=== PATIENT | female | born 1970 | race Caucasian/White ===

== ENCOUNTER 2020-02-20 12:27 | Outpatient (CLI) | payer MEDICARE, MEDICAID, SELFPAY ==
--- NOTE | ~2020-02-20 | MR_ITS ---
EXAMINATION: MR lumbar spine wo con EXAM DATE: 02/20/2020 14:20 INDICATION: Radiculopathy, lumbar region. TECHNIQUE: Multi-sequential, multiplanar MR images of the lumbar spine were obtained without contrast . Sagittal T1, T2, T2 fat saturation images. Axial T2 weighted images. Comparison is made to prior examination from 01/11/2017. FINDINGS: Study is limited due to patient motion. There is moderate to severe disc disease at L3-4 with large a mount of edema at these endplates, mild loss of the vertebral body heights, likely acute or subacute compression fractures. There is been interval partial fusion of the L4-5 disc space. There is moderat e to severe loss of the L5-S1 disc height with 4 mm retrolisthesis. Level by level evaluation: T12-L1: Disc does not extend beyond the endplate margin. Facet arthropathy: Poorly visualized, motion. Neural foraminal stenosis: No stenosis. Central canal stenosis: No stenosis. L1-L2: Disc does not extend beyond the endplate margin. Facet arthropathy: Poorly visualized, motion. Neural foraminal stenosis: No stenosis. Central canal stenosis: No stenosis. L2-L3: There is a mild diffuse disc bulge. Facet arthropathy: Mild. Neural foraminal stenosis: No stenosis. Central canal stenosis: No stenosis. L3-L4: There is a large diffuse disc bulge. Facet arthropathy: Severe . Ligamentum flavum enlargement. Neural foraminal stenosis: Moderate left, mild to moderate right. Central canal stenosis: Severe. L4-L5: Some discogenic material bulging posteriorly, but level appears fused, Facet arthropathy: Bulky, but fused. Neural foraminal stenosis: Moderate bilateral. Central canal stenosis: Moderate to severe. L5-S1: There is a large diffuse disc bulge. Facet arthropathy: Moderate. Neural foraminal stenosis: Moderate to severe bilateral. Central canal stenosis: Moderate. Compared to prior study, there has been progression in the spondylosis at L3-4 in particular. IMPRESSION: 1. L3-4 acute or subacute compression fractures, severe central canal stenosis. 2. Lesser spondylosis above. Reviewed, dictated and finalized at location A. IMPRESSION: 1. L3-4 acute or subacute compression fractures, severe central canal stenosis . 2. Lesser spondylosis above.
== END 2020-02-20 12:28 | disposition home or self-care (01) ==
LOC: ANHIMG 12:39
PROVIDERS: PCP Internal Medicine; Visit Provider Nurse Practitioner Family
DX: M47.26 Other spondylosis with radiculopathy, lumbar region (principal)
CPT/HCPCS: 72148

== ENCOUNTER 2023-07-20 18:43 | Inpatient (IN) | payer MEDICARE, MEDICAID, SELFPAY ==
--- NOTE | ~2023-07-20 | XR_ITS ---
EXAM: XR knee RT 3V DATE: 07/20/2023 21:38 HISTORY: fall WITH NON SPECIFIC RIGHT KNEE AND PELVIC PAIN . COMPARISON: 03/11/2019. FINDINGS: Decreased mineralization. No fracture or dislocation. No lytic or blastic lesion. Severe t ricompartmental osteoarthritis. Loss of valgus alignment. No erosion or periosteal change. Soft tissu es within normal limits. Moderate volume joint effusion. IMPRESSION: No acute osseous finding in the right knee. Reviewed, dictated and finalized at location K. WASHER
--- NOTE | ~2023-07-20 | XR_ITS ---
EXAM: XR pelvis 1-2V DATE: 07/20/2023 21:38 HISTORY: Fall . COMPARISON: None available. FINDINGS: Exam limited by body habitus. Decreased mineralization. No fracture or dislocation. No lyti c or blastic lesion. Degenerative change in the lumbar spine. Mild bilateral hip osteoarthritis. No e rosion or periosteal change. Soft tissues within normal limits. IMPRESSION: No acute osseous finding in the pelvis. Reviewed, dictated and finalized at location K. ANICAL PENCILS ASSEMBLER
--- NOTE | ~2023-07-20 | XR_ITS ---
EXAMINATION: XR chest 1V portable Exam Date/Time: 07/20/2023 19:00 MEDICAL ESTHETICIAN HISTORY: SOB, weakness, fall Comparison: 09/10/2009. RESULT: Exam limited by body habitus. Lines, tubes, and devices: None. Lungs and pleura: Clear. Cardiomediastinal silhouette: Stable. Other: No acute osseous or upper abdominal finding. IMPRESSION: No acute cardiopulmonary process. Reviewed, dictated and finalized at location K. CAL ESTHETICIAN
[2023-07-20 18:48] VITALS: BP 171/100; RESP 20; TEMP 36.4; O2SAT 98
--- NOTE | 2023-07-20 18:52 | ECG_ITS ---
Measurements Intervals [place] Rate: 104 P: 36 MS: 188 QRS: -10 QRSD: 88 T: 43 QT: 336 QTc: 443 Interpretive Statements SINUS TACHYCARDIA INCOMPLETE RIGHT BUNDLE BRANCH BLOCK BORDERLINE R WAVE PROGRESSION, ANTERIOR LEADS INFERIOR INFARCT, AGE INDETERMINATE BORDERLINE ST ABNORMALITY- HIGH LATERAL LEADS BASELINE WANDER- V1-V2 ABNORMAL ECG NO PREVIOUS ECG AVAILABLE FOR COMPARISON Electronically Signed On 07-21-2023 8:09:41 [employer] by Gagandeep Flores D.O.
[2023-07-20 18:59] VITALS: PULSE 105
--- NOTE | 2023-07-20 19:54 | ED.GENADULT ---
HPI - General Adult General Chief complaint: Weakness Stated complaint: weakness, fall, failure to thrive Time Seen by Provider: 07/20/23 19:07 History of Present Illness HPI narrative: This is a 52-year-old female brought in for home a for fall. per EMS her house is incredibly disheveled. The patient was covered in feces. She was unable to get up off floor. Typically the patient says she is able to walk with a cane or a walker. She has 2 home health aides who come and help her although 1 of them is currently ill with a viral illness. Patient notes that she has had some diarrhea today it feels weaker than usual but denies chest pain shortness of breath abdominal pain fever chills cough or symptoms. Related Data Allergies Allergy/AdvReac Type Severity Reaction Status Date / Time latex Allergy Mild Rash Unverified 07/20/23 20:16 Sulfa (Sulfonamide Allergy Redness of Verified 07/20/23 20:16 Antibiotics) Skin vancomycin Allergy Redness of Verified 07/20/23 20:16 Skin PMFSH Past Medical History Medical History Bipolar disorder, unspecified COPD (chronic obstructive pulmonary disease) Diabetes Hypertension Exam Narrative: APPEARANCE: Patient is disheveled, malodorous Head: atraumatic. EYES: EOMI, NOSE: Atraumatic NECK: Trachea midline RESPIRATORY: No increased rate of breathing, clear to auscultation CARDIOVASCULAR: RRR, no peripheral ABDOMINAL: Obese, nontender no guarding rebound, no CVA tenderness MUSCULOSKELETAl: No obvious deformities NEURO: Alert. Moving 4/4 extremities SKIN:: Warm, dry. Normal color, minor abrasion with right knee PSYCHIATRIC: Normal affect Course Vital Signs Vital signs: Vital Signs Temperature 97.6 F 07/20/23 18:48 Respiratory Rate 20 07/20/23 18:48 Blood Pressure 171/100 H 07/20/23 18:48 Pulse Oximetry 98 07/20/23 18:48 Oxygen Delivery Nasal Cannula 07/20/23 18:48 Oxygen Flow Rate 2 07/20/23 18:48 Temperature 97.6 F 07/20/23 18:48 Pulse Rate 92 07/20/23 22:24 Respiratory Rate 19 07/20/23 22:24 Blood Pressure 150/91 H 07/20/23 22:24 Pulse Oximetry 98 12/31/23 22:24 Oxygen Delivery Nasal Cannula 07/20/23 18:48 Oxygen Flow Rate 2 07/20/23 18:48 Medical Decision Making [facility] Narrative Medical decision making narrative: -Course: 52-year-old female presenting with weakness and a fall at home. Workup was significant for influenza A. Patient's gait is still unsteady and she has a poor candidate for discharge due to debility and poor social support. Patient will be admitted to observation or PT OT and social work consult Started on Tamiflu. -DDX includes but is not limited to: dehydration, COVID, flu, RSV, pneumonia, UTI, sepsis -Co-morbidities complicating care: bipolar disorder, hypertension, COPD, diabetes, morbid obesity -Social determinants of health: disabled due to chronic knee pain and psychiatric illness. Lives in apartment where she has help from home health workers -Hx from independent Sources: EMS- they reported the house is unfit for human habition. Dirty/Garbage/feces everywhere. -Independent interpretation of studies: white count 12.4. Creatinine 1.5. No baseline to compare. Lactic 2.4. Patient has been fluid resuscitated. Troponin tech double. BNP normal. Urine not indicative of infection. Positive for flu A. Pelvis knee and chest x-ray is normal. Independent EKG interpretation: Rhythm [sinus], Rate [104], [place] -[normal], [place] -[normal], QRS [narrow], QTC [normal], T waves -[negative for concerning inversions], ST Segments - [Negative for concerning elevations] Final interpretations: Sinus tachycardia with nonspecific T-wave inversions. Trop neg x2. -Discussion of Management/Consultants: Estrella - Hospitalist -Interventions: DuoNeb treatment, 3 L normal saline, Tamiflu -Shared decision making / Disposition: Observation Vital Signs Vital Signs: Vital Signs Temperature 97.6 F 07/20/23 18:48 Respiratory Rate 20 07/20/23 18:48 Blood Pressure 171/100 H 07/20/23 18:48 Pulse Oximetry 98 07/20/23 18:48 Oxygen Delivery Nasal Cannula 07/20/23 18:48 Oxygen Flow Rate 2 07/20/23 18:48 Temperature 97.6 F 07/20/23 18:48 Pulse Rate 92 07/20/23 22:24 Respiratory Rate 19 07/20/23 22:24 Blood Pressure 150/91 H 07/20/23 22:24 Pulse Oximetry 98 07/20/23 22:24 Oxygen Delivery Nasal Cannula 07/20/23 18:48 Oxygen Flow Rate 2 07/20/23 18:48 Lab Data 07/20/23 20:10 07/20/23 20:10 Labs: Lab Results 07/20/23 07/20/23 Range/Units 20:10 20:53 WBC 12.4 H (4.5-10.0) K/mm3 RBC 4.63 (4.2-5.4) M/mm3 Hgb 15.5 H (12.0-15.0) g/dL Hct 47.2 H (37.0-47.0) % MCV 101.9 H (80-100) fl MCH 33.5 (26-34) pg MCHC 32.8 (32-36) g/dl RDW 13.2 (11.5-14.5) % Plt Count 239 (150-375) k/mm3 MPV 8.7 (7.4-10.4) fl Immature Gran % (Auto) 0.6 H (0-0.5) % Neut % (Auto) 82.2 H (45.5-73.1) % Lymph % (Auto) 8.3 L (18.3-44.2) % [place] % (Auto) 7.4 (2.6-8.5) % Eos % (Auto) 1.1 (0-4.4) % Baso % (Auto) 0.4 (0.2-1.2) % Lymph # (Auto) 1.02 (0.9-3.2) K/mm3 [place] # (Auto) 0.9 H (0.1-0.6) K/mm3 Eos # (Auto) 0.1 (0-0.3) K/mm3 Baso # (Auto) 0.1 (0.0-0.1) K/mm3 Abs Immat Gran (auto) 0.08 H (0.00-0.031) K/mm3 Absolute Neuts (auto) 10.2 H (1.3-6.7) K/mm3 Absolute Nucleated RBC 0.0 (0.0-0.012) K/mm3 Nucleated RBC % 0.0 (0.0-0.2) % PT 14.0 (11.1-14.7) Seconds INR 1.0 APTT 26.2 (22.3-36.8) SECONDS Sodium 137 (137-145) mmol/L Potassium 4.4 (3.4-5.0) mmol/L Chloride 101 (98-107) mmol/L Carbon Dioxide 25 (22-30) mmol/L Anion Gap 11 (8-16) mmol/L BUN 20 H (7-17) mg/dL Creatinine 1.50 H (0.7-1.0) mg/dL Estim Creat Clear Calc 55 ml/min Estimated GFR 36 L (59 - ) Glucose 221 H (65-110) mg/dL Lactic Acid 2.4 H (0.7-2.0) mmol/L Calcium 9.4 (8.4-10.2) mg/dL Phosphorus 2.2 L (2.5-4.5) mg/dL Magnesium 1.8 (1.6-2.3) mg/dL Total Bilirubin 0.5 (0.2-1.3) mg/dL AST 30 (14-36) U/L ALT 28 (6-35) U/L Alkaline Phosphatase 141 H (38-126) U/L Troponin I < 0.012 (0.000-0.034) ng/mL NT-Pro-B Natriuret Pep 362 H (19.9-100) pg/mL Total Protein 8.0 (6.3-8.2) g/dL Albumin 4.1 (3.5-5.1) g/dL Lipase 118 (23-300) U/L TSH (Reflex) 0.919 (0.465-4.68) uIU/mL Urine Color Dark yellow (Yellow) Urine Appearance Cloudy H (Clear) Urine pH 5.5 (5.0-9.0) Ur Specific [place] 1.035 (1.001-1.035) Urine Protein 2+ H (Negative) mg/dL Urine Glucose (UA) Negative (Negative) mg/dL Urine Ketones Trace H (Negative) mg/dL Ur Blood (Man) Negative (Negative) Urine Nitrate Negative (Negative) Urine Bilirubin Negative (Negative) Urine Urobilinogen 1.0 (<2.0) mg/dL Add Ur Microanalysis Reviewed Leukocyte Esterase Rfl Negative (Negative) JOSE ALBERTO/UL Urine RBC 0-2 (0-2) /hpf Urine WBC 0-5 /hpf Ur Squamous Epith Cells Few (Few) /hpf Urine Bacteria None seen /hpf Urine Casts 11-20 Influenza A (RT-PCR) Positive A (Negative) Influenza B (RT-PCR) Negative (Negative) RSV (RT-PCR) Negative (Negative) SARS-CoV-2 RNA (RT-PCR) Negative (Negative) Urine Characteristics Clear Discharge Plan Discharge Clinical Impression: Adult failure to thrive, Influenza A, Weakness Patient Disposition: Home, Self-Care Condition: Stable Instructions: Antibiotic Form Follow-up/Referrals: Neftali,MD Maykel [Primary Care Provider] -
[2023-07-20] MEDS: ALBUTEROL SULFATE NEB 2.5 MG/3 ML INH 5 MG INHALATION (20:00)
[2023-07-20] MEDS: IPRATROPIUM BR 0.02% INH SOLN 0.5 MG/2.5 ML VIAL 1 MG INHALATION (20:00)
[2023-07-20 20:08] VITALS: PULSE 105; RESP 14
[2023-07-20] MEDS: SODIUM CHLORIDE 0.9% IV 3,000 ML 999 ML IV CONT (20:16)
[2023-07-20 20:21] LABS: Basophils Absolute Auto 0.1 K/mm3 (0.0-0.1); Basophils Percent Auto 0.4 % (0.2-1.2); Eosinophils Absolute Auto 0.1 K/mm3 (0-0.3); Eosinophils Percent Auto 1.1 % (0-4.4); Hematocrit 47.2 % (37.0-47.0); Hemoglobin 15.5 g/dL (12.0-15.0); Immature Granulocyte Absolute 0.08 K/mm3 (0.00-0.031); Immature Granulocyte Percent A 0.6 % (0-0.5); Lymphocytes Absolute Auto 1.02 K/mm3 (0.9-3.2); Lymphocytes Percent Auto 8.3 % (18.3-44.2); Mean Corpuscular HGB Conc 32.8 g/dl (32-36); Mean Corpuscular Hemoglobin 33.5 pg (26-34); Mean Corpuscular Volume 101.9 fl (80-100); Mean Platelet Volume 8.7 fl (7.4-10.4); Monocytes Absolute Auto 0.9 K/mm3 (0.1-0.6); Monocytes Percent Auto 7.4 % (2.6-8.5); Neutrophils Absolute Auto 10.2 K/mm3 (1.3-6.7); Neutrophils Percent Auto 82.2 % (45.5-73.1); Platelet Count Result 239 k/mm3 (150-375); Red Blood Count 4.63 M/mm3 (4.2-5.4); Red Cell Distribution Width 13.2 % (11.5-14.5); White Blood Count 12.4 K/mm3 (4.5-10.0)
[2023-07-20 20:31] LABS: Partial Thromboplastin Time 26.2 SECONDS (22.3-36.8)
[2023-07-20 20:32] LABS: Alanine Aminotransferase 28 U/L (6-35); Albumin Level 4.1 g/dL (3.5-5.1); Alkaline Phosphatase 141 U/L (38-126); Anion Gap 11 mmol/L (8-16); Aspartate Amino Transferase 30 U/L (14-36); Bilirubin,Total 0.5 mg/dL (0.2-1.3); Blood Urea Nitrogen 20 mg/dL (7-17); Calcium 9.4 mg/dL (8.4-10.2); Carbon Dioxide 25 mmol/L (22-30); Chloride 101 mmol/L (98-107); Estimated CRCL calculation 55 ml/min; Estimated Glomerular Filt Rate 36; Glucose 221 mg/dL (65-110); Phosphorus 2.2 mg/dL (2.5-4.5); Potassium 4.4 mmol/L (3.4-5.0); Sodium 137 mmol/L (137-145)
[2023-07-20 20:33] LABS: Lactic Acid Reflex 2.4 mmol/L (0.7-2.0); Lipase 118 U/L (23-300); Magnesium 1.8 mg/dL (1.6-2.3)
[2023-07-20 20:40] VITALS: PULSE 108; RESP 13
[2023-07-20 20:41] LABS: NT Pro B Type Natriuretic Pept 362 pg/mL (19.9-100)
[2023-07-20 20:44] LABS: Troponin I < 0.012 ng/mL (0.000-0.034)
[2023-07-20 20:55] LABS: Influenza A QL RT-PCR Positive (Negative); Influenza B QL RT-PCR Negative (Negative); RSV RNA, RT-PCR Negative (Negative); SARS-CoV-2 RNA PCR Negative (Negative)
[2023-07-20 21:04] LABS: Thyroid Stimulating Hormone Reflex 0.919 uIU/mL (0.465-4.68)
[2023-07-20 21:10] LABS: Appearance Urine Cloudy (Clear); Bacteria Urine None Seen /hpf; Bilirubin Urine Negative (Negative); Blood Urine Negative (Negative); Color Urine Dark Yellow (Yellow); Glucose Urine UA Negative (Negative); Ketones Urine Trace mg/dL (Negative); Leukocyte Esterase Ur Negative LEU/UL (Negative); Need Manual Microscopic Reviewed; Nitrate Urine Negative (Negative); Protein Urine 2+ mg/dL (Negative); RBC Urine 0-2 /hpf (0-2); Specific Grav Ur 1.035 (1.001-1.035); Squamous Epithelial Cell Urine Few /hpf (Few); WBC Urine 0-5 /hpf; pH Urine 5.5 (5.0-9.0)
[2023-07-20 21:11] LABS: Add Urine Microscopic? YES
[2023-07-20] MEDS: OSELTAMIVIR PHOSPHATE 75 MG CAPSULE PO (21:43)
[2023-07-20 22:24] VITALS: BP 150/91; PULSE 92; RESP 19; O2SAT 98
[2023-07-20 23:17] LABS: Reflex Lactic Acid Yes or No Add Lactic
--- NOTE | 2023-07-20 23:54 | PM.IMHP ---
H&P: HPI History of Present Illness Date/Time: 07/20/23 23:54 Chief Complaint: Patient brought to the ER for evaluation after she fell out of bed at home Narrative: 52 years old morbidly obese female called 911 for lift assist after she fell out of bed. She said she was too weak to stand. EMS came to evaluate the patient and found the home neither fit nor safe to live in. Patient states that she has not taken above since [place]. There appeared to be fecal matter on bilateral lower extremities as well under the told nails. Her hair appeared dirty and matted. Her inner thighs were mottled, there was redness at both knees and redness in between and under her breasts. Patient brought to the ER for evaluation. Workup was done which showed LUCA and electrolyte imbalance. She had unsteady gait and unable to ambulate with high risk for fall. She also tested positive for flu. She is being placed under observation for medical management, IV hydration, PT/OT and and care coordination consult for placement. Review of Systems Review of Systems: 14 systems were reviewed with pertinent positives and negatives per HPI. Except as documented in the HPI/progress notes, all other systems were reviewed and are negative. All systems reviewed & are unremarkable except as noted in HPI and below PMFSH Past Medical History Medical History Bipolar disorder, unspecified COPD (chronic obstructive pulmonary disease) Diabetes Hypertension Social History Social History Smoking packs per day: 2 Smoking cigarettes per day: 40.0 Years smoked: 6 Smoking pack-years: 12.00 Smoking status: Former smoker Tobacco type: cigarettes Meds Home Medications and Allergies Allergies Allergy/AdvReac Type Severity Reaction Status Date / Time latex Allergy Mild Rash Verified 07/20/23 23:54 Sulfa (Sulfonamide Allergy Redness of Verified 07/20/23 23:54 Antibiotics) Skin vancomycin Allergy Redness of Verified 07/20/23 23:54 Skin morphine AdvReac Redness of Verified 07/21/23 00:28 Skin Vital Signs Vital Signs - 24 hr 07/20/23 18:48 07/20/23 18:59 07/20/23 20:08 Temperature 36.4 C Pulse Rate 105 H 105 H Respiratory Rate 20 14 Blood Pressure 171/100 H Pulse Oximetry 98 Oxygen Delivery Nasal Cannula Oxygen Flow Rate 2 07/20/23 20:40 07/20/23 22:24 Temperature Pulse Rate 108 H 92 Respiratory Rate 13 19 Blood Pressure 150/91 H Pulse Oximetry 98 Oxygen Delivery Oxygen Flow Rate Exam Narrative: PHYSICAL EXAMINATION: Vital signs: Please see the chart General physical exam: Morbidly obese female, lying in bed, disheveled in appearance, appears to be tired fatigue Head/eyes: Atraumatic, EOMI, PERRLA ENT: + dry mucous membranes, nasal passages clear Neck: Supple, full range of motion, trachea midline CVS: S1 + S2, regular rate and rhythm, no murmurs Respiratory: Bilaterally fair air entry in both lung ly, mild B/L crackles, symmetric chest expansion, no distress Abdomen: Soft, non-tender, bowel sounds +ve, no organomegaly Extremities: No clubbing, no cyanosis, no edema, no calf tenderness Musculoskeletal: Moves all, decreased range of motion, no muscle spasms Skin: Warm, dry, no jaundice, no cyanosis, + redness on knees and under breasts, + dirty nails of the feet Neurological: Awake, alert, oriented x 3, cranial nerves II-XII intact, no focal neurological deficits Psychiatric: Normal mood, non suicidal H&P: Results Labs Labs: Short CBC 07/20/23 Range/Units 20:10 WBC 12.4 H (4.5-10.0) K/mm3 Hgb 15.5 H (12.0-15.0) g/dL Hct 47.2 H (37.0-47.0) % Plt Count 239 (150-375) k/mm3 [facility] 07/20/23 20:10 Sodium 137 Potassium 4.4 Chloride 101 Carbon Dioxide 25 BUN 20 H Creatinine 1.50 H Glucose 221 H Calcium 9.4 Cardiac Enzymes 07/20/23 Range/Units 20:10 Troponin I < 0.012 (0.000-0.034) ng/mL Liver Function 07/20/23 Range/Units 20:10 Total Bilirubin 0.5 (0.2-1.3) mg/dL AST 30 (14-36) U/L ALT 28 (6-35) U/L Alkaline Phosphatase 141 H (38-126) U/L Albumin 4.1 (3.5-5.1) g/dL Urine 07/20/23 Range/Units 20:53 Urine Color Dark yellow (Yellow) Urine Appearance Cloudy H (Clear) Urine pH 5.5 (5.0-9.0) Ur Specific [place] 1.035 (1.001-1.035) Urine Protein 2+ H (Negative) mg/dL Urine Glucose (UA) Negative (Negative) mg/dL Assessment and Plan Assessment and plan (1) Adult failure to thrive: Code(s): R62.7 - Adult failure to thrive Status: Acute (2) Influenza A: Code(s): J10.1 - Influenza due to other identified influenza virus with other respiratory manifestations Status: Acute (3) Weakness: Code(s): R53.1 - Weakness Status: Acute (4) Bipolar disorder, unspecified: Code(s): F31.9 - Bipolar disorder, unspecified Status: Acute (5) COPD (chronic obstructive pulmonary disease): Code(s): J44.9 - Chronic obstructive pulmonary disease, unspecified Status: Acute (6) Diabetes: Code(s): E11.9 - Type 2 diabetes mellitus without complications Status: Acute (7) Hypertension: Code(s): I10 - Essential (primary) hypertension Status: Acute (8) LUCA (acute kidney injury): Code(s): N17.9 - Acute kidney failure, unspecified Status: Acute (9) At high risk for falls: Code(s): Z91.81 - History of falling Status: Acute (10) Intertrigo: Code(s): L30.4 - Erythema intertrigo Status: Acute Plan Place patient under observation [place] [facility] Patient started on Tamiflu 75 mg p.o. b.i.d. for 5 days Patient appears dehydrated causing her LUCA She received 1 L of normal saline in the ER Patient started on normal saline 100 cc/hour on the floor Strict input and output monitoring Patient had mild leukocytosis with lactic acidosis which responded well to IV hydration Lactic acidosis has now resolved Patient has mild hypophosphatemia which is being corrected with IV potassium phosphate Patient is at high risk for fall and unable to take care of herself at home Miconazole cream ordered for intertrigo at multiple sites Patient started on Accu-Cheks with Insulin coverage as per protocol PT/OT evaluation ordered Care coordination consult given for safe placement ? Patient seen and examined at bedside ? Collaborated with patient's nurse at the bedside in detail and addressed all concerns ? Labs, electrolytes, radiology, investigations and test results reviewed ? Spoke with ED provider and discussed patient's presentation, ED treatment, and workup in thorough detail ? ED/Consult/Nursing/Ancilliary notes on the chart reviewed and appreciated ? Spoke with patient/family at the bedside and answered all the questions that they had Continue with home meds. Monitor patient closely while admitted. Patient needs close follow up with PCP/specialists as an outpatient to address chronic medical issues. Repeat labs in a.m. Electrolyte replacement as per protocol. Patient will be monitored very closely on the floor. Further recommendations as per the hospital course. Patient's medical management will be taken over by our hospitalist team in a.m.
[2023-07-20 23:57] VITALS: BP 150/94; PULSE 90; RESP 18; O2SAT 96
[2023-07-21] VITALS (9 sets, daily range): BP systolic 118–160; BP diastolic 62–87; PULSE 78–98; RESP 14–22; TEMP 36.2–36.7; O2SAT 92–100; BMI 55.6
--- NOTE | 2023-07-21 00:15 | ADMGEN ---
This patient, Kathleen Oreilly, was admitted to Medical Room 258-01. Patient/family oriented to hospital policies and general routines including ID bracelet, bed and alarms, visiting hours, pain management, procedures, bathroom and other care routines, personal items, smoking policy, room service/diet, and visiting hours. Information on how to activate the Rapid Response Team has been discussed. Patient/Family are encouraged to report perceived risks to care and to ask questions if they do not understand what they are told or what they should do.
[2023-07-21 00:19] LABS: Lactic Acid 1.5 mmol/L (0.7-2.0)
[2023-07-21 00:30] LABS: Troponin I < 0.012 ng/mL (0.000-0.034)
--- NOTE | 2023-07-21 01:02 | PC.NURSE ---
Unable to complete patient's med rec at this time. She states she does not know what medications she takes, but her friend Joel would be able to help. Unfortunately, she does not want us to call him until the morning. This information was given to patient's primary nurse Wild melendrez.
[2023-07-21] MEDS: SODIUM CHLORIDE 0.9% IV 1,000 ML 100 ML IV CONT ×3 (01:07→20:13)
[2023-07-21] MEDS: POTASSIUM PHOS,M-BASIC-D-BASIC 20 MMOL in SODIUM CHLORIDE 0.9% IV 250 ML 64.17 MMOL IVPB (01:07)
[2023-07-21 08:52] LABS: Basophils Percent Auto 0.6 % (0.2-1.2); Eosinophils Absolute Auto 0.2 K/mm3 (0-0.3); Eosinophils Percent Auto 3.1 % (0-4.4); Hematocrit 42.2 % (37.0-47.0); Hemoglobin 13.6 g/dL (12.0-15.0); Immature Granulocyte Absolute 0.04 K/mm3 (0.00-0.031); Immature Granulocyte Percent A 0.6 % (0-0.5); Lymphocytes Percent Auto 30.9 % (18.3-44.2); Mean Corpuscular HGB Conc 32.2 g/dl (32-36); Mean Corpuscular Hemoglobin 33.3 pg (26-34); Mean Corpuscular Volume 103.2 fl (80-100); Mean Platelet Volume 8.5 fl (7.4-10.4); Monocytes Absolute Auto 0.9 K/mm3 (0.1-0.6); Monocytes Percent Auto 13.5 % (2.6-8.5); Neutrophils Absolute Auto 3.5 K/mm3 (1.3-6.7); Neutrophils Percent Auto 51.3 % (45.5-73.1); Platelet Count Result 167 k/mm3 (150-375); Red Blood Count 4.09 M/mm3 (4.2-5.4); White Blood Count 6.8 K/mm3 (4.5-10.0)
[2023-07-21 09:04] LABS: Alanine Aminotransferase 22 U/L (6-35); Albumin Level 3.6 g/dL (3.5-5.1); Alkaline Phosphatase 108 U/L (38-126); Anion Gap 10 mmol/L (8-16); Aspartate Amino Transferase 26 U/L (14-36); Bilirubin,Total 0.5 mg/dL (0.2-1.3); Blood Urea Nitrogen 16 mg/dL (7-17); Calcium 8.3 mg/dL (8.4-10.2); Carbon Dioxide 23 mmol/L (22-30); Chloride 104 mmol/L (98-107); Estimated CRCL calculation 69 ml/min; Estimated Glomerular Filt Rate 47; Glucose 129 mg/dL (65-110); Potassium 4.2 mmol/L (3.4-5.0); Sodium 137 mmol/L (137-145)
[2023-07-21] MEDS: ENOXAPARIN 40 MG/0.4 ML SYRINGE SUB-Q ×2 (10:04→20:16)
--- NOTE | 2023-07-21 14:29 | P.PNIM_ITS ---
Progress Note: A&P Assessment and Plan (1) Influenza A: Code(s): J10.1 - Influenza due to other identified influenza virus with other respiratory manifestations Status: Acute Assessment and Plan: 07/21/23: * Respiratory panel showing positive for Influenza A * Currently on 2L NC * She is not in any acute respiratory distress (2) Weakness: Code(s): R53.1 - Weakness Status: Acute Assessment and Plan: 07/21/23: * Patient reports she has fallen at least 3 x in the last week or so. * PT and OT ordered. (3) At high risk for falls: Code(s): Z91.81 - History of falling Status: Acute Assessment and Plan: 07/21/23: * Patient has had 3 falls in the past week. She has abrasion to right knee from last fall * Right knee x-ray negative for fracture or dislocation * PT and OT ordered (4) Bipolar disorder, unspecified: Code(s): F31.9 - Bipolar disorder, unspecified Status: Acute Assessment and Plan: 07/21/23: * Restarted Vraylar and Lamictal * Restarted Austedo (5) COPD (chronic obstructive pulmonary disease): Code(s): J44.9 - Chronic obstructive pulmonary disease, unspecified Status: Acute Assessment and Plan: 07/21/23: * of note * Currently on 2L NC (6) Diabetes: Code(s): E11.9 - Type 2 diabetes mellitus without complications Status: Acute Assessment and Plan: 07/21/23: * accu checks ordered AC/HS * hypoglycemic protocol * SSI for correction only * Hold glimepiride (7) Hypertension: Code(s): I10 - Essential (primary) hypertension Status: Acute Assessment and Plan: 07/21/23: * B/P ranging 138/75-151/87 * Restart Metoprolol (8) LUCA (acute kidney injury): Code(s): N17.9 - Acute kidney failure, unspecified Status: Acute Assessment and Plan: 07/21/23: * BUN 16, Creatinine 1.20, eGFR 47 * Continue to trend labs. (9) Intertrigo: Code(s): L30.4 - Erythema intertrigo Status: Acute Assessment and Plan: 07/21/23: * Miconazole powder ordered (10) Anxiety: Code(s): F41.9 - Anxiety disorder, unspecified Status: Acute Assessment and Plan: 07/21/23: * Restarted Buspar, hydroxyzine,Bupropion Time Spent With Patient Time with patient: Greater than 35 minutes Subjective Date/time seen: 07/21/23 14:29 Interval history: This is a 52 year old female who presented to the hospital on 07/20/23 for evaluation after a fall out fo the bed. EMS was called and patient was found to be in poor living conditions and poor hygeine. Work up in the hospital includes CXR was negative, right knee x-ray shown a moderate joint effusion and tricompartmental osteoarthritis, pelvis x-ray shown mild bilateral hip osteoar thritis. EKG shown sinus tachycardia with right BBB, rate 104 Respiratory panel shown that she was positive for Influenza A. WBC 12.4, BUN 20, Creatinine 1.50, eGFR 36, BG 221, Lactate 1.5, Phos 2.2, Magnesium 1.8, Liver enzymes were normal, Alk phos 141, Troponin was negative, proBNP 362, Lipase 118, TSH 0.919. UA shown 2+ protein, trace ketones otherwise negative. Blood cultures were obtained and are pending. Patient was given 1L NS, started on IVF, given a nebulizer treatment, and started on tamiflu. PT and OT were ordered to evaluate patient. Will get case management involved about living conditions. On examination today patient is alert and oriented x3, lying in the bed. She denies any nausea, vomiting, diarrhea, abdominal pain, chest pain, or shortness of breath. She endorses anxiety. Labs today reveal an essentially normal CBC, BUN 16, creatinine 1.20, eGFR 47, BG 129, liver enzymes are normal, CA+ 8.3. Review of Systems Review of Systems: All systems reviewed & are unremarkable except as noted in HPI and below Constitutional: Constitutional: Reports as per HPI and Reports no additional constitutional complaints Eyes: Eyes: Reports as per HPI and Reports no additional eye complaints ENT: Reports system reviewed and no additional complaints, except as documented and Reports as per HPI Cardiovascular: Cardiovascular: Reports as per HPI and Reports no additional cardiovascular complaints Respiratory: Respiratory: Reports as per HPI and Reports no additional respiratory complaints Gastrointestinal: Gastrointestinal: Reports as per HPI and Reports no additional gastrointestinal complaints Genitourinary: Genitourinary: Reports no additional female genitourinary complaints and Reports as per HPI Musculoskeletal: Musculoskeletal: Reports no additional musculoskeletal complaints and Reports as per HPI Integumentary/Breasts: Skin/Breast: Reports system reviewed and no additional complaints, except as docu and Reports as per HPI Neurologic: Reports system reviewed and no additional complaints, except as documented and Reports as per HPI Psychiatric: Psychiatric: Reports no additional psychiatric complaints and Reports as per HPI Exam Narrative: General: In no acute distress, well nourished Head: atraumatic, no encephalopathy Eyes: EOMI, PERRLA, sclera clear ENT:tacky mucous membranes, nasal passages clear Neck: supple, no JVD, no adenopathy, trachea midline Cardiac: Normal S1 and S2. No murmur, gallops or friction rubs, peripheral pulses intact. Respiratory: Lungs clear to auscultation, no adventitious lung sounds, currently on 2L NC Gastrointestinal: soft, large, non-distended, non-tender, normoactive bowel sounds. : voiding without difficulty. Extremities: moves all extremities well, no edema, good ROM, strength 5/5 Skin: abrasion to left knee, erythema and yeast in folds. Neuro: Alert and oriented x4, cranial nerves intact, no neuro deficits. Psych: normal mood, normal affect, interactive Objective Data Vital Signs Vital Signs: Vital Signs - 24 hr 07/20/23 18:48 07/20/23 18:59 07/20/23 20:08 Temperature 97.6 F Pulse Rate 105 H 105 H Respiratory Rate 20 14 Blood Pressure 171/100 H Pulse Oximetry 98 Oxygen Delivery Nasal Cannula Oxygen Flow Rate 2 07/20/23 20:40 07/20/23 22:24 07/21/23 00:32 Temperature Pulse Rate 108 H 92 Respiratory Rate 13 19 Blood Pressure 150/91 H Pulse Oximetry 98 96 Oxygen Delivery Nasal Cannula Oxygen Flow Rate 1 07/20/23 23:57 07/21/23 00:27 07/21/23 03:53 Temperature 98.1 F 97.4 F L Pulse Rate 90 96 88 Respiratory Rate 18 20 20 Blood Pressure 150/94 H 132/86 140/75 Pulse Oximetry 96 96 92 Oxygen Delivery Oxygen Flow Rate 07/21/23 08:00 07/21/23 09:07 07/21/23 12:00 Temperature 98.0 F 97.4 F L Pulse Rate 85 98 95 Respiratory Rate 22 H 14 22 H Blood Pressure 124/62 118/73 138/75 Pulse Oximetry 95 100 99 Oxygen Delivery Oxygen Flow Rate 07/21/23 10:50 07/21/23 00:31 Temperature 98.1 F Pulse Rate 96 Respiratory Rate 20 Blood Pressure 132/86 Pulse Oximetry Oxygen Delivery Nasal Cannula Oxygen Flow Rate 0.5 Intake/Output Intake/Output: Intake & Output 07/18/23 07/19/23 07/20/23 07/21/23 23:59 23:59 23:59 23:59 Intake Total 1442 Output Total 800 Balance 642 Meds/Results Medications: Active Medications Generic Name Dose Route Start Last Admin Trade Name Freq PRN Reason Stop Dose Admin Acetaminophen 650 mg 07/21/23 00:38 Acetaminophen 325 Mg Tablet PO Q4H PRN Mild Pain (1-3) or Fever Al Hydrox/Mg Hydrox/Simethicone 30 ml 07/21/23 00:38 Mag Hydrox/Al Hydrox/Simeth 30 Ml Udc PO QID PRN Dyspepsia Enoxaparin Sodium 40 mg 07/21/23 09:00 07/21/23 10:04 Enoxaparin 40 Mg/0.4 Ml Syringe SUB-Q 40 mg Q12HR ADOLFO Administration Sodium Chloride 1,000 mls @ 100 mls/hr 07/21/23 00:40 07/21/23 01:07 Normal Saline Iv IV CONT 100 mls/hr .Q10H ADOLFO Administration Miconazole Nitrate 1 applic 07/21/23 09:00 07/21/23 10:05 Miconazole 2% Antifungal Ointment 56 Gm TOPICAL 1 applic Q12HR ADOLFO Administration Radiology Results: ITS Impressions Chest X-Ray 07/20/23 19:17 IMPRESSION: No acute cardiopulmonary process. Knee X-Ray 07/20/23 21:53 IMPRESSION: No acute osseous finding in the right knee. Pelvis X-Ray 07/20/23 21:54 IMPRESSION: No acute osseous finding in the pelvis. Labs Labs: Laboratory Results - last 24 hr 07/20/23 07/20/23 07/20/23 20:10 20:53 23:31 WBC 12.4 H RBC 4.63 Hgb 15.5 H Hct 47.2 H MCV 101.9 H MCH 33.5 MCHC 32.8 RDW 13.2 Plt Count 239 MPV 8.7 Immature Gran % (Auto) 0.6 H Neut % (Auto) 82.2 H Lymph % (Auto) 8.3 L [place] % (Auto) 7.4 Eos % (Auto) 1.1 Baso % (Auto) 0.4 Lymph # (Auto) 1.02 [place] # (Auto) 0.9 H Eos # (Auto) 0.1 Baso # (Auto) 0.1 Abs Immat Gran (auto) 0.08 H Absolute Neuts (auto) 10.2 H Absolute Nucleated RBC 0.0 Nucleated RBC % 0.0 PT 14.0 INR 1.0 APTT 26.2 Sodium 137 Potassium 4.4 Chloride 101 Carbon Dioxide 25 Anion Gap 11 BUN 20 H Creatinine 1.50 H Estim Creat Clear Calc 55 Estimated GFR 36 L Glucose 221 H Lactic Acid 2.4 H 1.5 Calcium 9.4 Phosphorus 2.2 L Magnesium 1.8 Total Bilirubin 0.5 AST 30 ALT 28 Alkaline Phosphatase 141 H Troponin I < 0.012 < 0.012 NT-Pro-B Natriuret Pep 362 H Total Protein 8.0 Albumin 4.1 Lipase 118 TSH (Reflex) 0.919 Urine Color Dark yellow Urine Appearance Cloudy H Urine pH 5.5 Ur Specific [place] 1.035 Urine Protein 2+ H Urine Glucose (UA) Negative Urine Ketones Trace H Ur Blood (Man) Negative Urine Nitrate Negative Urine Bilirubin Negative Urine Urobilinogen 1.0 Add Ur Microanalysis Reviewed Leukocyte Esterase Rfl Negative Urine RBC 0-2 Urine WBC 0-5 Ur Squamous Epith Cells Few Urine Bacteria None seen Urine Casts 11-20 Influenza A (RT-PCR) Positive A Influenza B (RT-PCR) Negative RSV (RT-PCR) Negative SARS-CoV-2 RNA (RT-PCR) Negative 07/21/23 08:47 WBC 6.8 RBC 4.09 L Hgb 13.6 Hct 42.2 MCV 103.2 H MCH 33.3 MCHC 32.2 RDW 13.0 Plt Count 167 MPV 8.5 Immature Gran % (Auto) 0.6 H Neut % (Auto) 51.3 Lymph % (Auto) 30.9 [place] % (Auto) 13.5 H Eos % (Auto) 3.1 Baso % (Auto) 0.6 Lymph # (Auto) 2.10 [place] # (Auto) 0.9 H Eos # (Auto) 0.2 Baso # (Auto) 0.0 Abs Immat Gran (auto) 0.04 H Absolute Neuts (auto) 3.5 Absolute Nucleated RBC 0.0 Nucleated RBC % 0.0 PT INR APTT Sodium 137 Potassium 4.2 Chloride 104 Carbon Dioxide 23 Anion Gap 10 BUN 16 Creatinine 1.20 H Estim Creat Clear Calc 69 Estimated GFR 47 L Glucose 129 H Lactic Acid Calcium 8.3 L Phosphorus Magnesium Total Bilirubin 0.5 AST 26 ALT 22 Alkaline Phosphatase 108 Troponin I NT-Pro-B Natriuret Pep Total Protein 7.0 Albumin 3.6 Lipase TSH (Reflex) Urine Color Urine Appearance Urine pH Ur Specific [place] Urine Protein Urine Glucose (UA) Urine Ketones Ur Blood (Man) Urine Nitrate Urine Bilirubin Urine Urobilinogen Add Ur Microanalysis Leukocyte Esterase Rfl Urine RBC Urine WBC Ur Squamous Epith Cells Urine Bacteria Urine Casts Influenza A (RT-PCR) Influenza B (RT-PCR) RSV (RT-PCR) SARS-CoV-2 RNA (RT-PCR) Imaging Radiologist's impression: EXAMINATION:? XR chest 1V portable Exam Date/Time:? 07/20/2023 19:00 PAY STATION COLLECTOR HISTORY: SOB, weakness, fall ? Comparison:? 09/10/2009. RESULT: Exam limited by body habitus. Lines, tubes, and devices:? None. Lungs and pleura:? Clear. Cardiomediastinal silhouette:? Stable. Other:? No acute osseous or upper abdominal finding. ? IMPRESSION: No acute cardiopulmonary process. Reviewed, dictated and finalized at location K. STATION COLLECTOR EXAM:? XR knee RT 3V DATE: 07/20/2023 21:38 HISTORY: fall WITH NON SPECIFIC RIGHT KNEE AND PELVIC PAIN . COMPARISON:? 03/11/2019. FINDINGS:? Decreased mineralization. No fracture or dislocation. No lytic or blastic lesion. Severe tricompartmental osteoarthritis. Loss of valgus alignment. No erosion or periosteal change. Soft tissues within normal limits. Moderate volume joint effusion. IMPRESSION: No acute osseous finding in the right knee. EXAM:? XR pelvis 1-2V DATE: 07/20/2023 21:38 HISTORY: Fall . COMPARISON:? None available. FINDINGS: Exam limited by body habitus. Decreased mineralization. No fracture or dislocation. No lytic or blastic lesion. Degenerative change in the lumbar spine. Mild bilateral hip osteoarthritis. No erosion or periosteal change. Soft tissues within normal limits. IMPRESSION: No acute osseous finding in the pelvis. Reviewed, dictated and finalized at location K. STATION COLLECTOR Quality VTE Prophylaxis VTE prophylaxis: mechanical ordered and pharmacologic ordered
[2023-07-21 16:49] LABS: Glucose Point of Care 126 mg/dl (65-105)
[2023-07-21] MEDS: busPIRone HCL 10 MG TABLET 20 MG PO (17:06)
[2023-07-21] MEDS: GABAPENTIN 300 MG CAPSULE 600 MG PO (17:06)
[2023-07-21] MEDS: METOPROLOL TARTRATE 25 MG TABLET PO (20:16)
[2023-07-22] VITALS: BP 140/83; PULSE 81; RESP 20; TEMP 36.6; O2SAT 94
[2023-07-22 04:00] VITALS: BP 130/85; PULSE 81; RESP 20; TEMP 35.9; O2SAT 93
[2023-07-22 06:00] LABS: Basophils Percent Auto 0.6 % (0.2-1.2); Eosinophils Absolute Auto 0.3 K/mm3 (0-0.3); Eosinophils Percent Auto 3.7 % (0-4.4); Hematocrit 43.5 % (37.0-47.0); Hemoglobin 14.4 g/dL (12.0-15.0); Immature Granulocyte Absolute 0.04 K/mm3 (0.00-0.031); Immature Granulocyte Percent A 0.6 % (0-0.5); Lymphocytes Absolute Auto 1.72 K/mm3 (0.9-3.2); Lymphocytes Percent Auto 24.4 % (18.3-44.2); Mean Corpuscular HGB Conc 33.1 g/dl (32-36); Mean Corpuscular Hemoglobin 33.5 pg (26-34); Mean Corpuscular Volume 101.2 fl (80-100); Mean Platelet Volume 8.8 fl (7.4-10.4); Monocytes Absolute Auto 0.7 K/mm3 (0.1-0.6); Monocytes Percent Auto 9.8 % (2.6-8.5); Neutrophils Absolute Auto 4.3 K/mm3 (1.3-6.7); Neutrophils Percent Auto 60.9 % (45.5-73.1); Platelet Count Result 173 k/mm3 (150-375); Red Cell Distribution Width 12.8 % (11.5-14.5)
[2023-07-22 06:13] LABS: Alanine Aminotransferase 24 U/L (6-35); Albumin Level 3.4 g/dL (3.5-5.1); Alkaline Phosphatase 116 U/L (38-126); Anion Gap 10 mmol/L (8-16); Aspartate Amino Transferase 28 U/L (14-36); Bilirubin,Total 0.4 mg/dL (0.2-1.3); Blood Urea Nitrogen 16 mg/dL (7-17); Calcium 8.4 mg/dL (8.4-10.2); Carbon Dioxide 22 mmol/L (22-30); Chloride 103 mmol/L (98-107); Estimated CRCL calculation 75 ml/min; Estimated Glomerular Filt Rate 52; Glucose 144 mg/dL (65-110); Magnesium 1.9 mg/dL (1.6-2.3); Phosphorus 4.1 mg/dL (2.5-4.5); Potassium 4.3 mmol/L (3.4-5.0); Sodium 135 mmol/L (137-145)
[2023-07-22 07:33] LABS: Hemoglobin A1C 6.8 % (<5.7)
[2023-07-22 08:07] LABS: Glucose Point of Care 133 mg/dl (65-105)
[2023-07-22 09:06] LABS: Glucose Point of Care 162 mg/dl (65-105)
--- NOTE | 2023-07-22 09:37 | P.DS_ITS ---
DS: Admitting Diagnosis Discharge Date 07/22/2023 Admitting Diagnosis Failure to Thrive Influenza A Generalized Weakness Acute Kidney Injury Bipolar disorder COPD DM2 HTN DS: Discharge Diagnosis Discharge Diagnosis (1) Influenza A: Code(s): J10.1 - Influenza due to other identified influenza virus with other respiratory manifestations Status: Acute Assessment and Plan: * Pt with normal oxygen saturations on room air and maintaining. * She continues to be weak, however, she is ambulatory w/walker to the bathroom with SBA. * She does not appear to be in respiratory failure and is now stable. (2) Weakness: Code(s): R53.1 - Weakness Status: Acute Assessment and Plan: * Pt. had PT and OT eval. They recommend continued therapy at home. has been consulted * Pt. has walking aides available at home and a critical care educator named Joel. * No need for further hospitalization as she is stable and can further recover at home. (3) At high risk for falls: Code(s): Z91.81 - History of falling Status: Acute Assessment and Plan: * Patient has had 3 falls in the past week. She has abrasion to right knee from last fall * Right knee x-ray negative for fracture or dislocation * See above recommendations for #2 (4) Bipolar disorder, unspecified: Code(s): F31.9 - Bipolar disorder, unspecified Status: Chronic Assessment and Plan: * Continue home medications on discharge. (5) COPD (chronic obstructive pulmonary disease): Code(s): J44.9 - Chronic obstructive pulmonary disease, unspecified Status: Chronic Assessment and Plan: * Currently on room air and maintaining sats. * Stable for discharge. (6) Diabetes: Code(s): E11.9 - Type 2 diabetes mellitus without complications Status: Chronic Assessment and Plan: * Continue home glycemic checking and management regimen. (7) Hypertension: Code(s): I10 - Essential (primary) hypertension Status: Chronic Assessment and Plan: * Continue home medications. (8) LUCA (acute kidney injury): Code(s): N17.9 - Acute kidney failure, unspecified Status: Resolved Assessment and Plan: * Resolved with CR/BUN today of 1.10/16 * Pt is encouraged to continue hydration at home. (9) Intertrigo: Code(s): L30.4 - Erythema intertrigo Status: Acute Assessment and Plan: * Continue Miconazole powder to skin folds. (10) Anxiety: Code(s): F41.9 - Anxiety disorder, unspecified Status: Chronic Assessment and Plan: * Continue home medications. DS: Summary Hospital Course Reason for hospitalization: Self care deficit and LUCA Hospital Course: This 52 year old female pt with PMH significant of COPD, DM, HTN, Nicotine abuse and Bipolar disorder was admitted to the hospital on 07/20/23 after sustaining a fall at home. She was found in the ER to have no acute injuries or trauma findings related to her fall, but it was noted that she was weak. She was found to be living in poor living conditions and had very poor hygiene. She lives at home and had a caregiver, Joel, who helps her do what she needs done. In ER it was found that she was positive for Influenza A and that she had a mild LUCA. She was admitted to the hospital for further evaluation and management. While here she has had a favorable hospitalization without any setbacks. She still feels weak, but this is to be expected giving that she has Influenza. She has been weaned from supplemental oxygen, and she has otherwise stable VS and labs. She was evaluated by PT services and she was deemed to be at her baseline functioning level overall. Her mild LUCA is resolved and her remaining labs and overall condition are stable. She has HH ordered through [facility] . She is stable for discharge at this time and is agreeable to the plan of care. All questions were answered to her satisfaction prior to discharge. Time spent discussing smoking cessation with patient: 3 to 10 minutes Status at Discharge Cognitive/behavioral status at discharge: Alert and oriented x4 Functional status at discharge: uses cane/walker Overall status at discharge: patient is back to baseline Time Spent with Patient Time attestation: Total time spent providing and/or coordinating discharge services: Time spent: Greater than 30 minutes Specific discharge activities: Discharge instructions, physical evaluation, answering questions Exam Narrative: General: In no acute distress, well nourished Head: atraumatic, no encephalopathy Eyes: EOMI, PERRLA, sclera clear ENT:tacky mucous membranes, nasal passages clear Neck: supple, no JVD, no adenopathy, trachea midline Cardiac: Normal S1 and S2. No murmur, gallops or friction rubs, peripheral pulses intact. Respiratory: Lungs clear to auscultation, no adventitious lung sounds, currently on 2L NC Gastrointestinal: soft, large, non-distended, non-tender, normoactive bowel sounds. : voiding without difficulty. Extremities: moves all extremities well, no edema, good ROM, strength 5/5 Skin: abrasion to left knee, erythema and yeast in folds. Neuro: Alert and oriented x4, cranial nerves intact, no neuro deficits. Psych: normal mood, normal affect, interactive DS: Data Data Completed and Pending Completed studies during hospitalization: ITS Impressions Chest X-Ray 07/20/23 19:17 IMPRESSION: No acute cardiopulmonary process. Knee X-Ray 07/20/23 21:53 IMPRESSION: No acute osseous finding in the right knee. Pelvis X-Ray 07/20/23 21:54 IMPRESSION: No acute osseous finding in the pelvis. Labs on day of discharge: Labs from last 24 hours 07/22/23 07/22/23 07/21/23 08:03 05:24 20:06 WBC 7.0 RBC 4.30 Hgb 14.4 Hct 43.5 MCV 101.2 H MCH 33.5 MCHC 33.1 RDW 12.8 Plt Count 173 MPV 8.8 Immature Gran % (Auto) 0.6 H Neut % (Auto) 60.9 Lymph % (Auto) 24.4 [place] % (Auto) 9.8 H Eos % (Auto) 3.7 Baso % (Auto) 0.6 Lymph # (Auto) 1.72 [place] # (Auto) 0.7 H Eos # (Auto) 0.3 Baso # (Auto) 0.0 Abs Immat Gran (auto) 0.04 H Absolute Neuts (auto) 4.3 Absolute Nucleated RBC 0.0 Nucleated RBC % 0.0 Sodium 135 L Potassium 4.3 Chloride 103 Carbon Dioxide 22 Anion Gap 10 BUN 16 Creatinine 1.10 H Estim Creat Clear Calc 75 Estimated GFR 52 L Glucose 144 H POC Capillary Glucose 133 H 162 H Hemoglobin A1c 6.8 H Calcium 8.4 Phosphorus 4.1 Magnesium 1.9 Total Bilirubin 0.4 AST 28 ALT 24 Alkaline Phosphatase 116 Total Protein 7.0 Albumin 3.4 L 07/21/23 16:44 WBC RBC Hgb Hct MCV MCH MCHC RDW Plt Count MPV Immature Gran % (Auto) Neut % (Auto) Lymph % (Auto) [place] % (Auto) Eos % (Auto) Baso % (Auto) Lymph # (Auto) [place] # (Auto) Eos # (Auto) Baso # (Auto) Abs Immat Gran (auto) Absolute Neuts (auto) Absolute Nucleated RBC Nucleated RBC % Sodium Potassium Chloride Carbon Dioxide Anion Gap BUN Creatinine Estim Creat Clear Calc Estimated GFR Glucose POC Capillary Glucose 126 H Hemoglobin A1c Calcium Phosphorus Magnesium Total Bilirubin AST ALT Alkaline Phosphatase Total Protein Albumin Preliminary micro results at discharge 07/20/23 20:10 Blood Culture - Preliminary Blood 07/20/23 20:11 Blood Culture - Preliminary Blood Discharge Plan Discharge Attending physician on discharge: Mirella Godfrey Discharging Clinician: Mirella Godfrey Anticipated Discharge Date/Time: 07/22/23 09:53 Patient Disposition: Home Health Service Activity: as tolerated Diet: heart healthy and diabetic Wound Care Instructions: other - see discharge instructions Discharge Instructions: Kathleen, thank you for allowing us to care for you in the hospital. You were admitted for having Influenza and weakness. While here you have had interval improvement and you are now stable for discharge to home. We have sent an order to [facility] for continued PT services at home and for a nurse to come to the home to check on you. It is very important that you continue to increase your fluids, get plenty of rest and continue to check your blood sugar. You will be weak and have an intermittent cough from having Influenza for a few weeks and this is normal. If you become too short of breath, it will be very important that you go to the ER immediately. Otherwise, please understand that you are contagious and that you will need to avoid any unnecessary contact due to that contagion to others. Please follow up with your PCP this coming week. For your reddened areas in the skin folds, you are going to be continued on Miconazole. Please apply this every 12 hours and attempt to keep areas clean and dry. Stand Alone Forms: General Discharge Information Follow-up/Referrals: Neftali,MD Maykel [Primary Care Provider] - Call for Appointment (Would like you to be evaluated in the next week.) Discharge Medications: New miconazole nitrate [Antifungal (miconazole)] 2 % powder 1 applic topical BID Qty: 85 0RF Tussin DM Cough and Chest 5-100 mg/5 mL liquid 10 ml PO Q4-8H PRN (Reason: cough) Qty: 237 0RF Continued cyclobenzaprine 10 mg Tablet 10 mg PO Q4-8H PRN (Reason: muscle spasms) gabapentin 600 mg Tablet 600 mg PO TID atorvastatin 10 mg Tablet 10 mg PO DAILY glimepiride 1 mg Tablet 1 mg PO DAILY buspirone 10 mg Tablet 20 mg PO TID hydroxyzine HCl 10 mg Tablet 10 mg PO DAILY lamotrigine 100 mg Tablet 100 mg PO DAILY Vraylar 1.5 mg Capsule 1.5 mg PO DAILY [place] 6 mg Tablet 6 mg PO BID [place] 9 mg Tablet 9 mg PO BID metoprolol tartrate 25 mg PO BID bupropion HCl 150 mg Tablet Extended Release 24 Hr 150 mg PO DAILY Date of admission: 07/21/23 16:53 Primary Care Provider: Maykel Rodriguez Admitting Provider: Eamon Moses Attending physician on admission: Eamon Moses Condition: Stable Quality VTE Prophylaxis VTE prophylaxis: pharmacologic ordered (Pt. received Lovenox as an inpatient.) [facility] Discharge Hospital Discharge: 01408 Hosp D/C >30 Min
[2023-07-22 09:41] VITALS: PULSE 90
[2023-07-22] MEDS: lamoTRIgine 100 MG TABLET PO (09:41)
[2023-07-22] MEDS: busPIRone HCL 10 MG TABLET 20 MG PO ×2 (09:41→12:23)
[2023-07-22] MEDS: buPROPion HCL XL (24 HR) 150 MG TABCR PO (09:41)
[2023-07-22] MEDS: METOPROLOL TARTRATE 25 MG TABLET PO (09:41)
[2023-07-22] MEDS: GABAPENTIN 300 MG CAPSULE 600 MG PO ×2 (09:41→12:23)
[2023-07-22] MEDS: ATORVASTATIN 10 MG TABLET PO (09:42)
[2023-07-22] MEDS: hydrOXYzine HCL 10 MG TABLET PO (09:42)
[2023-07-22] MEDS: ENOXAPARIN 40 MG/0.4 ML SYRINGE SUB-Q (09:42)
[2023-07-22] MEDS: SODIUM CHLORIDE 0.9% IV 1,000 ML 100 ML IV CONT (09:42)
[2023-07-22 10:00] VITALS: BP 143/78; PULSE 90; RESP 24; TEMP 36.6; O2SAT 98
[2023-07-22 11:30] LABS: Glucose Point of Care 184 mg/dl (65-105)
== END 2023-07-22 14:35 | disposition home or self-care (01) | DRG 194 ==
LOC: ANHED 23:16 → ANH2MED 23:39
PROVIDERS: Emergency Medicine; Nurse Practitioner Acute Care; Admitting Provider Family Medicine; Emergency Provider Emergency Medicine; PCP Internal Medicine; Visit Provider Nurse Practitioner Adult Health
DX: J10.1 Influenza due to other identified influenza virus with other respiratory manifestations (principal); N17.9 Acute kidney failure, unspecified; Z68.43 Body mass index [BMI] 50.0-59.9, adult; E86.0 Dehydration; S80.211A Abrasion, right knee, initial encounter; W06.XXXA Fall from bed, initial encounter; F31.9 Bipolar disorder, unspecified; E66.01 Morbid (severe) obesity due to excess calories; E11.620 Type 2 diabetes mellitus with diabetic dermatitis; F41.9 Anxiety disorder, unspecified; I10 Essential (primary) hypertension; I45.10 Unspecified right bundle-branch block; J44.9 Chronic obstructive pulmonary disease, unspecified; L30.4 Erythema intertrigo; M17.11 Unilateral primary osteoarthritis, right knee; M16.0 Bilateral primary osteoarthritis of hip; R62.7 Adult failure to thrive; Z23 Encounter for immunization; Z79.84 Long term (current) use of oral hypoglycemic drugs; Z87.891 Personal history of nicotine dependence; Z20.822 Contact with and (suspected) exposure to COVID-19; Z91.81 History of falling
CPT/HCPCS: 36415; 71045; 72170; 73562; 80053; 81001; 82948; 83036; 83605; 83690; 83735; 83880; 84100; 84443; 84484; 85025; 85610; 85730; 87040; 87637; 90471; 90686; 93005; 94640; 96372; 96375; 97162; 97165; 99285; A9270; G0008; G0378; J1650; J7030; J7050

== ENCOUNTER 2024-10-08 19:41 | Emergency (ER) | payer MEDICARE, SELFPAY ==
--- NOTE | ~2024-10-08 | CT_ITS ---
History: Fall PROCEDURE: CT cervical spine without intravenous contrast. COMPARISON: None TECHNIQUE: Multiple contiguous axial images of the cervical spine were performed without the administration of i ntravenous contrast. DLP: 644 mGy-cm FINDINGS: Straightening and slight reversal of the normal curvature of the cervical spine is identified, likely muscular in origin. No acute fractures are present. The bilateral lung apices are unremarkable. No soft tissue abnormality is present. The airway is patent. Impression: Straightening and slight reversal of the normal curvature of the cervical spine, likely muscular in o rigin. No acute fracture. Reviewed, dictated and finalized at location A. Impression: Straightening and slight reversal of the normal curvature of the cervical spine , likely muscular in origin. No acute fracture.
--- NOTE | ~2024-10-08 | CT_ITS ---
History: Fall PROCEDURE: CT head without contrast. COMPARISON: None TECHNIQUE: Axial imaging of the head performed from the skull base to the vertex without IV contrast. Sagittal a nd coronal reformations obtained. DLP: 757 mGy-cm FINDINGS: The ventricles are normal in size, shape and position. There is no mass, mass effect or midline shift. There is no abnormal extra-axial fluid collection or intracranial hemorrhage. Mucoperiosteal thickening within the bilateral maxillary and ethmoid sinuses. Mucoperiosteal thickening within the right sphenoid sinus. Remaining paranasal sinuses are unremarkab le. The mastoid air cells are well aerated. No acute displaced fractures within the overlying cranium. Impression: No acute intracranial hemorrhage or suspicious mass effect. Reviewed, dictated and finalized at location A. Impression: No acute intracranial hemorrhage or suspicious mass effect.
--- NOTE | ~2024-10-08 | XR_ITS ---
HISTORY: knee pain s/p fall COMPARISON: 07/20/2023 TECHNIQUE: 3 views of the right knee were performed FINDINGS: No acute or subacute fracture, erosion, lytic or sclerotic lesion. Loss of valgus alignment. Near complete obliteration of both the medial and lateral tibiofemoral joint space as well as the pat ellofemoral joint space. Small suprapatellar joint effusion is identified. The infrapatellar joint space is clear. IMPRESSION: Stable evaluation of the right knee demonstrating severe degenerative disease without ac jeancarlos fracture. Reviewed, dictated and finalized at location A. IMPRESSION: Stable evaluation of the right knee demonstrating severe degenerat augei disease without acute fracture.
--- NOTE | ~2024-10-08 | XR_ITS ---
HISTORY: knee pain s/p fall COMPARISON: 03/11/2019 TECHNIQUE: 3 views of the left knee were performed FINDINGS: No acute or subacute fracture, erosion, lytic or sclerotic lesion. Near complete obliteration of both the medial and lateral tibiofemoral joint space is identified. Varus angulation is redemonstrated. No suprapatellar joint effusion is identified. The infrapatellar joint space is clear. IMPRESSION: Redemonstration of severe tricompartmental osteoarthritis, as detailed above. Reviewed, dictated and finalized at location A. IMPRESSION: Redemonstration of severe tricompartmental osteoarthritis, as luis enrique wood above.
[2024-10-08 19:45] VITALS: BP 133/92; PULSE 109; RESP 19; TEMP 36.9; O2SAT 100
--- OUTSIDE RECORDS SUMMARY | 2024-10-08 20:25 | XMS_ITS | Encounter Summary ---
Author Organization [facility] Address [address] [place] [address] Care Team Providers Care Mixer Driver Name Role Phone Massiel Munoz MD Primary Care Provider + Encounter Details Date Type Department Care Team (Late st Contact Info) Description 03/01/1999 Outpatient Historical [address] [phone] Mandy Aguilar MD NO ADDRESS ON FILE Social History Tobacco Use Types Packs/Day Years Used Date Smoking Tobacco: Never Assessed Comments Unknown Sex and Gender Information Value Date Recorded Sex Assigned at Not on file Legal Sex Female 4:00 AM DIRECTOR OF COUNSELING Gender Identity Not on file Sexual Orientation Not on file documented as of this encounter Plan of Treatment Not on file documented as of this encounter Visit Diagnoses Not on filedocumented in this encounter Care Teams Mixer Driver Relationship Specialty Start Date End Date Massiel Munoz MD [address] [phone] PCP - General 09/30/00 documented as of this encounter
--- OUTSIDE RECORDS SUMMARY | 2024-10-08 20:25 | XMS_ITS | Encounter Summary ---
Author Organization [facility] Address [address] [place] [address] Care Team Providers Care Ragman Name Role Phone Massiel Munoz MD Primary Care Provider + Encounter Details Date Type Department Care Team (Late st Contact Info) Description 05/07/[address] 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
--- OUTSIDE RECORDS SUMMARY | 2024-10-08 20:25 | XMS_ITS | Data Portability ---
Author Organization [place] [facility], Main Office Address [address] [place] [address] Assessment Encounter Date Assessment Date Assessment LastModified by Organization Details LastModified Time 03/10/2023 03/10/2023 Blood work x-ray left knee importance of getting weight off has been discussed we talked about ways to do that does not want to pursue any of those right now will x-ray the knee see me back in 3 months continue current therapy [email or web address] Not available 03/10/2023 15:37:43 07/04/2023 07/04/2023 I have reconcile d the patient's medications post their discharge from inpatient facility. 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 split sleep study 05/02/14 AHI = 27 [facility] diagnostic sleep study 04/16/17 AHI = 25, PLMI = 10 [facility] diagnostic sleep study 06/12/21 AI = 2 Ferritin 04/16/21 73 ng/mL Hgb 04/16/21 16.5 gm% Hct 04/16/21 48.5% BUN 04/16/21 27 mg% Creatinine 04/16/21 2.07 mg% PFT 04/17/22 nl FEV1/FVC, FEV1 2.23 L (86%), TLC 3.27 L (66%), DLCO 52%, DLCO/VA 125% Lab data 04/17/22 multiple environmental allergies, high IgE Chest 2 views 04/17/22 cardiomegaly Cough/Dyspnea workup will be done as follows: Methacholine challenge testing 2-D echocardiography Advised to continue not to smoke. Minimize albuterol nebs use. Continue albuterol HFA as needed. The patient does not know how to accurately administer the inhaler. Today, the patient was shown how to take this medication. The proper technique for delivering this medication was instructed. The patient expressed a clear understanding and demonstrated back how to use this medication. Without the proper technique, the patient will not reap the benefits of the treatment as the contents of the inhaler will not reach the lower airways as intended to be. Adherence to therapy is advocated. Nonadherence may lead to treatment failure, further progression of the condition, and other complications. Hospitals admissions are often the result of individuals not taking prescription medications accurately. Alternatively, greater adherence to medication regimens have shown to lower rates of hospitalization and decrease total medical costs in patients with chronic medical conditions. Non-pharmacologic therapy options for periodic limb movement disorder include avoidance of aggravating drugs and substances, mental alerting activities, short daily hemodialysis for patients in renal failure, exercise, leg massage, stretching calf muscles, use of a weighted blanket and applied heat. Her Vitamin E, Vitamin B12, RBC folate, Iron, TIBC, Ferritin, ESR, Magnesium are within normal limits. Patient will cut down on caffeine intake. Her PCP is monitoring her CKD. General information on sleep disorder breathing and evaluation of sleep disordered breathing were covered. We discussed with the patient the impact of weight on: Sleep disordered breathing Hypertension Hyperlipidemia DM [place] Incisional hernia Urge urinary incontinence Venous stasis Knee osteoarthritis Left plantar fasciitis Split night sleep study ordered. Educated the patient on sleep hygiene measures. Relaxing rituals to rest easy, understanding foods with positive and negative impact on sleep, creating a peaceful sleep environment, timing of exercise, using herbal sleep aids, and practicing sleep-friendly meditation were covered. To determine how much sleep is needed, the patient will assess where (s)he falls on the spectrum, examine what lifestyle factors such as work schedules and stress are affecting the quality and quantity of sleep. In general, adults need 7-9 hours of sleep. Educated the patient regarding foods that promote sleep. These include but are not limited to cherries, bananas, toast, oatmeal, and warm milk. Educated the patient regarding foods and drinks to avoid before bedtime. These include but are not limited to aged cheese, chocolate, spicy foods, tomato-based sauces, soy, ginseng tea and processed meat. Advocated influenza vaccination annually and pneumonia vaccination IRON. Advocated weight loss through diet and exercise. Patient's ideal body weight according to height and gender is up to 125 lbs. Encouraged patient to adjust caloric intake to maintain/achieve ideal body weight, emphasizing on fruits, vegetables, whole grains, and fat-free or low-fat products. These include lean meats, poultry, fish, beans, eggs, and nuts and foods that are low in saturated fats, trans-fats, cholesterol, salt (sodium), and glycemic index. Stressed the importance of regular exercise up to the patient's capacity limits. In this case, we recommend regular (4 x a week or more) walking or other light activity. Patient to monitor BP daily and bring records to PCP for further management. 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 split sleep study 05/02/14 AHI = 27 [facility] diagnostic sleep study 04/16/17 AHI = 25, PLMI = 10 [facility] diagnostic sleep study 06/12/21 AI = 2 Ferritin 04/16/21 73 ng/mL Hgb 04/16/21 16.5 gm% Hct 04/16/21 48.5% BUN 04/16/21 27 mg% Creatinine 04/16/21 2.07 mg% PFT 04/17/22 nl FEV1/FVC, FEV1 2.23 L (86%), TLC 3.27 L (66%), DLCO 52%, DLCO/VA 125% Lab data 04/17/22 multiple environmental allergies, high IgE Chest 2 views 04/17/22 cardiomegaly 2-D echocardiogram 06/24/24 atrial fibrillation, mild LVH Cough/Dyspnea workup will be done as follows: Methacholine challenge testing Referral to cardiology IRON as her 2-D echocardiogram shows that she is in atrial fibrillation. She will see Dr. Shad Paz at 10:30 am today. Advised to continue not to smoke. Discontinue albuterol nebs. Continue albuterol HFA as needed. The patient does not know how to accurately administer the inhaler. Today, the patient was shown how to take this medication. The proper technique for delivering this medication was instructed. The patient expressed a clear understanding and demonstrated back how to use this medication. Without the proper technique, the patient will not reap the benefits of the treatment as the contents of the inhaler will not reach the lower airways as intended to be. Adherence to therapy is advocated. Nonadherence may lead to treatment failure, further progression of the condition, and other complications. Hospitals admissions are often the result of individuals not taking prescription medications accurately. Alternatively, greater adherence to medication regimens have shown to lower rates of hospitalization and decrease total medical costs in patients with chronic medical conditions. Non-pharmacologic therapy options for periodic limb movement disorder include avoidance of aggravating drugs and substances, mental alerting activities, short daily hemodialysis for patients in renal failure, exercise, leg massage, stretching calf muscles, use of a weighted blanket and applied heat. Her Vitamin E, Vitamin B12, RBC folate, Iron, TIBC, Ferritin, ESR, Magnesium are within normal limits. Patient will cut down on caffeine intake. Her PCP is monitoring her CKD. General information on sleep disorder breathing and evaluation of sleep disordered breathing were covered. We discussed with the patient the impact of weight on: Sleep disordered breathing Hypertension Hyperlipidemia DM [place] Incisional hernia Urge urinary incontinence Venous stasis Knee osteoarthritis Left plantar fasciitis Split night sleep study ordered. Educated the patient on sleep hygiene measures. Relaxing rituals to rest easy, understanding foods with positive and negative impact on sleep, creating a peaceful sleep environment, timing of exercise, using herbal sleep aids, and practicing sleep-friendly meditation were covered. To determine how much sleep is needed, the patient will assess where (s)he falls on the spectrum, examine what lifestyle factors such as work schedules and stress are affecting the quality and quantity of sleep. In general, adults need 7-9 hours of sleep. Educated the patient regarding foods that promote sleep. These include but are not limited to cherries, bananas, toast, oatmeal, and warm milk. Educated the patient regarding foods and drinks to avoid before bedtime. These include but are not limited to aged cheese, chocolate, spicy foods, tomato-based sauces, soy, ginseng tea and processed meat. Advocated influenza vaccination annually and pneumonia vaccination IRON. Advocated weight loss through diet and exercise. Patient's ideal body weight according to height and gender is up to 125 lbs. Encouraged patient to adjust caloric intake to maintain/achieve ideal body weight, emphasizing on fruits, vegetables, whole grains, and fat-free or low-fat products. These include lean meats, poultry, fish, beans, eggs, and nuts and foods that are low in saturated fats, trans-fats, cholesterol, salt (sodium), and glycemic index. Stressed the importance of regular exercise up to the patient's capacity limits. In this case, we recommend regular (4 x a week or more) walking or other light activity. Patient to monitor BP daily and bring records to PCP for further management. 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 split sleep study 05/02/14 AHI = 27 [facility] diagnostic sleep study 04/16/17 AHI = 25, PLMI = 10 [facility] diagnostic sleep study 06/12/21 AI = 2 [facility] split night sleep study 08/18/24 sleep onset = 3.5 minutes, REM onset = 79.5 minutes, AHI = 18, REM AHI = 47, ResMed small AirFit F30 full face mask @ 10 cmH2O, PLMI = 0.0 Ferritin 04/16/21 73 ng/mL Hgb 04/16/21 16.5 gm% Hct 04/16/21 48.5% BUN 04/16/21 27 mg% Creatinine 04/16/21 2.07 mg% Lab data 04/17/22 multiple environmental allergies, high IgE PFT 04/17/22 nl FEV1/FVC, FEV1 2.23 L (86%), TLC 3.27 L (66%), DLCO 52%, DLCO/VA 125% Methacholine challenge 08/18/24 (+) methacholine challenge at level 5 2-D echocardiogram 06/24/24 atrial fibrillation, mild LVH Dr. Shad Cordoba note 06/30/24 EKG revealed NSR General information on bronchial asthma was covered. Educational video was shown. Peak flow meter usage instructed. Patient's personal best peak flow today is 330 L/min. Patient will monitor peak flow daily at a set time and again when symptoms of chest tightness, cough, dyspnea or wheezing occur. Patient will bring peak flow record to subsequent visits. The color of a traffic light will guide the patient's use of asthma medications: (1) Green means Go Zone. Peak flow: above 80% of personal best. Symptoms: Breathing is good, no cough or wheeze present, patient sleeps through the night and can work and play. Plan: Patient will continue the use of preventative medicine. (2) Yellow means Caution Zone. Peak flow: between 50-80% of personal best. Symptoms: Presence of first signs of a cold, exposure to known trigger, mild wheeze, tight chest and coughing especially night. Plan: Patient will add quick-relief medicine to preventative medicine. (3) Red means Danger Zone. Peak flow: below 50% of personal best. Symptoms: Asthma is getting worse quickly and medicine is not helping, breathing is hard and fast, nose opens widely when breathing, ribs showing when breathing, and patient cannot speak in full sentences. Plan: Patient will get help from a physician immediately. Advised to continue not to smoke. Start Flovent HFA 44 mcg 2 puffs BID. Gargle after use. Continue albuterol HFA as needed. The patient does not know how to accurately administer the inhalers. Today, the patient was shown how to take these medications. The proper technique for delivering these medications was instructed. The patient expressed a clear understanding and demonstrated back how to use these medications. Without the proper technique, the patient will not reap the benefits of these medications as the contents will not reach the lower airways as intended to be. Adherence to therapy is advocated. Nonadherence may lead to treatment failure, further progression of the condition, and other complications. Hospitals admissions are often the result of individuals not taking prescription medications accurately. Alternatively, greater adherence to medication regimens have shown to lower rates of hospitalization and decrease total medical costs in patients with chronic medical conditions. Non-pharmacologic therapy options for periodic limb movement disorder include avoidance of aggravating drugs and substances, mental alerting activities, short daily hemodialysis for patients in renal failure, exercise, leg massage, stretching calf muscles, use of a weighted blanket and applied heat. Her Vitamin E, Vitamin B12, RBC folate, Iron, TIBC, Ferritin, ESR, Magnesium are within normal limits. Patient will cut down on caffeine intake. Her PCP is monitoring her CKD. Educated the patient on problems and solutions associated with positive airway pressure (PAP) use. Difficulty tolerating pressure, mask leaks, intolerance of interface, nasal congestion, claustrophobic response, dry mouth, and unintentional mask removal during sleep were covered. Dry mouth is a normal occurrence for people who just start out on PAP therapy because they are not used to air blowing in to the throat to hold open. Dry mouth is exacerbated for people who wear nasal PAP mask and whose jaw drops open during sleep. Not only does this create a much less efficient therapy because of leakage, it also causes dry mouth. There are a couple solutions to help prevent this type of problem. A simple solution would be to wear a chinstrap which essentially holds the jaw in place. A second solution would be a switch to a full face mask which covers both the nose and mouth. Although this is another easy solution, using a full face mask for some could seem claustrophobic or confining. There is no silver bullet solution as no single mask is right for everybody. Sometimes it takes a bit of experimentation to find a PAP mask which best meets the patient's needs as well as fits comfortably. Another tactic is to use a humidifier on your PAP machine. Most new PAP machines have integrated humidifiers. Humidification is blackburn when dealing with symptoms of dry mouth because the humidifier can supply both warm and room temperate air. Even a small amount of humidity in the airflow will help nasal passages to stay hydrated. If a person is using both a full face mask and a PAP machine with a heated humidifier and is still experiencing dry mouth, an ill-fitted PAP mask might be causing the problem. Leakage can be caused by a mask that is to large or small, the wrong style mask, the cushion is degraded or simply because the mask's straps aren't adjusted correctly. If leakage occurs, dry air from the room can leak in while humidification escapes. The result is reduced humidification within the circuit and resulting in dry throat and mouth. Finally, beyond factors involving the PAP machine and mask, dry mouth can also be caused or worsened by dehydration. The general recommendation to during eight 8 oz. glasses of water a day might be too little for many people. When people drink large amounts of coffee or other caffeine beverages, or sweat a lot during the day, making sure to rehydrate is an important part of PAP therapy. ResMed Air Sense 11 auto set unit with heated humidifier, supplies and ResMed small AirFit F30 full face mask @ 10 cmH2O ordered. Further titration will be based on clinical response. Provided the patient with a list of local home care stores where positive airway pressure (PAP) units, accoutrement, and services are available. Home care store selection is based on patient's insurance carrier. Patient will setup an appointment with [facility] for supplies and pressure adjustments. A major predictor of success with use of PAP is follow-up with both the respiratory supplier and the treating physician. The respiratory supplier optimally will follow-up within two weeks after starting use while the treating physician optimally will follow-up within 90 days after starting therapy to assess adherence and effectiveness of treatment. The download results can show the treating physician information about adherence to treatment, residual AHI while on treatment and presence of large mask leakage. This information is especially helpful if the patient has residual sleepiness despite treatment. General information on sleep disorder breathing and evaluation of sleep disordered breathing were covered. We discussed with the patient the impact of weight on: Sleep disordered breathing Hypertension Hyperlipidemia DM [place] Incisional hernia Urge urinary incontinence Venous stasis Knee osteoarthritis Left plantar fasciitis Educated the patient on sleep hygiene measures. Relaxing rituals to rest easy, understanding foods with positive and negative impact on sleep, creating a peaceful sleep environment, timing of exercise, using herbal sleep aids, and practicing sleep-friendly meditation were covered. To determine how much sleep is needed, the patient will assess where (s)he falls on the spectrum, examine what lifestyle factors such as work schedules and stress are affecting the quality and quantity of sleep. In general, adults need 7-9 hours of sleep. Educated the patient regarding foods that promote sleep. These include but are not limited to cherries, bananas, toast, oatmeal, and warm milk. Educated the patient regarding foods and drinks to avoid before bedtime. These include but are not limited to aged cheese, chocolate, spicy foods, tomato-based sauces, soy, ginseng tea and processed meat. Advocated influenza vaccination annually and pneumonia vaccination IRON. Advocated weight loss through diet and exercise. Patient's ideal body weight according to height and gender is up to 125 lbs. Encouraged patient to adjust caloric intake to maintain/achieve ideal body weight, emphasizing on fruits, vegetables, whole grains, and fat-free or low-fat products. These include lean meats, poultry, fish, beans, eggs, and nuts and foods that are low in saturated fats, trans-fats, cholesterol, salt (sodium), and glycemic index. Stressed the importance of regular exercise up to the patient's capacity limits. In this case, we recommend regular (4 x a week or more) walking or other light activity. Patient to monitor BP daily and bring records to PCP for further management. Follow-up: 3 months, October 2024 Spent 60 minutes: 1. preparing to see the patient (eg, review of tests), 2. obtaining and/or reviewing separately obtained history, 3. performing a medically appropriate examination and evaluation, 4. counseling and educating the patient, 5. ordering medications and tests, 6. documenting clinical information in the electronic health record, 7. independently interpreting results, and 8. communicating results to the patient. Not available 08/23/2024 11:31:49 Plan of Treatment Reminders Order Date Submit Date Provider Last Modified By Organization Details Last Modified Time Details Appointments Any 2024 09:30A Shanda Ortiz MD Not available Not available Not available Lab glycohemo globin, total, blood 2022 023 SANDRINE [facility] (Lab), [address] [place], [address], 07/04/2023 13:19:43 CMP, serum or plasma [email or web address] (Lab), [address] [place], [address], 07/04/2023 13:02:32 lipid panel, serum [address] (Lab), [address] [place], [address], 07/04/2023 13:02:32 CBC w/ auto diff [address] (Lab), [address] [place], [address], 07/04/2023 13:02:32 T3, free, serum or plasma [address] (Lab), [address] [place], [address], 07/04/2023 13:02:32 T4, free, serum [address] (Lab), [address] [place], [address], 07/04/2023 13:02:32 TSH, serum or plasma 2022 023 [facility] (Lab), [address] [place], [address], 07/04/2023 13:23:28 BNP (B-type natriuret ic peptide), blood 2022 023 [facility] (Lab), [address] [place], [address], 07/04/2023 13:09:42 HbA1c (hemoglob in A1c), blood 2022 023 [facility] (Lab), [address] [place], [address], 03/18/2023 16:43:35 CMP, serum or plasma 2022 023 [facility] (Lab), [address] [place], [address], 03/10/2023 18:54:46 lipid panel, serum 2022 023 [facility] (Lab), [address] [place], [address], 03/10/2023 18:54:54 CBC w/ auto diff 2022 023 [facility] (Lab), [address] [place], [address], 03/10/2023 18:37:48 Referral cardiolog ist referral - Please call patient to schedule. 2023 024 SANDRINE Paz MD, [address] [place], [address], 08/23/2024 13:42:43 Procedures None recorded. Surgeries None recorded. Imaging polysomno gram, split night - Please call patient to schedule. [address] [facility], [address] [place], [address], 07/07/2024 14:34:18 polysomno gram, split night - Please call patient to schedule. [address] [facility] [facility], [address] [place], [address], 07/27/2024 10:32:23 US, echocardi ogram, transthor acic, complete, w/ color flow - Please call patient to schedule. 2023 024 [facility] ([facility]), [address] [place], [address], 06/25/2024 10:38:22 XR, knee [address] ([facility]), [address] [place], [address], 07/21/2023 20:29:31 Medication Orders albuterol sulfate HFA 90 mcg/actua tion aerosol inhaler 2024 025 [facility], [address] [place], [address], 08/23/2024 11:06:14 Flovent HFA 44 mcg/actua tion aerosol inhaler 2024 025 [facility], [address] [place], [address], 08/23/2024 11:06:12 albuterol sulfate HFA 90 mcg/actua tion aerosol inhaler [address] [place], [place], [id number], 06/30/2024 10:19:33 Patient TargetsNo targets recorded. Patient Instructions Encounter Date Encounter Id Patient Instructions Last Modified By Organization Details Last Modified Time 07/04/2023 [id number] Thank you for your visit to our office today. We would like to request that you reach out to your referring or previous provider and request that they send us a Summary of Care in electronic form, so that we may have it on file in your medical record. At your visit, we had the medical records we needed to provide you with the best possible care; however, for insurance purposes, an electronic Summary of Care is beneficial. Thank you for your assistance in obtaining this information and we look forward to providing continued care to you. Please review your medication list from the Summary of Care for this visit. If there are any differences from what you are currently taking at home, please call us to discuss. Not available 07/04/2023 11:00:21 Homebound Status : {{Patient has an inability to leave the home without a taxing effort and assistance from another person Does not meet homebound status}} Required Home Health Services: {{none penitentiary, physical therapy, occupational therapy penitentiary, physical therapy penitentiary}} Durable Medical Equipment needed: {{cane walker wal ker with seat manual wheelchair bedsid e commode oxygen}} Billing Guidelines CPT code 38772- Transitional Care Management services with moderate medical decision complexity (hzih-ms-jaft visit within 14 days of discharge). CPT code 09950- Transitional Care Management services with high medical decision complexity (sryh-vi-sywh visit within 7 days of discharge). Not available 07/04/2023 11:00:21 06/15/2024 [id number] methacholine challenge* - Please call patient to schedule. NPAN [id number] w/ traditional MCR/BISMARK. [email or web address] Not available 07/27/2024 10:31:59 06/30/2024 [id number] methacholine challenge* - Please call patient to schedule. NPAN [id number] w/ traditional MCR/BISMARK. SANDRINE Not available 08/18/2024 17:25:05 Reason for Referral Director Heart Referral for At rial fibrillation Please call patient to schedule. Referring Physician: Cory Ortiz, Pulmonary Disease, Encounter Date: 06/30/2024 Results Created Date Observation Date Name Description Value Unit Range Abnormal Flag Note LastModifiedBy Organization Detail LastModifiedTime 03/10/20 23 03/10/2023 CBC/C OMPLE TE BLD COUNT W/DIF F white blood cells 11.1 x10'3 /uL 4.2-10 .8 high Not Available [facility] (Lab) [address] [place], [address], 03/10/2023 18:37:48 03/10/20 23 03/10/2023 CBC/C OMPLE TE BLD COUNT W/DIF F red blood cells 4.85 x10'6 /uL 3.80-5 .20 Not Available [facility] (Lab) [address] [place], [address], 03/10/2023 18:37:48 03/10/20 23 03/10/2023 CBC/C OMPLE TE BLD COUNT W/DIF F hemoglobin 15.8 g/dL 12.0-1 5.6 high Not Available [facility] (Lab) [address] [place], [address], 03/10/2023 18:37:48 03/10/20 23 03/10/2023 CBC/C OMPLE TE BLD COUNT W/DIF F hematocrit 47.2 % 35.7-4 5.7 high Not Available [facility] (Lab) [address] [place], [address], 03/10/2023 18:37:48 03/10/20 23 03/10/2023 CBC/C OMPLE TE BLD COUNT W/DIF F mean red cell volume 97.3 fL 82.0-9 9.0 Not Available [facility] (Lab) [address] [place], [address], 03/10/2023 18:37:48 03/10/20 23 03/10/2023 CBC/C OMPLE TE BLD COUNT W/DIF F mean red cell hemoglobin 32.6 pg 27.0-3 3.0 Not Available [facility] (Lab) [address] [place], [address], 03/10/2023 18:37:48 03/10/20 23 03/10/2023 CBC/C OMPLE TE BLD COUNT W/DIF F mean RBC HGB concentratio n 33.5 g/dL 31.0-3 6.0 Not Available [facility] (Lab) [address] [place], [address], 03/10/2023 18:37:48 03/10/20 23 03/10/2023 CBC/C OMPLE TE BLD COUNT W/DIF F red cell distribution width 13.7 % 11.8-1 5.5 Not Available [facility] (Lab) [address] [place], [address], 03/10/2023 18:37:48 03/10/20 23 03/10/2023 CBC/C OMPLE TE BLD COUNT W/DIF F platelets 291 x10'3 /uL 150-40 0 Not Available [facility] (Lab) [address] [place], [address], 03/10/2023 18:37:48 03/10/20 23 03/10/2023 CBC/C OMPLE TE BLD COUNT W/DIF F mean platelet volume 8.7 fL 9.0-12 .4 low Not Available [facility] (Lab) [address] [place], [address], 03/10/2023 18:37:48 03/10/20 23 03/10/2023 CBC/C OMPLE TE BLD COUNT W/DIF F neutrophils 62.7 % 39.0-7 2.0 Not Available [facility] (Lab) [address] [place], [address], 03/10/2023 18:37:48 03/10/20 23 03/10/2023 CBC/C OMPLE TE BLD COUNT W/DIF F lymphocytes 28.9 % 16.0-4 7.0 Not Available [facility] (Lab) [address] [place], [address], 03/10/2023 18:37:48 03/10/20 23 03/10/2023 CBC/C OMPLE TE BLD COUNT W/DIF F monocytes 5.6 % 5.0-12 .0 Not Available [facility] (Lab) [address] [place], [address], 03/10/2023 18:37:48 03/10/20 23 03/10/2023 CBC/C OMPLE TE BLD COUNT W/DIF F eosinophils 1.7 % 1.0-7. 0 Not Available [facility] (Lab) [address] [place], [address], 03/10/2023 18:37:48 03/10/20 23 03/10/2023 CBC/C OMPLE TE BLD COUNT W/DIF F basophils 0.5 % 0.0-2. 0 Not Available [facility] (Lab) [address] [place], [address], 03/10/2023 18:37:48 03/10/20 23 03/10/2023 CBC/C OMPLE TE BLD COUNT W/DIF F immature granulocytes 0.6 % 0.00-0 .50 high Not Available [facility] (Lab) [address] [place], [address], 03/10/2023 18:37:48 03/10/20 23 03/10/2023 CBC/C OMPLE TE BLD COUNT W/DIF F neutrophils, absolute count 6.95 x10'3 /uL 1.5-8. 0 Not Available [facility] (Lab) [address] [place], [address], 03/10/2023 18:37:48 03/10/20 23 03/10/2023 CBC/C OMPLE TE BLD COUNT W/DIF F lymphocytes, absolute count 3.21 x10'3 /uL 1.07-3 .43 Not Available [facility] (Lab) [address] [place], [address], 03/10/2023 18:37:48 03/10/20 23 03/10/2023 CBC/C OMPLE TE BLD COUNT W/DIF F monocytes, absolute count 0.62 x10'3 /uL 0.29-0 .99 Not Available [facility] (Lab) [address] [place], [address], 03/10/2023 18:37:48 03/10/20 23 03/10/2023 CBC/C OMPLE TE BLD COUNT W/DIF F eosinophils, absolute count 0.19 x10'3 /uL 0.02-0 .53 Not Available [facility] (Lab) [address] [place], [address], 03/10/2023 18:37:48 03/10/20 23 03/10/2023 CBC/C OMPLE TE BLD COUNT W/DIF F basophils, absolute count 0.06 x10'3 /uL 0.01-0 .08 Not Available [facility] (Lab) [address] [place], [address], 03/10/2023 18:37:48 03/10/20 23 03/10/2023 CBC/C OMPLE TE BLD COUNT W/DIF F immature granulocytes ,absolute 0.07 x10'3 /uL 0.00-0 .05 high Not Available [facility] (Lab) [address] [place], [address], 03/10/2023 18:37:48 03/10/20 23 03/10/2023 CBC/C OMPLE TE BLD COUNT W/DIF F nucleated red blood cells 0.0 % -0 Not Available [facility] (Lab) [address] [place], [address], 03/10/2023 18:37:48 03/10/20 23 03/10/2023 CBC/C OMPLE TE BLD COUNT W/DIF F NRBC# 0.00 x10'3 /uL Not Available [facility] (Lab) [address] [place], [address], 03/10/2023 18:37:48 03/10/20 23 03/10/2023 COMPR EHENS ANDRIY METAB OLIC PANEL sodium 138 mmol/ L 137-14 5 Not Available [facility] (Lab) [address] [place], [address], 03/10/2023 18:54:46 03/10/20 23 03/10/2023 COMPR EHENS ANDRIY METAB OLIC PANEL potassium 4.4 mmol/ L 3.5-5. 1 Not Available [facility] (Lab) [address] [place], [address], 03/10/2023 18:54:46 03/10/20 23 03/10/2023 COMPR EHENS ANDRIY METAB OLIC PANEL chloride 103 mmol/ L 98-107 Not Available [facility] (Lab) [address] [place], [address], 03/10/2023 18:54:46 03/10/20 23 03/10/2023 COMPR EHENS ANDRIY METAB OLIC PANEL carbon dioxide 22 mmol/ L 22-30 Not Available [facility] (Lab) [address] [place], [address], 03/10/2023 18:54:46 03/10/20 23 03/10/2023 COMPR EHENS ANDRIY METAB OLIC PANEL anion gap 17.4 mmol/ L 14-22 Not Available [facility] (Lab) [address] [place], [address], 03/10/2023 18:54:46 03/10/20 23 03/10/2023 COMPR EHENS ANDRIY METAB OLIC PANEL glucose 168 mg/dL 70-99 high Not Available [facility] (Lab) [address] [place], [address], 03/10/2023 18:54:46 03/10/20 23 03/10/2023 COMPR EHENS ANDRIY METAB OLIC PANEL BUN 21 mg/dL 8-19 high Not Available [facility] (Lab) [address] [place], [address], 03/10/2023 18:54:46 03/10/20 23 03/10/2023 COMPR EHENS ANDRIY METAB OLIC PANEL creatinine 1.35 mg/dL 0.66-1 .25 high Not Available [facility] (Lab) [address] [place], [address], 03/10/2023 18:54:46 03/10/20 23 03/10/2023 COMPR EHENS ANDRIY METAB OLIC PANEL GFR 41 Refer ence Range : Chromo ge GFR Healt hy Adult : >60 mL/mi n/1.7 3 m2 Chron ic Kidne y Disea se: 15-60 mL/mi n/1.7 3 m2 Kidne y Failu re: <15/m L/min /1.73 m2 www.n iddk. nih.g ov The MDRD study equat ion has not been valid ated in child kwame <18 years of age; pregn ant women ; the elder ly >85 years of age; or in some racia l or ethni c subgr oups, such as Hismeli nics. Outsi de the valid ated aaliyah eters , estim ated GFR is less accur ate, requi ring clini arnie judgm ent on a case- by-ca se basis . Clini arnie inter preta tion for other races and ages must be made by the clini luis. The MDRD study equat ion has not been valid ated for the evalu ation of serum creat inine relat ed to nutri ha l statu s or medic ation usage . For perso ns <18 years of age, a pedia tric GFR calcu lator is avail able on the [facility] websi te: https :[email or web address] moore.raoul looney.jorge rg/pr ofess ional s/kdo qi/gf r_cal culat or Not Available [facility] (Lab) [address] [place], [address], 03/10/2023 18:54:46 03/10/20 23 03/10/2023 COMPR EHENS ANDRIY METAB OLIC PANEL alkaline phosphatase 132 U/L 38-126 high Not Available [facility] (Lab) [address] [place], [address], 03/10/2023 18:54:46 03/10/20 23 03/10/2023 COMPR EHENS ANDRIY METAB OLIC PANEL alanine aminotransfe rase 25 U/L 0-35 Not Available [facility] (Lab) [address] [place], [address], 03/10/2023 18:54:46 03/10/20 23 03/10/2023 COMPR EHENS ANDRIY METAB OLIC PANEL aspartate aminotransfe rase 25 U/L 15-37 Not Available [facility] (Lab) [address] [place], [address], 03/10/2023 18:54:46 03/10/20 23 03/10/2023 COMPR EHENS ANDRIY METAB OLIC PANEL bilirubin, total 0.40 mg/dL 0.20-1 .30 Not Available [facility] (Lab) [address] [place], [address], 03/10/2023 18:54:46 03/10/20 23 03/10/2023 COMPR EHENS ANDRIY METAB OLIC PANEL calcium 9.3 mg/dL 8.4-10 .2 Not Available [facility] (Lab) [address] [place], [address], 03/10/2023 18:54:46 03/10/20 23 03/10/2023 COMPR EHENS ANDRIY METAB OLIC PANEL total protein 7.5 g/dL 6.3-8. 2 Not Available [facility] (Lab) [address] [place], [address], 03/10/2023 18:54:46 03/10/20 23 03/10/2023 COMPR EHENS ANDRIY METAB OLIC PANEL albumin 4.0 g/dL 3.4-5. 0 Not Available [facility] (Lab) [address] [place], [address], 03/10/2023 18:54:46 03/10/20 23 03/10/2023 COMPR EHENS ANDRIY METAB OLIC PANEL globulin 3.5 g/dL 2.6-4. 2 Not Available [facility] (Lab) [address] [place], [address], 03/10/2023 18:54:46 03/10/20 23 03/10/2023 COMPR EHENS ANDRIY METAB OLIC PANEL A/G ratio 1.1 ratio 1.0-2. 0 Not Available [facility] (Lab) [address] [place], [address], 03/10/2023 18:54:46 03/10/20 23 03/10/2023 LIPID PANEL cholesterol 154 mg/dL 140-19 9 NIH TY NSUS RECOM MENDA TION FOR CACHORRO STERO L: ADULT CHILD LOW RISK: <200 <170 BORDE RLINE : <200- 239 ----- HIGH RISK: >240 >200 Not Available [facility] (Lab) [address] [place], [address], 03/10/2023 18:54:54 03/10/20 23 03/10/2023 LIPID PANEL triglyceride s 470 mg/dL 0-150 high NIH TY NSUS REPOR T RECOM MENDA TION FOR TRIGL YCERI BREN: ADULT CHILD LOW RISK: <150 ----- BODER LINE: 150-1 99 ----- HIGH RISK: >200 ----- Not Available [facility] (Lab) [address] [place], [address], 03/10/2023 18:54:54 03/10/20 23 03/10/2023 LIPID PANEL HDL cholesterol 32 mg/dL 40- low Not Available [facility] (Lab) [address] [place], [address], 03/10/2023 18:54:54 03/10/20 23 03/10/2023 HEMOG LOBIN A1C HA1C 6.6 % 4.0-6. 0 high Diabe laureano Scree emile Crite fela: <5.7% Consi stent with absen ce of diabe laureano 5.7-6 .4% Consi stent with incre ased risk for diabe laureano (pred iabet es) >OR=6 .5% Consi stent with diabe laureano REFER ENCE: Diabe laureano Care 2016, 39(Delgadillo ppl.1 ):s13 -s22 Not Available [facility] (Lab) [address] [place], [address], 03/10/2023 21:46:44 07/04/20 23 07/04/2023 CBC/C OMPLE TE BLD COUNT W/DIF F white blood cells 11.4 x10'3 /uL 4.2-10 .8 high Not Available [facility] (Lab) [address] [place], [address], 07/04/2023 12:37:28 07/04/20 23 07/04/2023 CBC/C OMPLE TE BLD COUNT W/DIF F red blood cells 4.69 x10'6 /uL 3.80-5 .20 Not Available [facility] (Lab) [address] [place], [address], 07/04/2023 12:37:28 07/04/20 23 07/04/2023 CBC/C OMPLE TE BLD COUNT W/DIF F hemoglobin 16.0 g/dL 12.0-1 5.6 high Not Available [facility] (Lab) [address] [place], [address], 07/04/2023 12:37:28 07/04/20 23 07/04/2023 CBC/C OMPLE TE BLD COUNT W/DIF F hematocrit 48.0 % 35.7-4 5.7 high Not Available [facility] (Lab) [address] [place], [address], 07/04/2023 12:37:28 07/04/20 23 07/04/2023 CBC/C OMPLE TE BLD COUNT W/DIF F mean red cell volume 102.3 fL 82.0-9 9.0 high Not Available [facility] (Lab) [address] [place], [address], 07/04/2023 12:37:28 07/04/20 23 07/04/2023 CBC/C OMPLE TE BLD COUNT W/DIF F mean red cell hemoglobin 34.1 pg 27.0-3 3.0 high Not Available [facility] (Lab) [address] [place], [address], 07/04/2023 12:37:28 07/04/20 23 07/04/2023 CBC/C OMPLE TE BLD COUNT W/DIF F mean RBC HGB concentratio n 33.3 g/dL 31.0-3 6.0 Not Available [facility] (Lab) [address] [place], [address], 07/04/2023 12:37:28 07/04/20 23 07/04/2023 CBC/C OMPLE TE BLD COUNT W/DIF F red cell distribution width 13.2 % 11.8-1 5.5 Not Available [facility] (Lab) [address] [place], [address], 07/04/2023 12:37:28 07/04/20 23 07/04/2023 CBC/C OMPLE TE BLD COUNT W/DIF F platelets 288 x10'3 /uL 150-40 0 Not Available [facility] (Lab) [address] [place], [address], 07/04/2023 12:37:28 07/04/20 23 07/04/2023 CBC/C OMPLE TE BLD COUNT W/DIF F mean platelet volume 8.7 fL 9.0-12 .4 low Not Available [facility] (Lab) [address] [place], [address], 07/04/2023 12:37:28 07/04/20 23 07/04/2023 CBC/C OMPLE TE BLD COUNT W/DIF F neutrophils 72.7 % 39.0-7 2.0 high Not Available [facility] (Lab) [address] [place], [address], 07/04/2023 12:37:28 07/04/20 23 07/04/2023 CBC/C OMPLE TE BLD COUNT W/DIF F lymphocytes 19.8 % 16.0-4 7.0 Not Available [facility] (Lab) [address] [place], [address], 07/04/2023 12:37:28 07/04/20 23 07/04/2023 CBC/C OMPLE TE BLD COUNT W/DIF F monocytes 4.2 % 5.0-12 .0 low Not Available [facility] (Lab) [address] [place], [address], 07/04/2023 12:37:28 07/04/20 23 07/04/2023 CBC/C OMPLE TE BLD COUNT W/DIF F eosinophils 1.9 % 1.0-7. 0 Not Available [facility] (Lab) [address] [place], [address], 07/04/2023 12:37:28 07/04/20 23 07/04/2023 CBC/C OMPLE TE BLD COUNT W/DIF F basophils 0.6 % 0.0-2. 0 Not Available [facility] (Lab) [address] [place], [address], 07/04/2023 12:37:28 07/04/20 23 07/04/2023 CBC/C OMPLE TE BLD COUNT W/DIF F immature granulocytes 0.8 % 0.00-0 .50 high Not Available [facility] (Lab) [address] [place], [address], 07/04/2023 12:37:28 07/04/20 23 07/04/2023 CBC/C OMPLE TE BLD COUNT W/DIF F neutrophils, absolute count 8.31 x10'3 /uL 1.5-8. 0 high Not Available [facility] (Lab) [address] [place], [address], 07/04/2023 12:37:28 07/04/20 23 07/04/2023 CBC/C OMPLE TE BLD COUNT W/DIF F lymphocytes, absolute count 2.27 x10'3 /uL 1.07-3 .43 Not Available [facility] (Lab) [address] [place], [address], 07/04/2023 12:37:28 07/04/20 23 07/04/2023 CBC/C OMPLE TE BLD COUNT W/DIF F monocytes, absolute count 0.48 x10'3 /uL 0.29-0 .99 Not Available [facility] (Lab) [address] [place], [address], 07/04/2023 12:37:28 07/04/20 23 07/04/2023 CBC/C OMPLE TE BLD COUNT W/DIF F eosinophils, absolute count 0.22 x10'3 /uL 0.02-0 .53 Not Available [facility] (Lab) [address] [place], [address], 07/04/2023 12:37:28 07/04/20 23 07/04/2023 CBC/C OMPLE TE BLD COUNT W/DIF F basophils, absolute count 0.07 x10'3 /uL 0.01-0 .08 Not Available [facility] (Lab) [address] [place], [address], 07/04/2023 12:37:28 07/04/20 23 07/04/2023 CBC/C OMPLE TE BLD COUNT W/DIF F immature granulocytes ,absolute 0.09 x10'3 /uL 0.00-0 .05 high Not Available [facility] (Lab) [address] [place], [address], 07/04/2023 12:37:28 07/04/20 23 07/04/2023 CBC/C OMPLE TE BLD COUNT W/DIF F nucleated red blood cells 0.0 % -0 Not Available [facility] (Lab) [address] [place], [address], 07/04/2023 12:37:28 07/04/20 23 07/04/2023 CBC/C OMPLE TE BLD COUNT W/DIF F NRBC# 0.00 x10'3 /uL Not Available [facility] (Lab) [address] [place], [address], 07/04/2023 12:37:28 07/04/20 23 07/04/2023 COMPR EHENS ANDRIY METAB OLIC PANEL sodium 139 mmol/ L 137-14 5 Not Available [facility] (Lab) [address] [place], [address], 07/04/2023 12:50:43 07/04/20 23 07/04/2023 COMPR EHENS ANDRIY METAB OLIC PANEL potassium 4.7 mmol/ L 3.5-5. 1 Not Available [facility] (Lab) [address] [place], [address], 07/04/2023 12:50:43 07/04/20 23 07/04/2023 COMPR EHENS ANDRIY METAB OLIC PANEL chloride 100 mmol/ L 98-107 Not Available [facility] (Lab) [address] [place], [address], 07/04/2023 12:50:43 07/04/20 23 07/04/2023 COMPR EHENS ANDRIY METAB OLIC PANEL carbon dioxide 30 mmol/ L 22-30 Not Available [facility] (Lab) [address] [place], [address], 07/04/2023 12:50:43 07/04/20 23 07/04/2023 COMPR EHENS ANDRIY METAB OLIC PANEL anion gap 13.7 mmol/ L 14-22 low Not Available [facility] (Lab) [address] [place], [address], 07/04/2023 12:50:43 07/04/20 23 07/04/2023 COMPR EHENS ANDRIY METAB OLIC PANEL glucose 215 mg/dL 70-99 high Not Available [facility] (Lab) [address] [place], [address], 07/04/2023 12:50:43 07/04/20 23 07/04/2023 COMPR EHENS ANDRIY METAB OLIC PANEL BUN 24 mg/dL 8-19 high Not Available [facility] (Lab) [address] [place], [address], 07/04/2023 12:50:43 07/04/20 23 07/04/2023 COMPR EHENS ANDRIY METAB OLIC PANEL creatinine 1.49 mg/dL 0.66-1 .25 high Not Available [facility] (Lab) [address] [place], [address], 07/04/2023 12:50:43 07/04/20 23 07/04/2023 COMPR EHENS ANDRIY METAB OLIC PANEL GFR 36 Refer ence Range : Chromo ge GFR Healt hy Adult : >60 mL/mi n/1.7 3 m2 Chron ic Kidne y Disea se: 15-60 mL/mi n/1.7 3 m2 Kidne y Failu re: <15/m L/min /1.73 m2 www.n iddk. nih.g ov The MDRD study equat ion has not been valid ated in child kwame <18 years of age; pregn ant women ; the elder ly >85 years of age; or in some racia l or ethni c subgr oups, such as nh nics. Outsi de the valid ated aaliyah eters , estim ated GFR is less accur ate, requi ring clini arnie judgm ent on a case- by-ca se basis . Clini arnie inter preta tion for other races and ages must be made by the clini luis. The MDRD study equat ion has not been valid ated for the evalu ation of serum creat inine relat ed to nutri ha l statu s or medic ation usage . For perso ns <18 years of age, a pedia tric GFR calcu lator is avail able on the F websi te: https ://brie w.raoul looney.o rg/pr ofess ional s/kdo qi/gf r_cal culat or Not Available [facility] (Lab) [address] [place], [address], 07/04/2023 12:50:43 07/04/20 23 07/04/2023 COMPR EHENS ANDRIY METAB OLIC PANEL alkaline phosphatase 129 U/L 38-126 high Not Available [facility] (Lab) [address] [place], [address], 07/04/2023 12:50:43 07/04/20 23 07/04/2023 COMPR EHENS ANDRIY METAB OLIC PANEL alanine aminotransfe rase 23 U/L 0-35 Not Available [facility] (Lab) [address] [place], [address], 07/04/2023 12:50:43 07/04/20 23 07/04/2023 COMPR EHENS ANDRIY METAB OLIC PANEL aspartate aminotransfe rase 22 U/L 15-37 Not Available [facility] (Lab) [address] [place], [address], 07/04/2023 12:50:43 07/04/20 23 07/04/2023 COMPR EHENS ANDRIY METAB OLIC PANEL bilirubin, total 0.60 mg/dL 0.20-1 .30 Not Available [facility] (Lab) [address] [place], [address], 07/04/2023 12:50:43 07/04/20 23 07/04/2023 COMPR EHENS ANDRIY METAB OLIC PANEL calcium 9.3 mg/dL 8.4-10 .2 Not Available [facility] (Lab) [address] [place], [address], 07/04/2023 12:50:43 07/04/20 23 07/04/2023 COMPR EHENS ANDRIY METAB OLIC PANEL total protein 7.7 g/dL 6.3-8. 2 Not Available [facility] (Lab) [address] [place], [address], 07/04/2023 12:50:43 07/04/20 23 07/04/2023 COMPR EHENS ANDRIY METAB OLIC PANEL albumin 4.0 g/dL 3.4-5. 0 Not Available [facility] (Lab) [address] [place], [address], 07/04/2023 12:50:43 07/04/20 23 07/04/2023 COMPR EHENS ANDRIY METAB OLIC PANEL globulin 3.7 g/dL 2.6-4. 2 Not Available [facility] (Lab) [address] [place], [address], 07/04/2023 12:50:43 07/04/20 23 07/04/2023 COMPR EHENS ANDRIY METAB OLIC PANEL A/G ratio 1.1 ratio 1.0-2. 0 Not Available [facility] (Lab) [address] [place], [address], 07/04/2023 12:50:43 07/04/20 23 07/04/2023 LIPID PANEL cholesterol 145 mg/dL 140-19 9 NIH TY NSUS RECOM MENDA TION FOR CACHORRO STERO L: ADULT CHILD LOW RISK: <200 <170 BORDE RLINE : <200- 239 ----- HIGH RISK: >240 >200 Not Available [facility] (Lab) [address] [place], [address], 07/04/2023 12:51:12 07/04/20 23 07/04/2023 LIPID PANEL triglyceride s 409 mg/dL 0-150 high NIH TY NSUS REPOR T RECOM MENDA TION FOR TRIGL YCERI BREN: ADULT CHILD LOW RISK: <150 ----- BODER LINE: 150-1 99 ----- HIGH RISK: >200 ----- Not Available [facility] (Lab) [address] [place], [address], 07/04/2023 12:51:12 07/04/20 07/04/2023 LIPID PANEL HDL cholesterol 42 mg/dL 40- Not Available [facility] (Lab) [address] [place], [address], 07/04/2023 12:51:12 07/04/20 23 07/04/2023 T3 FREE free T3 3.8 pg/mL 2.77-5 .27 Not Available [facility] (Lab) [address] [place], [address], 07/04/2023 12:59:15 07/04/20 23 07/04/2023 T4 FREE free T4 0.90 NG/dL 0.78-2 .19 Not Available [facility] (Lab) [address] [place], [address], 07/04/2023 12:59:20 07/04/20 23 07/04/2023 BNP/B -NATR IURET IC PEPTI DE BNP 24 pg/mL 4-125 Not Available [facility] (Lab) [address] [place], [address], 07/04/2023 13:09:42 07/04/20 23 07/04/2023 HEMOG LOBIN A1C HA1C 6.4 % 4.0-6. 0 high Diabe laureano Scree emile Crite fela: <5.7% Consi stent with absen ce of diabe laureano 5.7-6 .4% Consi stent with incre ased risk for diabe laureano (pred iabet es) >OR=6 .5% Consi stent with diabe laureano REFER ENCE: Diabe laureano Care 2016, 39([place] ppl.1 ):s13 -s22 Not Available [facility] (Lab) [address] [place], [address], 07/04/2023 13:19:43 07/04/20 23 07/04/2023 TSH thyroid-stim ulating hormone 1.060 uIU/m L 0.465- 4.680 Not Available [facility] (Lab) [address] [place], [address], 07/04/2023 13:23:28 06/25/20 24 06/24/2024 US, echoc ardio gram, trans thora cic, compl ete, w/ color flow No observ ation record ed. [facility] [address] [place], [address], 06/27/2024 11:55:37 08/18/19 25 08/18/2024 metha choli ne chall enge* No observ ation record ed. [facility] ([facility]) [address] [place], [address], 08/18/2024 17:25:06 08/20/19 25 08/18/2024 polys omnog marie, split night No observ ation record ed. [facility] [address] [place], [address], 08/20/2024 10:30:55 Result Notes None recorded. Problems Name Problem SNOMED Code Status Onset Date Resolution Date Notes Provider Name and Address Organization Details Recorded Time Disorder of lower limb 323655089 Completed Not Available [facility] 3 03:20:43 Rectal hemorrhag e 34144263 Active 2021 Not Available [facility] 3 05:19:55 Plantar fasciitis of left foot 59574783281 705418 Active 2020 Not Available [facility] 3 05:19:55 Celluliti s of skin 823479005 Completed Not Available [facility] 3 03:20:43 Open wound of finger 361261987 Completed Not Available [facility] 3 03:20:43 Hearing loss 81489466 Completed Not Available [facility] 3 03:20:43 Subarachn oid hemorrhag e 16411130 Active Not Available [facility] 3 05:19:56 Incisiona l hernia 537588155 Active Not Available [facility] 3 05:19:56 Morbid obesity 943635145 Active Not Available [facility] 3 05:19:56 Osteoarth ritis of knee 974693271 Active Not Available [facility] 3 05:19:56 Lesion of external ear 822778901 Completed Not Available [facility] 3 03:20:44 Type 2 diabetes mellitus without complicat ion 279642647 Active Not Available [facility] 3 05:19:56 Nausea 079849830 Completed Not Available [facility] 3 03:20:44 Type 2 diabetes mellitus 40180835 Completed Not Available [facility] 3 03:20:45 Wheezing 55096734 Completed Not Available [facility] 3 03:20:45 Essential hypertens ion 13235727 Active 2016 Not Available [facility] 3 05:19:56 Allergic rhinitis 36796859 Active 2016 Not Available [facility] 3 05:19:56 Diarrhea 63023266 Completed Not Available [facility] 3 03:20:45 Venous stasis 35390487 Active Not Available [facility] 3 05:19:56 Diabetes mellitus 29611320 Completed 202004/11/2021 Not Available [facility] 3 03:20:45 Obstructi ve sleep apnea syndrome 16808635 Active 2016 Not Available [facility] 3 05:19:56 Nocturnal enuresis 0632787 Active Not Available [facility] 3 05:19:56 Skin lesion [id number] Completed Not Available [facility] 3 03:20:46 Periodic limb movement disorder 841962488 Active 2023 Cory Ortiz MD [address], [place] [address], [place], [address] , [employer] [facility] [employer] [facility] 4 16:38:06 Chronic kidney disease 623621904 Active 2023 Cory Ortiz MD [address], [address], [place], [address] , [employer] [facility] [employer] [facility] 4 16:38:11 Atrial fibrillat ion 10319146 Active 2023 Cory Ortiz MD [address] [facility], [address], [place], [address] , [employer] 4 10:35:41 Dyspnea on exertion 94041245 Active 2024 Cory Ortiz MD [address] [facility], [address], [place], [address] , [employer] 5 10:43:45 Mild persisten t asthma 712855862 Active 2024 Cory Ortiz MD [address] [facility], [address], [place], [address] , [employer] 5 10:49:06 Notes:Medical History: Subar achnoid hemorrhage Anxiety/Bipolar depression Tardive dyskinesia Glaucoma Rhinitis Methacholine (+) mild persistent asthma Delayed sleep phase syndrome Erythrocytosis Early REM onset Obesity with mild OSAS, AI = 2, 06/12/21 Obesity with mod OSAHS, AHI = 18, 08/18/24, on CPAP c/o IVRC Moderate restrictive airflow impairment Paroxysmal atrial fibrillation Hypertension with mild LVH Mixed hyperlipidemia T2DM with neuropathy [place] Incisional hernia Rectal hemorrhage Urge urinary incontinence CKD PLMD Venous stasis Knee osteoarthritis Left plantar fasciitis Procedure History: T&A 1973 Laparoscopic cholecystectomy 1999 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 Procedures Surgical History Date Name Laterality Status Provider Name and Address Organization Details Recorded Time 07/04/20 23 Transitional_Care_ Management completed Tran Cooper MA [employer] 07/04/2023 11:00:21 11/12/19 23 Medicare Wellness CPT Code, subsequent completed Naomi Sanches RN [employer] 11/11/2022 14:58:28 09/05/19 22 Date of Last Colonoscopy completed Naomi Sanches RN [facility] [employer] 11/11/2022 15:17:34 01/16/20 21 Date of Last Mammogram completed Naomi Sanches RN [place] [employer] 11/11/2022 15:18:10 Colonoscopy completed Not Available [facility] 09/18/2022 03:12:34 Cholecystectomy completed Not Available [facility] 09/18/2022 03:12:34 Carpal tunnel completed Not Available [facility] 09/18/2022 03:12:34 Imaging Results Imaging Date Name Status LastModified by Organization Details LastModified Time 06/24/2024 US, echocardiogram, transthoracic, complete, w/ color flow completed [address] [place], [address], 06/27/2024 11:55:37 08/18/2024 methacholine challenge* completed [facility] ([employer]) [address] [place], [address], 08/18/2024 17:25:06 08/18/2024 polysomnogram, split night completed [facility] [place] [address] [place], [address], 08/20/2024 10:30:55 Procedure Notes None recorded. Medical Equipment None Reported. Allergies Allergen ID Allergen Name Allergen Category Reaction Reaction Severity Criticality Documentation Date Start Date Code Code System Note Provider Name and Address Organization Details Recorded Time 5980 vancomyci n medicatio n angioedem a severe Not available 09/18/2022 57567 RxNorm Not Available [facility] 3 03:31:31 5981 Substance with sulfonami de structure and antibacte rial mechanism of action (substanc e) medicatio n hives Not available Not available 09/18/2022 17242 8003 SNOMED Not Available [facility] 3 03:31:32 5982 morphine medicatio n itching Not available Not available 09/18/2022 7052 RxNorm mood duval es Not Available [facility] 3 03:31:32 5983 latex environme nt,medica tion rash Not available Not available 09/18/2022 94564 91 RxNorm Not Available [facility] 3 03:31:32 5984 clindamyc in Not available Not available Not available Not available 09/18/2022 2582 RxNorm Not Available [facility] 3 03:31:32 5985 Augmentin medicatio n hives severe Not available 09/18/2022 42462 2 RxNorm Not Available [facility] 03:31:32 Medications Name Sig Start Date Stop Date Status Note LastModified by Organization Details LastModified Time losartan 50 mg tablet 03/26 completed Not Available Not Available Not Available carisopro dol 350 mg tablet TAKE 1 TABLET DAILY NEEDED 11/27 completed Not Available Not Available Not Available celecoxib 200 mg capsule 04/10 completed Not Available Not Available Not Available cyclobenz aprine 10 mg tablet 06/15 completed Not Available Not Available Not Available amoxicill in 500 mg capsule 06/27 completed Not Available Not Available Not Available furosemid e 40 mg tablet active Not Available Not Available Not Available latanopro st 0.005 % eye drops INSTILL 1 DROP INTO EACH EYE AT BEDTIME active Not Available Not Available No t Available lamotrigi ne 150 mg tablet 12/14 completed Not Available Not Available Not Available metformin 500 mg tablet TAKE 1 TABLET BY MOUTH ONCE DAILY active Not Available Not Available No t Available albuterol sulfate 0.63 mg/3 mL solution for nebulizat ion inhale q 4 hrs prn shortnes s of breath 10/31 completed Not Available Not Available Not Available bupropion HCl SR 150 mg tablet,12 hr sustained -release 10/02 completed Not Available Not Available Not Available prednison e 10 mg tablet 11/29 completed Not Available Not Available Not Available gabapenti n 600 mg tablet TAKE 1 TABLET BY MOUTH THREE TIMES DAILY 06/15 completed Not Available Not Available Not Available doxycycli ne hyclate 100 mg capsule Take 1 capsule twice a day by oral route for 10 days. 06/15 completed Not Available Not Available Not Available lamotrigi ne 200 mg tablet TAKE ONE TABLET TWICE DAILY 08/07 completed Not Available Not Available Not Available clindamyc in HCl 300 mg capsule 06/27 completed Not Available Not Available Not Available albuterol sulfate 2.5 mg/3 mL (0.083 %) solution for nebulizat ion Inhale 3 mL 3 times a day by nebuliza tion route as needed for 30 days. 06/24 completed Need to make appointm ent Not Available Not Available Not Available trazodone 50 mg tablet TAKE 3 TABLETS DAILY AT BEDTIME 06/15 completed Not Available Not Available Not Available atorvasta tin 10 mg tablet TAKE ONE TABLET DAILY active Not Available Not Available No t Available oxybutyni n chloride ER 10 mg tablet,ex tended release 24 hr TAKE 1 TABLET BY MOUTH ONCE DAILY 10/14 completed Not Available Not Available Not Available azithromy rigo 250 mg tablet Take 1 dose pk by oral route as directed . 06/15 completed Not Available Not Available Not Available ampicilli n 500 mg capsule TAKE 1 CAPSULE THREE TIMES A DAY FOR 10 DAYS 11/05 completed Not Available Not Available Not Available hydrocodo ne 5 mg-acetam inophen 325 mg tablet TAKE ONE TABLET 3 TIMES DAILY 03/16 completed Not Available Not Available Not Available meloxicam 15 mg tablet TAKE ONE TABLET DAILY WITH FOOD OR MILK 05/31 completed Not Available Not Available Not Available prednison e 20 mg tablet active Not Available Not Available Not Available desmopres sin 0.2 mg tablet TAKE ONE TABLET DAILY AT BEDTIME active Not Available Not Available No t Available clobetaso l 0.05 % topical cream 04/22 completed Not Available Not Available Not Available Diflucan 150 mg tablet Take 1 tablet every day by oral route. 06/26 completed Not Available Not Available Not Available valsartan 80 mg tablet TAKE 1 TABLET DAILY IN THE EVENING 04/10 completed Not Available Not Available Not Available methylphe nidate ER 54 mg tablet,ex tended release 24 hr 06/27 completed Not Available Not Available Not Available acetamino phen 300 mg-codein e 30 mg tablet 09/24 completed Not Available Not Available Not Available ciproflox acin 500 mg tablet Take 1 tablet every 12 hours by oral route. 04/10 completed Not Available Not Available Not Available hydrocodo ne 10 mg-acetam inophen 325 mg tablet TAKE ONE TABLET 3 TIMES DAILY NEEDED 04/10 completed Not Available Not Available Not Available peg-elect rolyte solution 420 gram oral solution 11/08 completed Not Available Not Available Not Available tramadol 50 mg tablet TAKE 1-2 TABLETS AT BEDTIME NEEDED FOR PAIN active Not Available Not Available No t Available triamcino lone acetonide 0.1 % topical cream APPLT TO BOTH CALVES TWICE A DAY FOR 10 DAYS 10/14 completed Not Available Not Available Not Available bupropion HCl SR 100 mg tablet,12 hr sustained -release 09/26 completed Not Available Not Available Not Available glimepiri de 2 mg tablet active Not Available Not Available Not Available glimepiri de 1 mg tablet TAKE 1 TABLET BY MOUTH DAILY 06/15 completed Not Available Not Available Not Available lamotrigi ne 25 mg tablet active Not Available Not Available Not Available pramipexo le 0.5 mg tablet TAKE ONE TABLET DAILY IN THE EVENING DIRECTED 03/26 completed Not Available Not Available Not Available meloxicam 7.5 mg tablet 09/26 completed Not Available Not Available Not Available terbinafi ne HCl 250 mg tablet Take 1 tablet every day by oral route. 08/07 completed Not Available Not Available Not Available ofloxacin 0.3 % ear drops INSTILL 10 DROPS IN THE AFFECTED EAR ONCE DAILY FOR 10 DAYS 09/26 completed Not Available Not Available Not Available alprazola m 0.25 mg tablet TAKE 1 TABLET EVERY 8 HOURS NEEDED active Not Available Not Available No t Available famotidin e 20 mg tablet TAKE 1 TABLET BY MOUTH DAILY active Not Available Not Available No t Available amitripty line 25 mg tablet 03/22 completed Not Available Not Available Not Available lorazepam 0.5 mg tablet 03/16 completed Not Available Not Available Not Available Lidoderm 5 % topical patch 06/24 completed Not Available Not Available Not Available cephalexi n 500 mg capsule Take 1 capsule 3 times a day by oral route for 7 days. 06/15 completed Not Available Not Available Not Available pantopraz ole 40 mg tablet,de layed release active Not Available Not Available Not Available telmisart an 40 mg tablet TAKE ONE TABLET DAILY -- THIS REPLACES OLMESART AN active Not Available Not Available No t Available metformin 1,000 mg tablet TAKE 1 TABLET BY MOUTH TWICE DAILY 06/07 completed Not Available Not Available Not Available esomepraz ole magnesium 40 mg capsule,d elayed release TAKE 1 CAPSULE BY MOUTH ONCE DAILY active Not Available Not Available No t Available buspirone 10 mg tablet TAKE 2 TABLETS BY MOUTH THREE TIMES DAILY active Not Available Not Available No t Available Gentle Laxative (bisacody l) 5 mg tablet,de layed release TAKE 6 TABS AT 8 AM ON 09/04 completed Not Available Not Available Not Available misoprost ol 200 mcg tablet 03/22 completed Not Available Not Available Not Available fluticaso ne propionat e 44 mcg/actua tion HFA aerosol inhaler Inhale 2 puffs twice a day by inhalati on route. active Not Available Not Available No t Available brimonidi ne 0.2 % eye drops INSTILL 1 DROP INTO LEFT EYE THREE TIMES DAILY 04/10 completed Not Available Not Available Not Available megestrol 40 mg tablet TAKE 1 TABLET BY MOUTH TWICE DAILY DIRECTED 06/15 completed Not Available Not Available Not Available pramipexo le 0.25 mg tablet 09/24 completed Not Available Not Available Not Available gabapenti n 300 mg capsule active Not Available Not Available Not Available Tylenol 325 mg tablet Take 2 tablets every 6 hours by oral route. 06/30 completed Not Available Not Available Not Available hydroxyzi ne HCl 25 mg tablet 06/15 completed Not Available Not Available Not Available morphine ER 15 mg tablet,ex tended release 11/27 completed Not Available Not Available Not Available diclofena c sodium 50 mg tablet,de layed release 03/22 completed Not Available Not Available Not Available Levaquin 500 mg tablet Take 1 tablet every day by oral route. 06/26 completed Not Available Not Available Not Available gabapenti n 100 mg capsule 11/29 completed Not Available Not Available Not Available ergocalci ferol (vitamin D2) 1,250 mcg (50,000 unit) capsule TAKE 1 CAPSULE BY MOUTH ONCE A WEEK active Not Available Not Available No t Available nystatin 100,000 unit/gram topical powder apply to groin BID x 2wks 11/11 completed Not Available Not Available Not Available glucagon 1 mg solution for injection Take by injectio n route. active Not Available Not Available No t Available Nasonex 50 mcg/actua tion [place] USE 2 SPRAYS IN EACH NOSTRIL ONCE DAILY 10/08 completed Not Available Not Available Not Available methylpre dnisolone 4 mg tablets in a dose pack take decreasi ng doses as directed 06/02 completed Not Available Not Available Not Available albuterol sulfate HFA 90 mcg/actua tion aerosol inhaler Inhale 1 puff every 4 hours by inhalati on route as needed. active Not Available Not Available No t Available celecoxib 100 mg capsule 03/26 completed Not Available Not Available Not Available hydroxyzi ne HCl 10 mg tablet 06/15 completed Not Available Not Available Not Available cefdinir 300 mg capsule Take 1 capsule twice a day by oral route for 7 days. active Not Available Not Available No t Available fluticaso ne propionat e 50 mcg/actua tion nasal spray,[place] pension USE 2 SPRAYS IN EACH NOSTRIL ONCE DAILY 06/15 completed Not Available Not Available Not Available risperido ne 1 mg tablet active Not Available Not Available Not Available doxycycli ne hyclate 100 mg tablet active Not Available Not Available Not Available lamotrigi ne 100 mg tablet TAKE 1 TABLET BY MOUTH ONCE DAILY 06/15 completed Not Available Not Available Not Available brimonidi ne 0.15 % eye drops INSTILL 1 DROP INTO BOTH EYES TWICE A DAY DIRECTED -- THIS REPLACES DORZOLAM PATRICIA 03/26 completed Not Available Not Available Not Available methylphe nidate ER 36 mg tablet,ex tended release 24 hr Take 1 tablet every day by oral route. 10/29 completed Not Available Not Available Not Available Microlet Lancet USE 1 TO CHECK GLUCOSE ONCE DAILY 04/10 completed Not Available Not Available Not Available amoxicill in 875 mg-potass ium clavulana te 125 mg tablet TAKE 1 TABLET TWICE DAILY UNTIL ALL TAKEN 08/23 completed Not Available Not Available Not Available neomycin- polymyxin -hydrocor t 3.5 mg-10,000 unit/mL-1 % ear drops,glenis p 09/26 completed Not Available Not Available Not Available Amphetami ne Salt Combo 5 mg tablet 04/27 completed Not Available Not Available Not Available Amphetami ne Salt Combo 20 mg tablet 04/27 completed Not Available Not Available Not Available Amphetami ne Salt Combo 30 mg tablet 11/29 completed Not Available Not Available Not Available olmesarta n 40 mg tablet TAKE ONE TABLET BY MOUTH ONCE DAILY active Not Available Not Available No t Available bupropion HCl SR 200 mg tablet,12 hr sustained -release 08/07 completed Not Available Not Available Not Available escitalop marie 10 mg tablet 08/07 completed Not Available Not Available Not Available escitalop marie 20 mg tablet TAKE ONE TABLET DAILY 09/26 completed Not Available Not Available Not Available bupropion HCl XL 300 mg 24 hr tablet, extended release TAKE 1 TABLET IN THE MORNING 11/08 completed Not Available Not Available Not Available bupropion HCl XL 150 mg 24 hr tablet, extended release TAKE 1 TABLET BY MOUTH ONCE DAILY active Not Available Not Available No t Available metoprolo l tartrate 25 mg tablet TAKE 1 TABLET BY MOUTH TWICE A DAY active Not Available Not Available No t Available Spiriva with [employer] r 18 mcg and inhalatio n capsules INHALE THE CONTENTS OF 1 CAPSULE ONCE A DAY 10/29 completed Not Available Not Available Not Available nitrofura ntoin monohydra te/macroc rystals 100 mg capsule Take 1 capsule twice a day by oral route for 5 days. 03/10 completed Not Available Not Available Not Available duloxetin e 30 mg capsule,d elayed release 09/26 completed Not Available Not Available Not Available duloxetin e 60 mg capsule,d elayed release 09/26 completed Not Available Not Available Not Available Vesicare 10 mg tablet TAKE ONE TABLET DAILY active Not Available Not Available No t Available Enablex 15 mg tablet,ex tended release active Not Available Not Available Not Available Asmanex Twisthale r 220 mcg/actua tion(60 doses) breath activated inhalr INHALE 1 PUFF TWICE A DAY active Not Available Not Available No t Available magnesium 11/27 completed Not Available Not Available Not Available Tylenol 06/27 completed Not Available Not Available Not Available latanopro st 06/30 completed Not Available Not Available Not Available Januvia 50 mg tablet TAKE 1 TABLET BY MOUTH ONCE DAILY active Not Available Not Available No t Available Januvia 100 mg tablet TAKE 1 TABLET BY MOUTH ONCE DAILY 06/15 completed Not Available Not Available Not Available Janumet 50 mg-1,000 mg tablet TAKE ONE TABLET TWICE DAILY 04/21 completed Not Available Not Available Not Available Vyvanse 30 mg capsule TAKE 1 CAPSULE DAILY IN THE MORNING 10/29 completed Not Available Not Available Not Available Combigan 0.2 %-0.5 % eye drops active Not Available Not Available Not Available brimonidi ne-timolo l 06/30 completed Not Available Not Available Not Available Vyvanse 40 mg capsule 06/24 completed Not Available Not Available Not Available diclofena c 1 % topical gel APPLY 1 TO 2 TOPICALL Y TO AFFECTED AREA ONCE DAILY DIRECTED NEEDED active Not Available Not Available No t Available OneTouch Andrea Lancets 33 gauge TEST ONCE DAILY 04/11 completed Not Available Not Available Not Available Latuda 40 mg tablet 03/16 completed Not Available Not Available Not Available Contour Next Test Strips test blood sugar once daily active Not Available Not Available No t Available Myrbetriq 50 mg tablet,ex tended release TAKE 1 TABLET BY MOUTH ONCE DAILY 06/15 completed Not Available Not Available Not Available Latuda 60 mg tablet 11/15 completed Not Available Not Available Not Available Jardiance 10 mg tablet Take 1 tablet every day by oral route. active Not Available Not Available No t Available Arnuity Ellipta 200 mcg/actua tion powder for inhalatio n INHALE 1 PUFF ONCE EVERY DAY 03/26 completed Not Available Not Available Not Available Incruse Ellipta 62.5 mcg/actua tion powder for inhalatio n INHALE 1 PUFF ONCE EVERY DAY 03/26 completed Not Available Not Available Not Available hydrocodo ne bitartrat e ER 15 mg capsule, oral only, extended rel 12 hr TAKE 1 CAPSULE EVERY 12 HOURS 02/15 completed Not Available Not Available Not Available Narcan 4 mg/actuat ion nasal spray 06/15 completed Not Available Not Available Not Available OneTouch Verio Flex Meter FOR TESTING 04/11 completed Not Available Not Available Not Available Vraylar 1.5 mg capsule TAKE 1 CAPSULE BY MOUTH ONCE DAILY 06/15 completed Not Available Not Available Not Available Austedo 9 mg tablet Take 1 tablet twice a day by oral route. active Not Available Not Available No t Available Austedo 12 mg tablet TAKE 1 TABLET BY MOUTH TWICE DAILY 04/10 completed Not Available Not Available Not Available Austedo 6 mg tablet TAKE 1 TABLET BY MOUTH TWICE DAILY WITH 9MG FOR TOTAL OF 15MG 06/15 completed Not Available Not Available Not Available Contour Next Glucose Meter kit TEST BLOOD SUGAR ONCE DAILY 04/10 completed Not Available Not Available Not Available brimonidi ne (PF) 06/27 completed Not Available Not Available Not Available Vitals Date Recorded Body height Body temperature Heart rate Oxygen saturation Oxygen saturation in Arterial blood by Pulse oximetry Systolic blood pressure Diastolic blood pressure Provider Name and Address Organization Details Last Updated DateTime 3 160.02 cm 97.4 [degF] 98 /min 95 % 95 % 130 mm[Hg] 80 mm[Hg] Daniella Youssef MA [facility] [employer] [facility] 3 14:47:41 Date Recorded Body height Body mass index (BMI) Body weight Body temperature Heart rate Oxygen saturation Oxygen saturation in Arterial blood by Pulse oximetry Systolic blood pressure Diastolic blood pressure Provider Name and Address Organization Details Last Updated DateTime 3 160.02 cm 58.5 kg/m2 402926. 48 g 96.5 [degF] 86 /min 98 % 98 % 132 mm[Hg] 84 mm[Hg] Tran Cooper MA [facility] [employer] [facility] 3 11:07:35 Date Recorded Body height Body mass index (BMI) Body weight Body temperature Heart rate Oxygen saturation Oxygen saturation in Arterial blood by Pulse oximetry Systolic blood pressure Diastolic blood pressure Provider Name and Address Organization Details Last Updated DateTime 4 160.02 cm 59.7 kg/m2 647108. 63 g 97.7 [degF] 80 /min 96 % 96 % 118 mm[Hg] 86 mm[Hg] Tran Cooper MA [facility] [employer] [facility] 4 16:24:21 Date Recorded Heart rate Respiratory rate Provider N noel and Address Organization Details Last Updated DateTime 06/15/2024 80 /min 15 /min Cory Ortiz MD [address] [place] [address], [id number], [facility] [employer] [facility] 06/15/2024 16:45:48 Date Recorded Body height Body mass index (BMI) Body weight Body temperature Heart rate Oxygen saturation Oxygen saturation in Arterial blood by Pulse oximetry Systolic blood pressure Diastolic blood pressure Provider Name and Address Organization Details Last Updated DateTime 4 160.02 cm 59.7 kg/m2 206451. 63 g 98.1 [degF] 72 /min 97 % 97 % 120 mm[Hg] 82 mm[Hg] Brittany Marcano MA [facility] [employer] [facility] 4 10:12:46 Date Recorded Heart rate Respiratory rate Provider N noel and Address Organization Details Last Updated DateTime 06/30/2024 72 /min 14 /min Cory Ortiz MD [address] [place], [address], [place] [employer] 06/30/2024 11:00:49 Date Recorded Body height Body mass index (BMI) Body weight Heart rate Oxygen saturation Oxygen saturation in Arterial blood by Pulse oximetry Systolic blood pressure Diastolic blood pressure Provider Name and Address Organization Details Last Updated DateTime 160.02 cm 59.3 kg/m2 379972. 44 g 82 /min 96 % 96 % 118 mm[Hg] 80 mm[Hg] Tran Cooper MA [employer] 10:57:15 Date Recorded Heart rate Respiratory rate Body temperature Provider Name and Address Organization Details Last Updated DateTime 08/23/2024 82 /min 15 /min 98.3 [degF] Cory Ortiz MD [address] [place], [address], [employer] 08/23/2024 11:13:01 Social History Question Answer Notes LastModified by Organization Details LastModified Time Tobacco Smoking Status Former Smoker quit 2018 Not Available [facility] 09/18/2022 03:05:15 Do You Have An Advance Directive? No [id number] Information not available 09/18/2022 What Is Your Level Of Alcohol Consumption? None [id number] Information not available 09/18/2022 Are You Blind Or Do You Have Difficulty Seeing? No [id number] Information not available 09/18/2022 What Is Your Level Of Caffeine Consumption? Moderate [id number] Information not available 09/18/2022 How Much Tobacco Do You Chew? None [id number] Information not available 09/18/2022 In The 14 Days Before Symptom Onset, Have You Had Close Contact With A Laboratory-confi rmed COVID-19 While That Case Was Ill? Yes Information not available 08/23/2024 In The 14 Days Before Symptom Onset, Have You Had Close Contact With A Person Who Is Under Investigation For COVID-19 While That Person Was Ill? No [id number] Information not available 09/18/2022 Are You Deaf Or Do You Have Serious Difficulty Hearing? No [id number] Information not available 09/18/2022 What Type Of Diet Are You Following? REGULAR [id number] Information not available 09/18/2022 Do You Or Have You Ever Used E-cigarettes Or Vape? Never Used Electronic Cigarettes MIGRATION.030 [id number] Information not available 09/18/2022 What Is The Highest Grade Or Level Of School You Have Completed Or The Highest Degree You Have Received? [id number] MIGRATION.030 [id number] Information not available 09/18/2022 Do You Have An Electrostatic Air Filter? No MIGRATION.0301 [id number] Information not available 09/18/2022 What Is Your Occupation? Disability MIGRATION.030 557000 Information not available 09/18/2022 Have There Been Any Changes To Your Family Or Social Situation? No MIGRATION.0301 822369 Information not available 09/18/2022 What Is The Fluoride Status Of Your Home? Unknown MIGRATION.0301 420235 Information not available 09/18/2022 When Did You Quit Smoking? 1-5yearssincelastci kristenette MIGRATION.030 932385 Information not available 09/18/2022 Are There Any Guns Present In Your Home? No MIGRATION.0301 975614 Information not available 09/18/2022 Do You Have A Humidifier? No MIGRATION.0301 [id number] Information not available 09/18/2022 Do You Use Insect Repellent Routinely? No MIGRATION.0301 947711 Information not available 09/18/2022 Where Do You Live? 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 No MIGRATION.0301 188128 Information not available 09/18/2022 What Was The Date Of Your Most Recent Tobacco Screening? 08/23/2024 Information not available 08/23/2024 What Is Your Current Pack Years? 10-19packyears [email or web address] Information not available 11/11/2022 Do You Have Any Pets? Yes MIGRATION.0301 365754 Information not available 09/18/2022 What Is Your Relationship Status? MIGRATION.0301 397875 Information not available 09/18/2022 Do You Use Your Seat Belt Or Car Seat Routinely? Yes MIGRATION.0301 579442 Information not available 09/18/2022 Do You Have Smoke And Carbon Monoxide Detectors In Your Home? Yes MIGRATION.0301 140578 Information not available 09/18/2022 Are You Passively Exposed To Smoke? No MIGRATION.0301 507725 Information not available 09/18/2022 Do You Or Have You Ever Used Smokeless Tobacco? Never Used Smokeless Tobacco MIGRATION.0301 598753 Information not available 09/18/2022 Are There Any Smokers In Your House? No MIGRATION.0301 528475 Information not available 09/18/2022 How Much Tobacco Do You Smoke? No MIGRATION.0301 458789 Information not available 09/18/2022 What Types Of Sporting Activities Do You Participate In? None MIGRATION.0301 169816 Information not available 09/18/2022 Do You Feel Stressed (tense, Restless, Nervous, Or Anxious, Or Unable To Sleep At Night)? [id number] MIGRATION.0301 761780 Information not available 09/18/2022 Do You Use Any Illicit Or Recreational Drugs? Yes MIGRATION.0301 545102 Information not available 09/18/2022 Do You Use Sunscreen Routinely? No MIGRATION.0301 742472 Information not available 09/18/2022 Has Tobacco Cessation Counseling Been Provided? No MIGRATION.0301 005819 Information not available 09/18/2022 Have You Recently Traveled Abroad? No MIGRATION.0301 727313 Information not available 09/18/2022 Have You Used IV Drugs? No MIGRATION.0301 837831 Information not available 09/18/2022 Do You Have Any Dietary Restrictions? No MIGRATION.0301 377103 Information not available 09/18/2022 Do You Or Have You Ever Used Any Other Forms Of Tobacco Or Nicotine? No MIGRATION.0301 976952 Information not available 09/18/2022 Sex: Female Functional Status Question Answer Note LastModified by Organizat ion Details LastModified Time Do you have difficulty walking or climbing stairs? Yes MIGRATION.[id number] 6 Information not available 09/18/2022 Do you have difficulty doing errands alone? Yes MIGRATION.[id number] 6 Information not available 09/18/2022 Do you have difficulty dressing or bathing? No MIGRATION.353084157 6 Information not available 09/18/2022 What is your exercise level? None MIGRATION.[id number] 6 Information not available 09/18/2022 Mental Status Question Answer Note LastModified by Organizat ion Details LastModified Time Do you have difficulty concentrating, remembering or making decisions? No MIGRATION.[id number] 6 Information not available 09/18/2022 Family History Relationship Description Onset Age of this Age Resolved Age Notes LastModified by Organization Details LastModified Time Mother Heart disease MIGRATION.196 [id number] Not available 09/18/2022 03:12:38 Mother Diabetes mellitus MIGRATION.109 [id number] Not available 09/18/2022 03:12:38 Mother Cerebrovascu lar accident MIGRATION.043 [id number] Not available 09/18/2022 03:12:38 Mother Pulmonary embolism 70 MIGRATION.585 [id number] Not available 09/18/2022 03:12:38 Father Heart disease MIGRATION.934 [id number] Not available 09/18/2022 03:12:38 Father Diabetes mellitus MIGRATION.591 [id number] Not available 09/18/2022 03:12:38 Father Kidney disease MIGRATION.595 [id number] Not available 09/18/2022 03:12:38 Maternal Aunt Malignant tumor of breast MIGRATION.306 [id number] Not available 09/18/2022 03:12:38 Medical History Condition Response NERVE DISEASE N BLINDNESS N RHEUMATIC FEVER N KIDNEY STONES N BLADDER PROBLEMS N OTHER # 1 Y POLIO N LUNG DISEASE/DISORDER N RADIATION / CHEMOTHERAPY N COPD N Other # 2 N BLOOD DISEASES N SURGERY N EAR OR HEARING PROBLEMS N MUMPS N BOWEL PROBLEMS N DEPRESSION (INCLUDING POST ) N STROKE/TIA N ULCERS N BENIGN PROSTATIC HYPERPLASIA N MEASLES N MYOCARDIAL INFARCTION N OBESITY Y GERD/NAUSEA N ANEURYSM N URINARY/BLADDER/KIDNEY PROBLEMS Y INPATIENT PSYCH CARE N CORONARY ARTERY DISEASE (CAD) N ADDICTION CONCERNS N Impotence N ENDOMETRIOSIS N USE OF BLOOD THINNERS N SKIN PROBLEMS N GASTROINTESTINAL DISORDER N PERIPHERAL VASCULAR DISEASE N MUSCLE,JOINT OR BONE PROBLEMS N GASTROINTESTINAL BLEEDING N BLOOD CLOTS N ASTHMA Y CATARACTS N ERECTILE DYSFUNCTION N VARICOSITIES N GI PROBLEMS N Low Testosterone N INFERTILITY N AIDS/HIV N LIVER DISEASE N MALE HYPOGONADISM N HYPERTENSION Y Deficiency N ANXIETY DISORDER Y BLOOD TRANSFUSION N ANEMIA/BLOOD DISORDER N CHRONIC EAR INFECTIONS N BRONCHITIS N TUBERCULOSIS N GLAUCOMA N FOOT PROBLEM Y DIVERTICULITIS N SLEEP APNEA N CHICKENPOX N INFECTIOUS DISEASE N PROSTATE N HEART ARRHYTHMIA N INSOMNIA N HIGH CHOLESTEROL / HYPERLIPIDEMIA Y EYE PROBLEMS N HYPERTHYROIDISM N NEUROLOGICAL PROBLEMS N EDEMA N CHRONIC PAIN SYNDROME N HYPOTHYROIDISM N CONSTIPATION N CAROTID BLOCKAGE N BACK / NECK PROBLEMS N HAVE YOU BEEN HOSPITALIZED OR SEEN IN [facility] IN THE PAST YEAR ? N ATHEROSCLEROSIS N BREAST PROBLEMS N DIALYSIS N ECZEMA N OSTEOPOROSIS Y ARTHRITIS Y APPENDICITIS N DIABETES, TYPE Y BAD TEETH N ENT N HEARTBURN / REFLUX N AUTISM SPECTRUM DISORDER (ASD) N HEPATITIS / LIVER DISEASE N PULMONARY DISEASE N GOUT N SLEEP DISORDER N ALZHEIMER'S DISEASE N Brain Problems N DEMENTIA N HERPES N SEIZURES/EPILEPSY N HEADACHES/MIGRAINES N VASCULAR DISEASE N PACEMAKER N Blood Disorder N DIZZINESS N HEART DISEASE/HEART PROBLEMS N KIDNEY DISEASE N MULTIPLE SCLEROSIS N CANCER: SPECIFY N CARDIAC ARRHYTHMIA N ANESTHESIA COMPLICATIONS N ATRIAL FIBRILLATION N Gall Stones N PULMONARY EMBOLISM N AUTOIMMUNE DISEASE N Gynecological History Statement/Question Response Date of Last Colonoscopy 09/05/2021 Date of Last Mammogram 01/15/2021 Obstetrics History GPAL:G 0 P 0 0 0 0 Immunizations Vaccine Type Date Status Note Provider Nam e and Address Organization Details Recorded Time COVID-19, mRNA, LNP-S, PF, 100 mcg/0.5mL dose or 50 mcg/0.25mL dose 12/16/2020 completed Not Available [facility] 3 05:19:59 COVID-19, mRNA, LNP-S, PF, 100 mcg/0.5mL dose or 50 mcg/0.25mL dose 11/17/2020 completed Not Available [facility] 3 05:19:59 Influenza, split virus, quadrivalent, PF 06/07/2020 completed Not Available [facility] 3 05:19:59 Influenza, MDCK, quadrivalent, PF 08/07/2018 completed Not Available [facility] 3 05:19:59 Influenza, split virus, quadrivalent, PF 06/02/2017 completed Not Available [facility] 3 05:19:59 Past Encounters Encounter ID Performer Location Encounter Start Date Encounter Closed Date Diagnosis/Indication Diagnosis SNOMED-CT Code Diagnosis ICD10 Code Diagnosis Note [id number] [facility] Internal [facility] [address] [place], [place] [address]e., [facility] [address] [place] [address] 10/04/2020 00:00:00 10/15/2020 18:50:39 [id number] [facility] Internal Med [facility] [address] [place], [place] [address] [address] [address] 01/10/2021 00:00:00 01/12/2021 15:52:07 [id number] [facility] [place] [address] [place] [address] 02/15/2021 00:00:00 02/15/2021 13:29:53 [id number] [facility] [place] [address] [place] [address] 03/19/2021 00:00:00 03/19/2021 11:03:18 [id number] [facility] Internal Med [facility] [address] [place], [place] [address] [address] [address] 04/11/2021 00:00:00 05/06/2021 12:43:52 [id number] [facility] [address] [address] 04/16/2021 00:00:00 04/16/2021 10:48:58 [id number] [facility] [place] [address] [address] 04/24/2021 00:00:00 04/24/2021 11:49:59 [id number] [facility] [place] [address] [address] 06/26/2021 00:00:00 06/26/2021 14:39:09 [id number] [facility] Internal Med [address] [address] 07/04/2021 00:00:00 07/21/2021 15:56:56 [id number] [facility] [address] [address] 10/10/2021 00:00:00 10/22/2021 21:46:49 [id number] [facility] Internal Med [facility]ia aleman [address] [facility] [place] [address] 11/08/2021 00:00:00 11/08/2021 20:57:[id number] [facility] [address] [place] [address] 04/17/2022 00:00:00 04/17/2022 12:36:26 [id number] [facility] [address] [address] 05/07/2022 00:00:00 05/07/2022 15:43:14 [id number] [facility] Internal Med [facility] [address] [address] 06/24/2022 00:00:00 06/24/2022 22:34:12 [id number] Maykel Lindsay MD [facility] Internal Med [facility] [address] [address] 10/14/2022 14:09:16 10/14/2022 15:01:13 Pain of left hip joint 4146917924 98738 M25.552 [id number] Maykel Lindsay MD [facility] Internal Med [facility] [address] [address] 11/11/2022 14:15:44 11/11/2022 15:05:09 Adult health examination 080093857 Z00.00 Screening for disorder 407675699 Z13.9 Essential hypertension 34103620 I10 Type 2 cecilio betes mellitus without complication 886225542 E11.9 Urinary tr act infectious disease 45646169 N39.0 Pain of bi lateral knee joints 1824775732 21605 M25.561 [id number] Maykel Lindsay MD [facility] Internal Med [facility] [address] [place] [address] 03/10/2023 14:39:07 03/10/2023 15:08:58 Essential hypertension 92453749 I10 Type 2 cecilio betes mellitus without complication 914201997 E11.9 Pain of le ft knee joint 1252599130 96708 M25.562 Body mass index 40+ - severely obese 156595206 Z68.41 Asthma 439747437 J45.90 9 Venous stasis 06546452 I 87.8 [id number] Maykel Lindsay MD [facility] Internal Med [address] [address] 07/04/2023 10:37:33 07/04/2023 11:13:52 Essential hypertension 88705016 I10 Type 2 cecilio betes mellitus without complication 851090633 E11.9 Asthma 319351317 J45.90 9 Body mass index 40+ - severely obese 141471249 Z68.41 Hypocholesterolemia 6133 6008 E78.6 Morbid obesity 124865394 E66.01 Venous stasis 41233940 I 87.8 [id number] Cory Ortiz MD [facility] [address] [address] 06/15/2024 15:59:05 07/19/2024 11:29:06 Chronic kidney disease 022570300 N18.9 Dyspnea on exertion 6084 5006 R06.09 Obstructiv e sleep apnea syndrome 31714813 G47.33 G47.30 G47.61 G47.36 [id number] Cory Ortiz MD [facility] [address] [address] 06/30/2024 09:58:26 06/30/2024 16:32:53 Chronic kidney disease 061437189 N18.9 Dyspnea on exertion 6084 5006 R06.09 Obstructiv e sleep apnea syndrome 17023070 G47.33 G47.30 G47.61 G47.36 Atrial fibrillation 0602 6007 I48.91 [id number] MD MATT [facility] [address] [address] 08/23/2024 10:37:00 08/23/2024 12:07:37 Obstructive sleep apnea syndrome 68532269 G47.33 Mild persi stent asthma 319019244 J45.30 Health Concerns Section Related Observation LastModified by Organization Detai ls LastModified Time None Recorded Concern Status LastModified by Organization Details LastModified Time None Recorded Advance Directives Directive N: Payers Encounter Date Sequence Insurance Name Policy Number Policy Walden Covered Member ID Walden Member ID Guarantor Name 03/10/2023 1 [place] Kathleen Oreilly [id number] Kathleen Sevilla Oreilly 03/10/2023 2 [place] Kathleen Oreilly [id number] Kathleen Oreilly 07/04/2023 1 [place] Oreilly [id number] Kathleen Oreilly 07/04/2023 2 [place] Kathleen Oreilly [id number] Kathleen Oreilly 06/15/2024 1 [place] Oreilly [id number] Kathleen Oreilly 06/15/2024 2 [facility] (MEDICAID HMO) [id number] Kathleen Oreilly [id number] Kathleen Oreilly 06/30/2024 1 [place] Kathleen Oreilly [id number] Kathleen Oreilly 06/30/2024 2 [place] OR MEDICARE REPLACEMENT PRIMARY) Kathleen Oreilly [id number] Kathleen Sevilla Oreilly 08/23/2024 1 [place] Kathleen Oreilly [id number] Kathleen Oreilly 08/23/2024 2 [place] REPLACEMENT PRIMARY) Kathleen Oreilly [id number] Kathleen Oreilly Notes Date Note Type Note Provider Name and Address Organization Details Recorded Time 03/10/2023 text/html Hypertension no headache or dizziness diabetes needs blood work done she got pain in her left knee and needs to have that x-rayed she fell a couple weeks ago but she has been walking morbid obesity still does not want to do anything about that. Venous stasis still bothers Maykel Lindsay MD [address], [place], [address], [facility] 03/10/2023 15:38:01 07/04/2023 text/html 1. She was going to the bathroom went to wipe herself fell forward hit her head with the emergency room CT head and CT neck negative no headache no neck pain at this time. 2. Hypertension no chest pain no palpitations. 3. Diabetes does not check her sugars like she should and she needs to have blood work done to evaluate that. 4. Asthma seems to be doing fine needs refill on albuterol no excessive use 5. Morbid obesity she has continuously refused any medication treatment surgical evaluation for this Maykel Lindsay MD [address], [place], [address], [employer] 07/05/2023 15:24:46 06/15/2024 text/html Primary care/Ref erring provider: Evens Crowell, MDPatient is here to go over her shortness of breath evaluation/management.I nitial development of shortness of breath: 2012Duration of shortness of breath: 12 yearsCondition of shortness of breath: stableTiming of shortness of breath: night timeFrequency: up to 4 times a dayLimits activities: yesAggravating factors: walkingAlleviating factors: restModified [employer] [place] [employer] ([employer]C) Dyspnea Scale - Grade 2Grade 0 I only get breathless with strenuous exercise .Grade 1 I get short of breath when hurrying on the level or walking up a slight hill .Grade 2 I walk slower than people of the same age on the level because of breathlessness or have to stop for breath when walking at my own pace on the level .Grade 3 I stop for breath after walking about 100 yards or after a few minutes on the level .Grade 4 I am too breathless to leave the house or I am breathless when dressing .Treatment history:albuterol HFA as needed since lbuterol nebs as needed since 2013Other symptoms:Drooling: noDysarthria: noDysphagia: noWeak mastication: noFacial weakness: noNasal speech: noProtruding tongue: noProductive cough: noWheezing: noChest tightness: yesOrthopnea: noFrequent throat clearing or swallowing: noPalpitations: noHeartburn: noEdema: yesEnvironmental exposures:Nicotine smoke: 07/23 ppd 7451-0191 = 5 pack yearsPaint: noDye: noDust mites: yesMold: yesDamp basement: noWood burning stove: noAnimal dander: dogs and catsCockroaches: noPollen: yesArsenic: noAsbestos: noBeryllium: noCadmium: noChromium: noCoal smoke: noDiesel fumes: noNickel: noSilica: noSoot: noHer [facility] diagnostic sleep study on 04/16/17 showed a PLMI = 10. She has CKD.At home, the patient sleeps from 1 am to 8 am and wakes up without an alarm.Snoring: heavy, since 1970s.Snorting: noChoking: noCoughing: noGasping: noGagging: noSighing: noWitnessed apnea: yesTwitching or jerking of leg(s), arm(s), body, head: yesTeeth grinding: noTeeth clenching: noSleeptalking: noSleepwalking: noSleep crying: yesBedwetting: noTongue/lip/gum/cheek biting: noSleeping with open mouth: yesSleep paralysis: noHypnagogic hallucinations: noHypnopompic hallucinations: noVivid dreams: yesDifficulty with sleep onset: yesDifficulty with sleep maintenance: yesSleep interruptions: dreamsPatient wakes up with: fatigue, xerostomia, sore throat, hoarse voice, headache, cognitive impairment, mobility impairment, dexterity impairmentDaytime cataplexy: noMorning hypersomnolence: noAfternoon hypersomnolence: yesCaffeine sources in diet: soda 6 bottles per dayAssociated medical and psychiatric conditions:Congestive heart failure: noCoronary artery disease: noMyocardial infarction: noHypertension: yesStroke: noBronchial asthma: noChronic obstructive pulmonary disease: noDepression: yesBipolar disorder: yesAnxiety: yesPanic disorder: noPosttraumatic stress disorder: noAttention deficit and hyperactivity disorder: noObsessive Compulsive disorder: noSchizophrenia: noSchizoaffective disorder: noPersonality disorder: noChronic analgesic use: noChronic sedative/hypnotic use: noEPWORTH SLEEPINESS SCALE (ESS)CHANCE OF DOZING SCORE0 = would never doze1 = slight chance of dozing2 = moderate chance of dozing3 = high chance of dozingSITUATION AND CHANCE OF DOZINGSitting and reading - 3Watching television - 3Sitting inactive in a public place (e.g. a theater or meeting) - 3As a passenger in a car for an hour without a break - 2Lying down to rest in the afternoon when circumstances permit - 3Sitting and talking to someone - 1Sitting quietly after lunch without alcohol - 2In a car, while stopped for a few minutes in the traffic - 2TOTAL SCORE 19Subjectively, patient has a high chance of dozing. Cory Ortiz MD [address] [place] [address], [place] [address], [place], [address], [place] [facility] [email or web address] 06/15/2024 16:59:09 06/30/2024 text/html Primary care/Ref erring provider: Evens Crowell, MDPatient is here to go over her 2-D echocardiogram as part of her shortness of breath evaluation/management.I nitial development of shortness of breath: 2012Duration of shortness of breath: 12 yearsCondition of shortness of breath: stableTiming of shortness of breath: night timeFrequency: up to 3 times a dayLimits activities: yesAggravating factors: walkingAlleviating factors: restModified [employer] [place] [employer] ([employer]C) Dyspnea Scale - Grade 2Grade 0 I only get breathless with strenuous exercise .Grade 1 I get short of breath when hurrying on the level or walking up a slight hill .Grade 2 I walk slower than people of the same age on the level because of breathlessness or have to stop for breath when walking at my own pace on the level .Grade 3 I stop for breath after walking about 100 yards or after a few minutes on the level .Grade 4 I am too breathless to leave the house or I am breathless when dressing .Treatment history:albuterol HFA as needed since lbuterol nebs as needed since 2013Other symptoms:Drooling: noDysarthria: noDysphagia: noWeak mastication: noFacial weakness: noNasal speech: noProtruding tongue: noProductive cough: noWheezing: noChest tightness: yesOrthopnea: noFrequent throat clearing or swallowing: noPalpitations: noHeartburn: noEdema: yesEnvironmental exposures:Nicotine smoke: 07/23 ppd 7424-7510 = 5 pack yearsPaint: noDye: noDust mites: yesMold: yesDamp basement: noWood burning stove: noAnimal dander: dogs and catsCockroaches: noPollen: yesArsenic: noAsbestos: noBeryllium: noCadmium: noChromium: noCoal smoke: noDiesel fumes: noNickel: noSilica: noSoot: noHer [facility] diagnostic sleep study on 04/16/17 showed a PLMI = 10. She has CKD.At home, the patient sleeps from 1 am to 8 am and wakes up without an alarm.Snoring: heavy, since 1970s.Snorting: noChoking: noCoughing: noGasping: noGagging: noSighing: noWitnessed apnea: yesTwitching or jerking of leg(s), arm(s), body, head: yesTeeth grinding: noTeeth clenching: noSleeptalking: noSleepwalking: noSleep crying: yesBedwetting: noTongue/lip/gum/cheek biting: noSleeping with open mouth: yesSleep paralysis: noHypnagogic hallucinations: noHypnopompic hallucinations: noVivid dreams: yesDifficulty with sleep onset: yesDifficulty with sleep maintenance: yesSleep interruptions: dreamsPatient wakes up with: fatigue, xerostomia, sore throat, hoarse voice, headache, cognitive impairment, mobility impairment, dexterity impairmentDaytime cataplexy: noMorning hypersomnolence: noAfternoon hypersomnolence: yesCaffeine sources in diet: soda 6 bottles per dayAssociated medical and psychiatric conditions:Congestive heart failure: noCoronary artery disease: noMyocardial infarction: noHypertension: yesStroke: noBronchial asthma: noChronic obstructive pulmonary disease: noDepression: yesBipolar disorder: yesAnxiety: yesPanic disorder: noPosttraumatic stress disorder: noAttention deficit and hyperactivity disorder: noObsessive Compulsive disorder: noSchizophrenia: noSchizoaffective disorder: noPersonality disorder: noChronic analgesic use: noChronic sedative/hypnotic use: noEPWORTH SLEEPINESS SCALE (ESS)CHANCE OF DOZING SCORE0 = would never doze1 = slight chance of dozing2 = moderate chance of dozing3 = high chance of dozingSITUATION AND CHANCE OF DOZINGSitting and reading - 3Watching television - 3Sitting inactive in a public place (e.g. a theater or meeting) - 2As a passenger in a car for an hour without a break - 2Lying down to rest in the afternoon when circumstances permit - 3Sitting and talking to someone - 3Sitting quietly after lunch without alcohol - 3In a car, while stopped for a few minutes in the traffic - 3TOTAL SCORE 22Subjectively, patient has a high chance of dozing. Cory Ortiz MD [address] [place] [address], [address], [place] [facility] 06/30/2024 11:01:13 08/23/2024 text/html Primary care/Ref erring provider: Evens Crowell, MDPatient is here to go over her methacholine challenge testing as part of her shortness of breath evaluation/management.I nitial development of shortness of breath: 2012Duration of shortness of breath: 13 yearsCondition of shortness of breath: stableTiming of shortness of breath: night timeFrequency: up to 2 times a dayLimits activities: yesAggravating factors: walkingAlleviating factors: restModified [employer] [employer] ([employer]) Dyspnea Scale - Grade 2Grade 0 I only get breathless with strenuous exercise .Grade 1 I get short of breath when hurrying on the level or walking up a slight hill .Grade 2 I walk slower than people of the same age on the level because of breathlessness or have to stop for breath when walking at my own pace on the level .Grade 3 I stop for breath after walking about 100 yards or after a few minutes on the level .Grade 4 I am too breathless to leave the house or I am breathless when dressing .Treatment history:albuterol HFA as needed since lbuterol nebs as needed since 2013-2023Other symptoms:Drooling: noDysarthria: noDysphagia: noWeak mastication: noFacial weakness: noNasal speech: noProtruding tongue: noProductive cough: noWheezing: noChest tightness: yesOrthopnea: noFrequent throat clearing or swallowing: noPalpitations: noHeartburn: noEdema: yesEnvironmental exposures:Nicotine smoke: 07/23 ppd [id number] = 5 pack yearsPaint: noDye: noDust mites: yesMold: yesDamp basement: noWood burning stove: noAnimal dander: dogs and catsCockroaches: noPollen: yesArsenic: noAsbestos: noBeryllium: noCadmium: noChromium: noCoal smoke: noDiesel fumes: noNickel: noSilica: noSoot: noDuring the [facility] diagnostic sleep study on 04/16/17, PLMI = 10. She has CKD. During the [facility] split night sleep study on 08/18/24, sleep onset = 3.5 minutes, REM onset = 79.5 minutes, AHI = 18, REM AHI = 47, PLMI = 0.0. The patient uses a ResMed AirSense 11 autoset unit with heated humidification. The patient does not need the ramp to start low and go up slowly on the pressure. There is some xerostomia in a.m. There is no hose/mask condensation with water. The patient wears a ResMed small AirFit F30 full face mask without chin strap. There is no claustrophobia, no nostril/nose bridge irritation, no facial rash, no facial numbness, no nosebleeding. The patient feels more refreshed upon waking and daytime alertness is improved. Energy levels are sustained for the remainder of the day.At home, the patient sleeps from 1 am to 8 am and wakes up without an alarm.Snoring: heavy, since 1970s.Snorting: noChoking: noCoughing: noGasping: noGagging: noSighing: noWitnessed apnea: yesTwitching or jerking of leg(s), arm(s), body, head: yesTeeth grinding: noTeeth clenching: noSleeptalking: noSleepwalking: noSleep crying: yesBedwetting: noTongue/lip/gum/cheek biting: noSleeping with open mouth: yesSleep paralysis: noHypnagogic hallucinations: noHypnopompic hallucinations: noVivid dreams: yesDifficulty with sleep onset: yesDifficulty with sleep maintenance: yesSleep interruptions: dreamsPatient wakes up with: fatigue, xerostomia, sore throat, hoarse voice, headache, cognitive impairment, mobility impairment, dexterity impairmentDaytime cataplexy: noMorning hypersomnolence: noAfternoon hypersomnolence: yesCaffeine sources in diet: soda 6 bottles per dayAssociated medical and psychiatric conditions:Congestive heart failure: noCoronary artery disease: noMyocardial infarction: noHypertension: yesStroke: noBronchial asthma: noChronic obstructive pulmonary disease: noDepression: yesBipolar disorder: yesAnxiety: yesPanic disorder: noPosttraumatic stress disorder: noAttention deficit and hyperactivity disorder: noObsessive Compulsive disorder: noSchizophrenia: noSchizoaffective disorder: noPersonality disorder: noChronic analgesic use: noChronic sedative/hypnotic use: noEPWORTH SLEEPINESS SCALE (ESS)CHANCE OF DOZING SCORE0 = would never doze1 = slight chance of dozing2 = moderate chance of dozing3 = high chance of dozingSITUATION AND CHANCE OF DOZINGSitting and reading - 3Watching television - 3Sitting inactive in a public place (e.g. a theater or meeting) - 3As a passenger in a car for an hour without a break - 3Lying down to rest in the afternoon when circumstances permit - 3Sitting and talking to someone - 0Sitting quietly after lunch without alcohol - 3In a car, while stopped for a few minutes in the traffic - 0TOTAL SCORE 18Subjectively, patient has a high chance of dozing. Cory Ortiz MD [address] [place] [address], [place], [address], [place] - [facility] 08/23/2024 11:32:44 OBGyn Episode No OBEpisode recorded.
--- OUTSIDE RECORDS SUMMARY | 2024-10-08 20:25 | XMS_ITS | Encounter Summary ---
Author Organization [facility] Address [address] [place] [address] Care Team Providers Care Retort Furnace Helper Name Role Phone Massiel Munoz MD Primary Care Provider + Encounter Details Date Type Department Care Team (Late st Contact Info) Description 03/01/1999 Outpatient Historical [facility] Internal Medicine [address] [address] Massiel Munoz MD [facility] [address] [address] Social History Tobacco Use Types Packs/Day Years Used Date Smoking Tobacco: Never Assessed Comments Unknown Sex and Gender Information Value Date Recorded Sex Assigned at Not on file 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
--- OUTSIDE RECORDS SUMMARY | 2024-10-08 20:25 | XMS_ITS | Encounter Summary ---
Author Organization [facility] Address 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
--- OUTSIDE RECORDS SUMMARY | 2024-10-08 20:25 | XMS_ITS | Encounter Summary ---
Author Organization [facility] Address 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
--- OUTSIDE RECORDS SUMMARY | 2024-10-08 20:25 | XMS_ITS | Clinical Summary ---
Author Organization [facility] Address [address] [place] [address] Care Team Providers Care Plastering Supervisor Name Role Phone Maykel Lindsay MD Primary Care Provider [phone] Source Comments [facility],non-[facility] Affiliates and Associated Physician Practices is amultiple site organization consisting of ambulatory clinics and hospital sitesin [place], [place], [place] and [place]. This disclosure is being madepursuant to the Care Everywhere program and may not contain all information available regarding this patient. Last updated 18.[facility] [place] Allergies Active Allergy Reactions Criticality Noted Date Comments Latex Rash Medium 02/24/2020 Morphine Itching 10/02/2020 Sulfa Drugs Rash Medium 02/24/2020 Vancomycin Rash Medium 02/24/2020 Medications * Be aware that medications may not be up to date on this document. Alwaysverify current medications with the patient. Medication Sig Dispensed Refills Start Date End Date Status atorvastatin (LIPITOR) 10 MG tablet Take 10 mg by mouth Activ e busPIRone (BUSPAR) 10 MG tablet Take 10 mg by mouth 3 times daily Active fluticasone propionate (FLONASE) 50 MCG/ACT nasal spray [place] 1-2 sprays into the nose once daily Active gabapentin (NEURONTIN) 600 MG tablet Take 600 mg by mouth at bedtime Active glimepiride (AMARYL) 1 MG tablet Take 1 mg by mouth Active lamoTRIgine (LAMICTAL) 100 MG tablet Take 100 mg by mouth once daily Active megestrol (MEGACE) 40 MG tablet Take 40 mg by mouth once daily 02/26/2018 Active metoprolol tartrate (LOPRESSOR) 25 MG tablet Take 25 mg by mouth 2 times daily Active mirabegron ER 24hr (MYRBETRIQ) 50 MG tablet Take 50 mg by mouth once daily Active SITagliptin (JANUVIA) 100 MG tablet Take 50 mg by mouth once daily Active brimonidine (ALPHAGAN P) 0.15 % ophthalmic solution 1 drop by Ophthalmic route 2 times daily Active buPROPion XL 24hr (WELLBUTRIN-XL) 150 MG tablet Take 150 mg by mouth once daily Active vitamin D, ergocalciferol, (DRISDOL) 1.25 MG (63827 UT) capsule Take 50,000 Units by mouth every 7 days Active acetaminophen (TYLENOL) 500 MG tablet Take 1 tablet by mouth every 4 hours as needed Maximum allowable Acetaminophen amount = 4 Grams (4000 mg) / 24 hours. 03/04/2020 Active albuterol HFA (PROVENTIL;VENTOLIN ;PROAIR) 108 (90 Base) MCG/ACT inhaler Inhale 2 puffs by mouth Active VENTOLIN HFA 108 (90 Base) MCG/ACT inhaler INHALE 2 PUFFS FOUR TIMES DAILY NEEDED 12/01/2019 Active cariprazine (VRAYLAR) 1.5 MG capsule Vraylar 1.5 mg capsule TAKE 1 CAPSULE BY MOUTH ONCE DAILY Active A[place]EDO 12 MG tablet Take 12 mg by mouth 2 times daily 09/26/2020 Active famotidine (PEPCID) 20 MG tablet famotidine 20 mg tablet TAKE 1 TABLET BY MOUTH ONCE DAILY Active latanoprost (XALATAN) 0.005 % ophthalmic solution latanoprost 0.005 % eye drops INSTILL 1 DROP INTO BOTH EYES AT BEDTIME DIRECTED Active naloxone HCl (NARCAN) 4 MG/0.1ML nasal spray Narcan 4 mg/actuation nasal spray Active Active Problems Problem Noted Date Diagnosed Date 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 Never 02/24/2020 Average Number of Drinks Not on file 020 Frequency of Binge Drinking Not on file 0812/2019 Sex and Gender Information Value Date Recorded Sex Assigned at Not on file Gender Identity Not on file Sexual Orientation Not on file Last Filed Vital Signs Vital Sign Reading Time Taken Comments Blood Pressure 152/91 10/02/2020 2:23 PM CDT Pulse 102 10/02/2020 2:23 PM CDT Temperature 36.1 C (97 F) 10/02/2020 2:23 PM CDT Respiratory Rate 20 03/04/2020 7:50 AM CDT Oxygen Saturation 100% 10/02/2020 2:23 PM CDT Inhaled Oxygen Concentration - - Weight 129.3 kg (285 lb) 04/03/2020 11:25 AM CDT Height 162.6 cm (5' 4 ) 10/02/2020 2:23 PM CDT Body Mass Index 48.92 04/03/2020 11:25 AM CDT Plan of Treatment Health Maintenance Due Date Last Done Comments COLOGUARD (AGES 45-75) - COLON CA SCREENING 1968 COLON MONITORING 1968 COLONOSCOPY - COLON CA SCREENING 1968 CT COLONOGRAPHY - COLON CA SCREENING 1968 Colorectal Cancer Screening 1968 FIT - COLON CA SCREENING 1968 FLEX SIG - COLON CA SCREENING 1968 MEDICARE AWV 12 MONTHS 1968 PAP SMEAR 1968 HIV SCREENING 09/20/1983 HEPATITIS C SCREENING 09/15/1986 DTAP/TDAP/TD VACCINES (1 - Tdap) 09/20/1987 HEPATITIS B VACCINE (1 of 3 - 19+ 3-dose series) 09/20/1987 MAMMOGRAM 10/29/2017 10/30/2015 PNEUMOCOCCAL VACCINE 50+ (1 of 1 - PCV) 2018 ZOSTER VACCINE (1 of 2) 2018 SCREENING FOR DIABETES 03/04/2023 0, 03/04/2020, 03/04/2020, Additional history exists COVID-19 VACCINE (1 - season) 2024 INFLUENZA VACCINE (#1) 2024 0, 08/07/2018, 06/02/2017 DEPRESSION SCREENING 07/21/2024 HIB VACCINE Aged Out No longer eligi ble based on patient's age to complete this topic HPV VACCINE Aged Out No longer eligi ble based on patient's age to complete this topic MENINGOCOCCAL (Group B) VACCINE SHARED DECISION-MAKING Aged Out No longer eligible based on patient's age to complete this topic MENINGOCOCCAL GROUPS A/C/Y/W VACCINE Aged Out No longer eligible based on patient's age to complete this topic Procedures Procedure Name Priority Date/Time Associated Diagnosis Comments GLUCOSE - POINT OF CARE Routine 03/04/2020 6:46 AM CDT from Last 3 Months or Most Recently Relevant to Health Maintenance Results * GLUCOSE - POINT OF CARE (03/04/2020 6:46 AM CDT) Glucose WB/POC 89 70 - 115 mg/dL 03/04/2020 7:[address] [facility] Specimen Type Arterial/C apillary 03/04/2020 7:07 AM CDT [facility] Blood BLOOD SPECIMEN / Unknown 03/04/2020 6:46 AM CDT 03/04/2020 7:07 AM CDT Nesha Schrader MD LAB - POINT OF CARE ORDERABLES [address] [address] [phone] from Last 3 Months or Most Recently Relevant to Health Maintenance Advance Directives * Full Code (Latest Code Status on File) Date Activated Date Inactivated Comments 02/25/2020 12:06 AM 03/04/2020 2:20 PM Care Teams Plastering Supervisor Relationship Specialty Start Date End Date Maykel Lindsay MD PCP - General Internal Medicine 02/24/20
--- OUTSIDE RECORDS SUMMARY | 2024-10-08 20:26 | XMS_ITS | Encounter Summary ---
Author Organization [facility] Address 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
--- OUTSIDE RECORDS SUMMARY | 2024-10-08 20:26 | XMS_ITS | Encounter Summary ---
Author Organization [facility] Address 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
--- OUTSIDE RECORDS SUMMARY | 2024-10-08 20:26 | XMS_ITS | Encounter Summary ---
Author Organization [facility] Address 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
--- OUTSIDE RECORDS SUMMARY | 2024-10-08 20:26 | XMS_ITS | Encounter Summary ---
Author Organization [facility] Address [address] [place] [address] Care Team Providers Care Vendette Name Role Phone Massiel Munoz MD Primary Care Provider + Encounter Details Date Type Department Care Team (Late st Contact Info) Description 06/16/2000 Outpatient Historical [facility] Internal Medicine [facility] and [address] [place] [address] Fabiola Knight MD [address] [facility] [address] [place] [address] Social History Tobacco Use Types Packs/Day Years Used Date Smoking Tobacco: Never Assessed Comments Unknown Sex and Gender Information Value Date Recorded Sex Assigned at Not on file 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
--- OUTSIDE RECORDS SUMMARY | 2024-10-08 20:26 | XMS_ITS | Encounter Summary ---
Author Organization [facility] Address 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
--- OUTSIDE RECORDS SUMMARY | 2024-10-08 20:26 | XMS_ITS | Encounter Summary ---
Author Organization [facility] Address [address] [place] [address] Care Team Providers Care Hat Brim Curler Name Role Phone Massiel Munoz MD Primary Care Provider + Encounter Details Date Type Department Care Team (Late st Contact Info) Description 03/01/1999 Outpatient Historical [facility] Internal Medicine [address] [address] Massiel Munoz MD [facility] [address] [address] Social History Tobacco Use Types Packs/Day Years Used Date Smoking Tobacco: Never Assessed Comments Unknown Sex and Gender Information Value Date Recorded Sex Assigned at Not on file 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
--- OUTSIDE RECORDS SUMMARY | 2024-10-08 20:26 | XMS_ITS | Encounter Summary ---
Author Organization [facility] Address 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
--- OUTSIDE RECORDS SUMMARY | 2024-10-08 20:26 | XMS_ITS | Encounter Summary ---
Author Organization [facility] [place] 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
--- OUTSIDE RECORDS SUMMARY | 2024-10-08 20:26 | XMS_ITS | Encounter Summary ---
Author Organization [facility] Address 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
--- OUTSIDE RECORDS SUMMARY | 2024-10-08 20:26 | XMS_ITS | Encounter Summary ---
Author Organization [facility] Address 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
--- OUTSIDE RECORDS SUMMARY | 2024-10-08 20:26 | XMS_ITS | Encounter Summary ---
Author Organization [facility] Address 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
--- OUTSIDE RECORDS SUMMARY | 2024-10-08 20:26 | XMS_ITS | Encounter Summary ---
Author Organization [facility] Address [address] [place] [address] Care Team Providers Care Apple Picking Supervisor Name Role Phone Massiel Munoz MD Primary Care Provider + Encounter Details Date Type Department Care Team (Late st Contact Info) Description 06/11/2000 Outpatient Historical [address] [phone] Mandy Aguilar MD NO ADDRESS ON FILE Social History Tobacco Use Types Packs/Day Years Used Date Smoking Tobacco: Never Assessed Comments Unknown Sex and Gender Information Value Date Recorded Sex Assigned at Not on file Legal Sex Female 4:00 AM MISSING PERSONS INVESTIGATOR Gender Identity Not on file Sexual Orientation Not on file documented as of this encounter Plan of Treatment Not on file documented as of this encounter Visit Diagnoses Not on filedocumented in this encounter Care Teams Apple Picking Supervisor Relationship Specialty Start Date End Date Massiel Munoz MD [address] [phone] PCP - General 09/30/00 documented as of this encounter
--- OUTSIDE RECORDS SUMMARY | 2024-10-08 20:26 | XMS_ITS | Encounter Summary ---
Author Organization [facility] Address 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
--- OUTSIDE RECORDS SUMMARY | 2024-10-08 20:26 | XMS_ITS | Encounter Summary ---
Author Organization [employer] Address [address] [place] [address] Care Team Providers Care Project Engineering Manager Name Role Phone Massiel Munoz MD Primary Care Provider + Encounter Details Date Type Department Care Team (Latest Contact Info) Description 09/30/2000 Outpatient Historical [facility] Mandy Aguilar MD NO ADDRESS ON FILE Gynecological examination (Primary Dx) Social History Tobacco Use Types Packs/Day Years Used Date Smoking Tobacco: Never Assessed Comments Unknown Sex and Gender Information Value Date Recorded Sex Assigned at Not on file Legal Sex Female 4:00 AM AUTHORIZATION COORDINATOR Gender Identity Not on file Sexual Orientation Not on file documented as of this encounter Plan of Treatment Not on file documented as of this encounter Visit Diagnoses Diagnosis Gynecological examination- Primary documented in this encounter Care Teams Project Engineering Manager Relationship Specialty Start Date End Date Massiel Munoz MD [address] [phone] PCP - General 09/30/00 documented as of this encounter
--- OUTSIDE RECORDS SUMMARY | 2024-10-08 20:26 | XMS_ITS | Encounter Summary ---
Author Organization [facility] Address 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
--- OUTSIDE RECORDS SUMMARY | 2024-10-08 20:26 | XMS_ITS | Encounter Summary ---
Author Organization [facility] Address 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
--- OUTSIDE RECORDS SUMMARY | 2024-10-08 20:26 | XMS_ITS | Encounter Summary ---
Author Organization [facility] Address 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
--- OUTSIDE RECORDS SUMMARY | 2024-10-08 20:26 | XMS_ITS | Clinical Summary ---
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 Gender Identity Not on file Sexual Orientation Not on file Plan of Treatment Health Maintenance Due Date Last Done Comments DTAP/TDAP/TD VACCINES (1 - Tdap) 09/20/1987 HEPATITIS B VACCINES (1 of 3 - 19+ 3-dose series) 08/1987 HPV/Cotest 1998 CERVICAL CANCER SCREENING 06/28/2001 PAP SMEAR 06/28/2001 06/28/1998 PAP SMEAR 06/28/2001 06/28/1998 BREAST CANCER SCREENING 2008 COLORECTAL SCREENING 2013 Colorectal Cancer Screening 2013 FIT-DNA Q 3 years 2013 FIT/FOBT Q 1 year 2013 Flex Sig/CT Colonography Q 5 years 2013 ZOSTER VACCINE (1 of 2) 2018 INFLUENZA VACCINE (#1) 2024 Care Teams Long Goods Drier Relationship Specialty Start Date End Date Massiel Munoz MD [address] [place] [phone] PCP - General 09/30/00
--- OUTSIDE RECORDS SUMMARY | 2024-10-08 20:26 | XMS_ITS | Encounter Summary ---
Author Organization [facility] Address 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
--- OUTSIDE RECORDS SUMMARY | 2024-10-08 20:26 | XMS_ITS | Encounter Summary ---
Author Organization [facility] Address 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
--- OUTSIDE RECORDS SUMMARY | 2024-10-08 20:26 | XMS_ITS | Encounter Summary ---
Author Organization [facility] Address 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
--- OUTSIDE RECORDS SUMMARY | 2024-10-08 20:26 | XMS_ITS | Encounter Summary ---
Author Organization [facility] Address 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
--- OUTSIDE RECORDS SUMMARY | 2024-10-08 20:26 | XMS_ITS | Encounter Summary ---
Author Organization [employer] Address 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
--- OUTSIDE RECORDS SUMMARY | 2024-10-08 20:26 | XMS_ITS | Encounter Summary ---
Author Organization [facility] Address 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
--- OUTSIDE RECORDS SUMMARY | 2024-10-08 20:26 | XMS_ITS | Encounter Summary ---
Author Organization [facility] Address [address] [place] [address] Care Team Providers Care Public Interviewer Name Role Phone Massiel Munoz MD Primary Care Provider + Encounter Details Date Type Department Care Team (Late st Contact Info) Description 06/26/[address] 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
--- OUTSIDE RECORDS SUMMARY | 2024-10-08 20:26 | XMS_ITS | Encounter Summary ---
Author Organization [facility] Address 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
--- OUTSIDE RECORDS SUMMARY | 2024-10-08 20:26 | XMS_ITS | Encounter Summary ---
Author Organization [facility] Address 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
--- OUTSIDE RECORDS SUMMARY | 2024-10-08 20:26 | XMS_ITS | Encounter Summary ---
Author Organization [facility] Address [address] [place] [address] Care Team Providers Care Coastal/Harbor Defense Officer Name Role Phone Massiel Munoz MD Primary Care Provider + Encounter Details Date Type Department Care Team (Late st Contact Info) Description 10/05/1998 Outpatient Historical [facility] Internal Medicine [address] [address] Massiel Munoz MD [facility] [phone] Social History Tobacco Use Types Packs/Day Years Used Date Smoking Tobacco: Never Assessed Comments Unknown Sex and Gender Information Value Date Recorded Sex Assigned at Not on file 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
--- OUTSIDE RECORDS SUMMARY | 2024-10-08 20:26 | XMS_ITS | Encounter Summary ---
Author Organization [facility] Address 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
--- OUTSIDE RECORDS SUMMARY | 2024-10-08 20:26 | XMS_ITS | Encounter Summary ---
Author Organization [facility] Address 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
--- OUTSIDE RECORDS SUMMARY | 2024-10-08 20:26 | XMS_ITS | Encounter Summary ---
Author Organization [facility] Address 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
--- OUTSIDE RECORDS SUMMARY | 2024-10-08 20:26 | XMS_ITS | CONTINUITY OF CARE DOCUMENT ---
Author Name [facility] Address Unknown Organization [facility] Address [address] [facility] [address] [place] [address] Phone [phone] Care Team Providers Care Mechanical Service Representative Name Role Phone Jackson ZABALA, Shad Land Unavailable [phone] TERESITA LOPEZ MD Unavailable [phone] DARLING HAN MD Unavailable PROBLEMS Condition Status Date Provider Notes Cardiology examination active Carlie Neff Shortness of breath active Craig Nacht Leg edema, bilateral active Craig Nacht Palpitations active Craig Nacht Hyperlipidemia active Craig Nacht Diabetes mellitus, type 2 active Craig Nach t ENCOUNTERS Date Type Provider Location Encounter Diag nosis - In-person encounter Office Visit Shad Paz MD [facility] Office - In-person encounter Office Visit Shad Paz MD [facility] Shortness of breathLeg edema, bilateralPalpitationsHyperlipidemiaDiabetes mellitus, type 2 VITAL SIGNS Date Observation Value Provider Body Mass Index (Ratio) 44.62 kg/m2 Will farideh Collins pulse rate 86 /min Aleena schroeder oxygen saturation, oximetry 96 % Aleena Alejo blood pressure, diastolic 82 mm[Hg] Jade Alejo blood pressure, systolic 106 mm[Hg] Ariana Alejo blood pressure, cuff size regular Br tony Alejo weight E&M 260 [lb_av] Aleena Gutierrez s height E&M 64 [in_i] Aleena schroeder Body Mass Index (Ratio) 57.67 kg/m2 Memo Lopez Body Mass Index (Ratio) 57.67 kg/m2 Andreead cristhian Neff blood pressure, diastolic 74 mm[Hg] Da vid [facility] blood pressure, systolic 107 mm[Hg] Bandar id [facility] respiratory rate E&M 14 /min Joe Mcpherson sheeba pulse rate 72 /min Joe [facility] oxygen saturation, oximetry 94 % Joe [facility] weight E&M 336 [lb_av] Joe [facility] height E&M 64 [in_i] Joe [facility] blood pressure, diastolic 74 mm[Hg] Li nkLogic blood pressure, systolic 107 mm[Hg] Anisa kLog blood pressure, diastolic 74 mm[Hg] Sandy Wilson blood pressure, systolic 107 mm[Hg] Deborah Wilson oxygen saturation, oximetry 94 % Roseann Wilson pulse rate 72 /min Roseann Wilson blood pressure, cuff size large An marge Wilson respiratory rate E&M 14 /min Roseann Wilson weight E&M 336 [lb_av] Roseann Wilson height E&M 64 [in_i] Roseann Wilson ALLERGIES Allergy Name Onset Date Reaction Criticality Status LATEX High Criticality active HISTORY OF MEDICATION USE Medication Status Instructions Dates Provider Indications Com ments atorvastatin 10 mg tablet active Take 1 tablet by mouth once a day Roseann Wilson bupropion HBr active 1 a small amount a small amount once a day Roseann Wilson buspirone 10 mg tablet active 1 tablet by mouth three times a day Roseann Wilson deutetrabenazine 9 mg tablet active 1 tablet by mouth every morning Roseann Wilson empagliflozin 10 mg tablet active 1 tablet by mouth once a day Roseann Wilson gabapentin active TAKE 2 CAPSULES BY MOUTH 3 TIMES A DAY Roseann Wilson glimepiride 2 mg tablet active 1 tablet by mouth once a day Roseann Wilson Glucagon (HCl) Emergency Kit 1 mg recon soln active 1 mg subcutaneously once a day Roseann Wilson lamotrigine 25 mg tablet active 1 tablet by mouth once a day Roseann Wilson metoprolol tartrate 25 mg tablet active TAKE 1 TABLET BY MOUTH TWICE A DAY Roseann Wilson risperidone 1 mg tablet active 1 tablet by mouth once a day Roseann Wilson SOCIAL HISTORY Date Observation Value Provider smoking status Never smoker Shad Clark smoking status Never smoker Craig Lopez number of grandchildren Shad Lopez INSURANCE PROVIDERS Payer name Policy type / Coverage type [place] [employer] ID [place] Medicare [id number] [place] Medicaid [id number] ADVANCE DIRECTIVES Name Date DISCUSSED - NO DECISION MADE TREATMENT PLAN Date Name Performer Cardiology: D id not get NT ProBNP lab. Her senior accountant cpa will get it. H er updated medication list for this problem includes: Metoprolol Tartrate 25 Mg Tablet (Metoprolol tartrate) ..... Take 1 tablet by mouth twice a day Shad Paz MD Cardiology: U ncontrolled DM. A1c 7.7%. recommended she see primary H er updated medication list for this problem includes: Glimepiride 2 Mg Tablet (Glimepiride) ..... 1 tablet by mouth once a day Glucagon (hcl) Emergency Kit 1 Mg Recon Soln (Glucagon hcl) ..... 1 mg subcutaneously once a day Shad Paz MD Cardiology: H er updated medication list for this problem includes: Atorvastatin 10 Mg Tablet (Atorvastatin) ..... Take 1 tablet by mouth once a day Shad Paz MD Cardiology: V enous duplex normal. No DVT Shad Paz MD Cardiology: N o afib H er updated medication list for this problem includes: Metoprolol Tartrate 25 Mg Tablet (Metoprolol tartrate) ..... Take 1 tablet by mouth twice a day Shad Paz MD Cardiology Craig Lopez Cardiology: H er updated medication list for this problem includes: Atorvastatin 10 Mg Tablet (Atorvastatin) ..... Take 1 tablet by mouth once a day Craig Lopez Cardiology Craig Lopez Cardiology Craig Lopez Cardiology Craig Lopez Date Name Venous Doppler Bilat eral LE - Reflux Venous Doppler Bilat eral LE - Reflux Monitor - Telemetry (Mobile Cardiac) LIPID PANEL Microalb/Creatinine Urine, Random HEMOGLOBIN A1c BASIC METABOLIC PANE L W/EGFR PROBNP, N TERMINAL BASIC METABOLIC PANE L W/EGFR HISTORY OF PROCEDURES Procedure Date Procedure Name Provider Procedure Notes S tatus Complex e/m visit add on Shad Paz MD completed EKG Shad Paz MD completed
[2024-10-08 20:53] VITALS: BP 144/90; PULSE 100; RESP 30; O2SAT 98
--- NOTE | 2024-10-08 21:28 | ED.GENADULT ---
HPI - General Adult General Chief complaint: Fall Stated complaint: GLF-Rolled out of bed Time Seen by Provider: 10/08/24 19:45 History of Present Illness HPI narrative: Patient is a 54-year-old female presents emergency department with chief complaint of fall from bed the patient reports that she rolled over in bed and rolled out of her bed at the nursing facility is resident of patient reports she has head pain bilateral knee pain Related Data Home Medications ?Medication ?Instructions ?Recorded ?Confirmed ?Last Taken ?Type atorvastatin 10 mg tablet 10 mg PO DAILY 07/21/23 07/21/23 Unknown History bupropion HCl 150 mg 24 hr tablet, 150 mg PO DAILY 07/21/23 07/21/23 Unknown History extended release buspirone 10 mg tablet 20 mg PO TID 07/21/23 07/21/23 Unknown History cariprazine 1.5 mg capsule 1.5 mg PO DAILY 07/21/23 07/21/23 Unknown History (Vraylar) cyclobenzaprine 10 mg tablet 10 mg PO Q4-8H PRN muscle spasms 07/21/23 07/21/23 Unknown History deutetrabenazine 6 mg tablet 6 mg PO BID 07/21/23 07/21/23 Unknown History (Austedo) deutetrabenazine 9 mg tablet 9 mg PO BID 07/21/23 07/21/23 Unknown History (Austedo) gabapentin 600 mg tablet 600 mg PO TID 07/21/23 07/21/23 Unknown History glimepiride 1 mg tablet 1 mg PO DAILY 07/21/23 07/21/23 Unknown History hydroxyzine HCl 10 mg tablet 10 mg PO DAILY 07/21/23 07/21/23 Unknown History lamotrigine 100 mg tablet 100 mg PO DAILY 07/21/23 07/21/23 Unknown History metoprolol tartrate 25 mg PO BID 07/21/23 07/21/23 Unknown History Allergies Allergy/AdvReac Type Severity Reaction Status Date / Time latex Allergy Mild Rash Verified 07/20/23 23:54 Sulfa (Sulfonamide Allergy Redness of Verified 07/20/23 23:54 Antibiotics) Skin vancomycin Allergy Redness of Verified 07/20/23 23:54 Skin morphine AdvReac Redness of Verified 07/21/23 00:28 Skin Review of Systems Review of Systems: A 10 system review of systems was completed on the patient and is negative except for what is stated in the HPI. Nursing and ancillary documentation was reviewed. [facility] Past Medical History Medical History Bipolar disorder, unspecified COPD (chronic obstructive pulmonary disease) Diabetes Hypertension Family History Family History Mother Pulmonary embolism History of quadruple bypass Father Heart attack Social History Social History Smoking packs per day: 2 Smoking cigarettes per day: 40.0 Years smoked: 6 Smoking pack-years: 12.00 Smoking status: Former smoker Tobacco type: cigarettes Alcohol intake: never Substance use type: marijuana Do You Feel Safe in your Home?: Yes Lack of Transportation: No Lack of Food: Sometimes True Current Housing: I Have Housing Concerned About Future Housing: YES Difficulty Paying Gas/Electric Bills: No Difficulty Paying for Meds: No Currently Unemployed: No Education: Associate Degree Difficulty w/ Childcare or Family Care: No Spiritual care concerns: No Exam Narrative: GENERAL: Well-appearing, well-nourished, and in no acute distress. HEAD: Normocephalic, atraumatic. EYES: PERRLA and EOMI. ENT: Nares clear, no rhinorrhea or epistaxis. Mucous membranes moist. NECK: Supple. CHEST: Clear to auscultation. No respiratory distress. HEART: Regular rate and rhythm. No murmur heard. Normal peripheral pulses. ABDOMEN: Soft, nontender, nondistended, normal active bowel sounds. EXTREMITIES: Normal range of motion. No edema. SKIN: Warm, dry, no rash. NEURO: No focal deficits. Alert and oriented x3. PSYCH: Normal mood and affect. Course Vital Signs Vital signs: Vital Signs Temperature 36.9 C 10/08/24 19:45 Pulse Rate 109 H 10/08/24 19:45 Respiratory Rate 19 10/08/24 19:45 Blood Pressure 133/92 H 10/08/24 19:45 Pulse Oximetry 100 10/08/24 19:45 Oxygen Delivery Room Air 10/08/24 19:45 Temperature 36.9 C 10/08/24 19:45 Pulse Rate 100 10/08/24 20:53 Respiratory Rate 30 H 10/08/24 20:53 Blood Pressure 144/90 H 10/08/24 20:53 Pulse Oximetry 98 10/08/24 20:53 Oxygen Delivery Room Air 10/08/24 19:45 Medical Decision Making [facility] Narrative Medical decision making narrative: Differential diagnosis includes head injury, cervical spine fracture, knee fracture Plain film x-rays of the knee showed no evidence of fracture CT head CT C-spine showed no evidence of acute findings Vital Signs Vital Signs: Vital Signs Temperature 36.9 C 10/08/24 19:45 Pulse Rate 109 H 10/08/24 19:45 Respiratory Rate 19 10/08/24 19:45 Blood Pressure 133/92 H 10/08/24 19:45 Pulse Oximetry 100 10/08/24 19:45 Oxygen Delivery Room Air 10/08/24 19:45 Temperature 36.9 C 10/08/24 19:45 Pulse Rate 100 10/08/24 20:53 Respiratory Rate 30 H 10/08/24 20:53 Blood Pressure 144/90 H 10/08/24 20:53 Pulse Oximetry 98 10/08/24 20:53 Oxygen Delivery Room Air 10/08/24 19:45 Discharge Plan Discharge Clinical Impression: Accidental fall from bed, Head injury, Injury of knee, left, Injury of knee, right Patient Disposition: NH Long-Term/Asst Living Condition: Stable Instructions: Antibiotic Form, Head Injury (ED), Knee Pain (ED) Patient Language: Nauruan Prescriptions: No Action cyclobenzaprine 10 mg Tablet 10 mg PO Q4-8H PRN (Reason: muscle spasms) gabapentin 600 mg Tablet 600 mg PO TID atorvastatin 10 mg Tablet 10 mg PO DAILY glimepiride 1 mg Tablet 1 mg PO DAILY buspirone 10 mg Tablet 20 mg PO TID hydroxyzine HCl 10 mg Tablet 10 mg PO DAILY lamotrigine 100 mg Tablet 100 mg PO DAILY Vraylar 1.5 mg Capsule 1.5 mg PO DAILY Austedo 6 mg Tablet 6 mg PO BID Austedo 9 mg Tablet 9 mg PO BID metoprolol tartrate 25 mg PO BID bupropion HCl 150 mg Tablet Extended Release 24 Hr 150 mg PO DAILY miconazole nitrate [Antifungal (miconazole)] 2 % powder 1 applic topical BID Qty: 85 0RF Tussin DM Cough and Chest 5-100 mg/5 mL liquid 10 ml PO Q4-8H PRN (Reason: cough) Qty: 237 0RF Follow-up/Referrals: Neftali,MD Maykel [Primary Care Provider] - Time of Disposition: 21:30
[2024-10-08 21:49] VITALS: BP 130/93; PULSE 100; RESP 22; O2SAT 98
[2024-10-09 01:28] VITALS: BP 99/70; PULSE 86; RESP 16; O2SAT 94
[2024-10-09 03:35] VITALS: BP 108/68; PULSE 81; RESP 17; O2SAT 95
[2024-10-09 05:10] VITALS: BP 109/73; PULSE 85; RESP 16; O2SAT 93
[2024-10-09 05:46] VITALS: BP 129/77; PULSE 90; RESP 14; O2SAT 95
[2024-10-09 06:47] VITALS: BP 113/63; PULSE 88; RESP 15; O2SAT 100
== END 2024-10-09 09:27 ==
PROVIDERS: Emergency Provider Emergency Medicine; PCP Internal Medicine
DX: S09.90XA Unspecified injury of head, initial encounter (principal); S89.92XA Unspecified injury of left lower leg, initial encounter; S89.91XA Unspecified injury of right lower leg, initial encounter; J44.9 Chronic obstructive pulmonary disease, unspecified; I10 Essential (primary) hypertension; E11.9 Type 2 diabetes mellitus without complications; F31.9 Bipolar disorder, unspecified; Z87.891 Personal history of nicotine dependence; Z79.899 Other long term (current) drug therapy; W06.XXXA Fall from bed, initial encounter
CPT/HCPCS: 70450; 72125; 73562; 99284

== ENCOUNTER 2024-12-18 10:45 | Emergency (ER) | payer MEDICARE, MEDICAID, SELFPAY ==
--- NOTE | ~2024-12-18 | XR_ITS ---
XR ankle LT min 3V 12/18/2024 11:09 Indication: Left ankle pain Procedure: 4 views left ankle Comparison: No prior studies for comparison. Findings: Osteopenia. No fracture, subluxation or dislocation. Talar dome is normal. There is a degen erative calcaneal enthesophyte. Diffuse soft tissue edema. Impression: 1: No acute fracture. Reviewed, dictated and finalized at location A. Impression: 1: No acute fracture.
--- OUTSIDE RECORDS SUMMARY | 2024-12-18 10:48 | XMS_ITS | Encounter Summary ---
Author Organization [facility] Address 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
--- OUTSIDE RECORDS SUMMARY | 2024-12-18 10:48 | XMS_ITS | Encounter Summary ---
Author Organization [facility] Address 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
--- OUTSIDE RECORDS SUMMARY | 2024-12-18 10:48 | XMS_ITS | Encounter Summary ---
Author Organization [facility] Address 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
--- OUTSIDE RECORDS SUMMARY | 2024-12-18 10:48 | XMS_ITS | Encounter Summary ---
Author Organization [facility] Address 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
--- OUTSIDE RECORDS SUMMARY | 2024-12-18 10:48 | XMS_ITS | Encounter Summary ---
Author Organization [facility] Address 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
--- OUTSIDE RECORDS SUMMARY | 2024-12-18 10:48 | XMS_ITS | Encounter Summary ---
Author Organization [facility] Address 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
--- OUTSIDE RECORDS SUMMARY | 2024-12-18 10:48 | XMS_ITS | Encounter Summary ---
Author Organization [facility] Address 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
--- OUTSIDE RECORDS SUMMARY | 2024-12-18 10:48 | XMS_ITS | Encounter Summary ---
Author Organization [facility] Address 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
--- OUTSIDE RECORDS SUMMARY | 2024-12-18 10:48 | XMS_ITS | Encounter Summary ---
Author Organization [facility] Address 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
--- OUTSIDE RECORDS SUMMARY | 2024-12-18 10:48 | XMS_ITS | Encounter Summary ---
Author Organization [facility] Address 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
--- OUTSIDE RECORDS SUMMARY | 2024-12-18 10:48 | XMS_ITS | Encounter Summary ---
Author Organization [facility] Address [address] [place] [address] Care Team Providers Care Newspaper Clipper Name Role Phone Massiel Munoz MD Primary Care Provider + Encounter Details Date Type Department Care Team (Late st Contact Info) Description 04/15/2000 Outpatient Historical [facility] Internal Medicine [address] [phone] John Parry Social History Tobacco Use Types Packs/Day Years Used Date Smoking Tobacco: Never Assessed Comments Unknown Sex and Gender Information Value Date Recorded Sex Assigned at Not on file Legal Sex Female 4:00 AM THERAPEUTIC MENTOR Gender Identity Not on file Sexual Orientation Not on file documented as of this encounter Plan of Treatment Not on file documented as of this encounter Visit Diagnoses Not on filedocumented in this encounter Care Teams Newspaper Clipper Relationship Specialty Start Date End Date Massiel Munoz MD [address] [phone] PCP - General 09/30/00 documented as of this encounter
--- OUTSIDE RECORDS SUMMARY | 2024-12-18 10:48 | XMS_ITS | Encounter Summary ---
Author Organization [facility] Address 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
--- OUTSIDE RECORDS SUMMARY | 2024-12-18 10:48 | XMS_ITS | Clinical Summary ---
Author Organization [facility] Address [address] [place] [address] Care Team Providers Care Special Needs Tutor Name Role Phone Massiel Munoz MD Primary Care Provider + Social History Tobacco Use Types Packs/Day Years Used Date Smoking Tobacco: Never Assessed Comments Unknown Sex and Gender Information Value Date Recorded Sex Assigned at Not on file Legal Sex Female 4:00 AM DISTANCE LEARNING UNIT LEADER Gender Identity Not on file Sexual Orientation Not on file Plan of Treatment Health Maintenance Due Date Last Done Comments DTAP/TDAP/TD VACCINES (1 - Tdap) 09/20/1987 HEPATITIS B VACCINES (1 of 3 - 19+ 3-dose series) 08/1987 HPV/Cotest (21-29) 1989 HPV/Cotest (30-65) 1998 CERVICAL CANCER SCREENING 06/28/2001 PAP SMEAR 06/28/2001 06/28/1998 BREAST CANCER SCREENING 2008 COLORECTAL SCREENING 2013 Colorectal Cancer Screening 2013 FIT-DNA Q 3 years 2013 FIT/FOBT Q 1 year 2013 Flex Sig/CT Colonography Q 5 years 2013 ZOSTER VACCINE (1 of 2) 2018 INFLUENZA VACCINE (#1) 2024 Care Teams Special Needs Tutor Relationship Specialty Start Date End Date Massiel Munoz MD [address] [place] [phone] PCP - General 09/30/00
--- OUTSIDE RECORDS SUMMARY | 2024-12-18 10:48 | XMS_ITS | Encounter Summary ---
Author Organization [facility] Address [address] [place] [address] Care Team Providers Care Sales Clerk Supervisor Name Role Phone Massiel Munoz MD Primary Care Provider + Encounter Details Date Type Department Care Team (Late st Contact Info) Description 01/12/[address] 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
--- OUTSIDE RECORDS SUMMARY | 2024-12-18 10:48 | XMS_ITS | Encounter Summary ---
Author Organization [facility] Address [address] [place] [address] Care Team Providers Care Needle Loom Operator Helper Name Role Phone Massiel Munoz MD Primary Care Provider + Encounter Details Date Type Department Care Team (Late st Contact Info) Description 09/24/1999 Outpatient Historical [facility] Internal Medicine [address] [address] Massiel Munoz MD [facility] [address] [address] Social History Tobacco Use Types Packs/Day Years Used Date Smoking Tobacco: Never Assessed Comments Unknown Sex and Gender Information Value Date Recorded Sex Assigned at Not on file 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
--- OUTSIDE RECORDS SUMMARY | 2024-12-18 10:48 | XMS_ITS | Encounter Summary ---
Author Organization [facility] Address 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
--- OUTSIDE RECORDS SUMMARY | 2024-12-18 10:48 | XMS_ITS | Encounter Summary ---
Author Organization [employer] Address 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
--- OUTSIDE RECORDS SUMMARY | 2024-12-18 10:48 | XMS_ITS | Encounter Summary ---
Author Organization [facility] Address 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
--- OUTSIDE RECORDS SUMMARY | 2024-12-18 10:48 | XMS_ITS | Encounter Summary ---
Author Organization [facility] Address [address] [place] [address] Care Team Providers Care Bulb Packer Name Role Phone Massiel Munoz MD Primary Care Provider + Encounter Details Date Type Department Care Team (Late st Contact Info) Description 06/30/1998 Outpatient Historical [address] [address] Mandy Aguilar MD NO ADDRESS ON FILE Social History Tobacco Use Types Packs/Day Years Used Date Smoking Tobacco: Never Assessed Comments Unknown Sex and Gender Information Value Date Recorded Sex Assigned at Not on file Legal Sex Female 4:00 AM DIRECTOR DRUG SAFETY Gender Identity Not on file Sexual Orientation Not on file documented as of this encounter Plan of Treatment Not on file documented as of this encounter Visit Diagnoses Not on filedocumented in this encounter Care Teams Bulb Packer Relationship Specialty Start Date End Date Massiel Munoz MD [address] [phone] PCP - General 09/30/00 documented as of this encounter
--- OUTSIDE RECORDS SUMMARY | 2024-12-18 10:48 | XMS_ITS | Encounter Summary ---
Author Organization [employer] Address 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
--- OUTSIDE RECORDS SUMMARY | 2024-12-18 10:48 | XMS_ITS | Encounter Summary ---
Author Organization [facility] Address [address] [place] [address] Care Team Providers Care Canal Boat Operator Name Role Phone Massiel Munoz MD Primary Care Provider + Encounter Details Date Type Department Care Team (Late st Contact Info) Description 06/26/1998 Outpatient Historical [facility] Internal Medicine [address] [address] Massiel Munoz MD [facility] [address] [phone] Social History Tobacco Use Types Packs/Day Years Used Date Smoking Tobacco: Never Assessed Comments Unknown Sex and Gender Information Value Date Recorded Sex Assigned at Not on file Legal Sex Female 4:00 AM WAREHOUSE DELIVERY MANAGER Gender Identity Not on file Sexual Orientation Not on file documented as of this encounter Plan of Treatment Not on file documented as of this encounter Visit Diagnoses Not on filedocumented in this encounter Care Teams Canal Boat Operator Relationship Specialty Start Date End Date Massiel Munoz MD [address] [phone] PCP - General 09/30/00 documented as of this encounter
--- OUTSIDE RECORDS SUMMARY | 2024-12-18 10:48 | XMS_ITS | Encounter Summary ---
Author Organization [facility] Address [address] [place] [address] Care Team Providers Care Grinder Set Up Operator Thread Name Role Phone Massiel Munoz MD Primary Care Provider + Encounter Details Date Type Department Care Team (Late st Contact Info) Description 07/11/1998 Outpatient Historical [address] [address] Mandy Aguilar MD NO ADDRESS ON FILE Social History Tobacco Use Types Packs/Day Years Used Date Smoking Tobacco: Never Assessed Comments Unknown Sex and Gender Information Value Date Recorded Sex Assigned at Not on file Legal Sex Female 4:00 AM ADMIRALTY LAWYER Gender Identity Not on file Sexual Orientation Not on file documented as of this encounter Plan of Treatment Not on file documented as of this encounter Visit Diagnoses Not on filedocumented in this encounter Care Teams Grinder Set Up Operator Thread Relationship Specialty Start Date End Date Massiel Munoz MD [address] [phone] PCP - General 09/30/00 documented as of this encounter
--- OUTSIDE RECORDS SUMMARY | 2024-12-18 10:48 | XMS_ITS | Encounter Summary ---
Author Organization [facility] Address [address] [place] [address] Care Team Providers Care Primary Clinician Name Role Phone Massiel Munoz MD Primary Care Provider + Encounter Details Date Type Department Care Team (Late st Contact Info) Description 09/30/2000 Outpatient Historical [address] [address] Mandy Aguilar MD NO ADDRESS ON FILE Social History Tobacco Use Types Packs/Day Years Used Date Smoking Tobacco: Never Assessed Comments Unknown Sex and Gender Information Value Date Recorded Sex Assigned at Not on file Legal Sex Female 4:00 AM SPECIAL EFFECTS TECHNICIAN Gender Identity Not on file Sexual Orientation Not on file documented as of this encounter Plan of Treatment Not on file documented as of this encounter Visit Diagnoses Not on filedocumented in this encounter Care Teams Primary Clinician Relationship Specialty Start Date End Date Massiel Munoz MD [address] [phone] PCP - General 09/30/00 documented as of this encounter
--- OUTSIDE RECORDS SUMMARY | 2024-12-18 10:48 | XMS_ITS | Encounter Summary ---
Author Organization [facility] Address [address] [place] [address] Care Team Providers Care Drafter Electromechanical Name Role Phone Massiel Munoz MD Primary Care Provider + Encounter Details Date Type Department Care Team (Late st Contact Info) Description 03/01/1999 Outpatient Historical [address] [address] Mandy Aguilar MD NO ADDRESS ON FILE Social History Tobacco Use Types Packs/Day Years Used Date Smoking Tobacco: Never Assessed Comments Unknown Sex and Gender Information Value Date Recorded Sex Assigned at Not on file Legal Sex Female 4:00 AM DUMPER BAILER OPERATOR Gender Identity Not on file Sexual Orientation Not on file documented as of this encounter Plan of Treatment Not on file documented as of this encounter Visit Diagnoses Not on filedocumented in this encounter Care Teams Drafter Electromechanical Relationship Specialty Start Date End Date Massiel Munoz MD [address] [phone] PCP - General 09/30/00 documented as of this encounter
--- OUTSIDE RECORDS SUMMARY | 2024-12-18 10:48 | XMS_ITS | Clinical Summary ---
Author Organization [facility] Address [address] [facility] [place] [address] Care Team Providers Care Manager Part Name Role Phone Maykel Lindsay MD Primary Care Provider [phone] Source Comments [facility] Affiliates and Associated Physician Practices is amultiple site organization consisting of ambulatory clinics and hospital sitesin [place], [place], [place] and [place]. This disclosure is being madepursuant to the Care Everywhere program and may not contain all information available regarding this patient. Last updated 18.[facility] [employer] Allergies Active Allergy Reactions Criticality Noted Date Comments Latex Rash Medium 02/24/2020 Morphine Itching 10/02/2020 Sulfa Drugs Rash Medium 02/24/2020 Vancomycin Rash Medium 02/24/2020 Medications * Be aware that medications may not be up to date on this document. Alwaysverify current medications with the patient. atorvastatin (LIPITOR) 10 MG tablet Take 10 mg by mouth Active busPIRone (BUSPAR) 10 MG tablet Take 10 mg by mouth 3 times daily Active fluticasone propionate (FLONASE) 50 MCG/ACT nasal spray [place] 1-2 sprays into the nose once daily Active gabapentin (NEURONTIN) 600 MG tablet Take 600 mg by mouth at bedtime Active glimepiride (AMARYL) 1 MG tablet Take 1 mg by mouth Active lamoTRIgine (LAMICTAL) 100 MG tablet Take 100 mg by mouth once daily Active megestrol (MEGACE) 40 MG tablet Take 40 mg by mouth once daily 8 Active metoprolol tartrate (LOPRESSOR) 25 MG tablet Take 25 mg by mouth 2 times daily Active mirabegron ER 24hr (MYRBETRIQ) 50 MG tablet Take 50 mg by mouth once daily Active SITagliptin (JANUVIA) 100 MG tablet Take 50 mg by mouth once daily Active brimonidine (ALPHAGAN P) 0.15 % ophthalmic solution 1 drop by Ophthalmic route 2 times daily Active buPROPion XL 24hr (WELLBUTRIN-XL ) 150 MG tablet Take 150 mg by mouth once daily Active vitamin D, ergocalciferol , (DRISDOL) 1.25 MG (56522 UT) capsule Take 50,000 Units by mouth every 7 days Active acetaminophen (TYLENOL) 500 MG tablet Take 1 tablet by mouth every 4 hours as needed Maximum allowable Acetaminophen amount = 4 Grams (4000 mg) / 24 hours. 0 Active albuterol HFA (PROVENTIL;JERRELL TOLIN;PROAIR) 108 (90 Base) MCG/ACT inhaler Inhale 2 puffs by mouth Active VENTOLIN HFA 108 (90 Base) MCG/ACT inhaler INHALE 2 PUFFS FOUR TIMES DAILY NEEDED 0 Active cariprazine (VRAYLAR) 1.5 MG capsule Vraylar 1.5 mg capsule TAKE 1 CAPSULE BY MOUTH ONCE DAILY Active AUSTEDO 12 MG tablet Take 12 mg by mouth 2 times daily 1 Active famotidine (PEPCID) 20 MG tablet famotidine [...] Frequency of Binge Drinking Not on file 12/2019 Comments No Sex and Gender Information Value Date Recorded Sex Assigned at Not on file Legal Sex Female 10:21 AM BLOOD BANK LABORATORY TECHNICIAN Gender Identity Not on file Sexual [...] 11:25 AM CDT Height 162.6 cm (5' 4) 10/02/2020 2:23 PM CDT Body Mass Index 48.92 04/03/2020 11:25 AM CDT Plan of Treatment Health Maintenance Due Date Last Done Comments COLOGUARD (AGES 45-75) - COLON CA SCREENING 1968 COLON MONITORING 1968 COLONOSCOPY - COLON CA SCREENING 1968 CT COLONOGRAPHY - COLON CA SCREENING 1968 Colorectal Cancer Screening 1968 FIT - COLON CA SCREENING 1968 FLEX SIG - COLON CA SCREENING 1968 HIV SCREENING 09/20/1983 HEPATITIS C SCREENING 09/15/1986 DTAP/TDAP/TD VACCINES (1 - Tdap) 09/20/1987 HEPATITIS B VACCINE (1 of 3 - 19+ 3-dose series) 09/20/1987 MAMMOGRAM 10/29/2017 10/30/2015 PNEUMOCOCCAL VACCINE 50+ (1 of 1 - PCV) 2018 ZOSTER VACCINE (1 of 2) 2018 SCREENING FOR DIABETES 03/04/2023 0, 03/04/2020, 03/04/2020, Additional history exists COVID-19 VACCINE (1 - season) 2024 DEPRESSION SCREENING 07/21/2024 INFLUENZA VACCINE (Season Ended) 2025 06/07/2020, 08/07/2018, 06/02/2017 HIB VACCINE Aged Out No longer eligi [...] - 115 mg/dL 03/04/2020 7:07 AM CDT [facility] Specimen Type Arterial/C apillary 03/04/2020 7:07 AM CDT [facility] Blood BLOOD SPECIMEN / Unknown 03/04/2020 6:46 AM CDT 03/04/2020 7:07 AM CDT us Nesha Mikey Schrader MD LAB - POINT OF CARE ORDERABLES Final Result Performing Organization Address City/State/[facility] Co de Phone Number [address] [address], [facility] [phone] from Last 3 Months or Most Recently Relevant to Health Maintenance Insurance MEDICARE MEDICAID - OUT OF STATE MEDICARE MEDICAID - [place] Advance Directives * Full Code (Latest Code Status on File) Date Activated Date Inactivated Comments 02/25/2020 12:06 AM 03/04/2020 2:20 PM Care Teams Manager Part Relationship Specialty Start Date End Date Maykel Lindsay MD PCP - General Internal Medicine 02/24/20
--- OUTSIDE RECORDS SUMMARY | 2024-12-18 10:48 | XMS_ITS | Encounter Summary ---
Author Organization [facility] Address 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
--- OUTSIDE RECORDS SUMMARY | 2024-12-18 10:48 | XMS_ITS | Encounter Summary ---
Author Organization [facility] Address [address] [place] [address] Care Team Providers Care Forestry Conservation Worker Name Role Phone Massiel Munoz MD Primary Care Provider + Encounter Details Date Type Department Care Team (Late st Contact Info) Description 09/24/1999 Outpatient Historical [address] [address] Mandy Aguilar MD NO ADDRESS ON FILE Social History Tobacco Use Types Packs/Day Years Used Date Smoking Tobacco: Never Assessed Comments Unknown Sex and Gender Information Value Date Recorded Sex Assigned at Not on file Legal Sex Female 4:00 AM PRESS BREAKER Gender Identity Not on file Sexual Orientation Not on file documented as of this encounter Plan of Treatment Not on file documented as of this encounter Visit Diagnoses Not on filedocumented in this encounter Care Teams Forestry Conservation Worker Relationship Specialty Start Date End Date Massiel Munoz MD [address] [phone] PCP - General 09/30/00 documented as of this encounter
--- OUTSIDE RECORDS SUMMARY | 2024-12-18 10:48 | XMS_ITS | Encounter Summary ---
Author Organization [facility] Address [address] [place] [address] Care Team Providers Care Technical Service Representative Name Role Phone Massiel Munoz MD Primary Care Provider + Encounter Details Date Type Department Care Team (Late st Contact Info) Description 05/07/1999 Outpatient Historical [facility] Internal Medicine [address] [address] Massiel Munoz MD [facility] [address] [address] Social History Tobacco Use Types Packs/Day Years Used Date Smoking Tobacco: Never Assessed Comments Unknown Sex and Gender Information Value Date Recorded Sex Assigned at Not on file 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
--- OUTSIDE RECORDS SUMMARY | 2024-12-18 10:48 | XMS_ITS | Data Portability ---
Author Organization [place] - [facility] [employer], Main Office Address [address] [place] [address] Assessment Encounter Date Assessment Date Assessment LastModified by Organization Details LastModified Time 07/04/2023 07/04/2023 I have reconcile d the [...] regular follow-up sooner if he gets worse [email or web address] Not available 07/05/2023 15:22:35 06/15/2024 06/15/2024 Assessment: Multiple environmental allergies High IgE 680 IU/mL Cardiomegaly Iron deficiency CKD Plan: The following were reviewed and explained to the patient: [facility] split sleep study 05/02/14 AHI = 27 [facility] diagnostic sleep study 04/16/17 AHI = 25, PLMI = 10 [facility] diagnostic sleep study 06/12/21 AI = 2 Ferritin 04/16/21 73 ng/mL Hgb 04/16/21 16.5 gm% Hct 04/16/21 48.5% BUN 04/16/21 27 mg% Creatinine 04/16/21 2.07 mg% PFT 04/17/22 nl FEV1/FVC, FEV1 2.23 L (86%), TLC 3.27 L (66%), DLCO 52%, DLCO/VA 125% Lab data 04/17/22 multiple environmental allergies, high IgE Chest 2 views 09/28/22 cardiomegaly Cough/Dyspnea workup will be done as [...] 2-D echocardiography and split night sleep study Not available 06/15/2024 16:58:24 06/30/2024 06/30/2024 Assessment: Multiple environmental allergies High IgE 680 IU/mL LVH Atrial fibrillation JOY Iron deficiency CKD Plan: The following were reviewed and explained to the patient: [facility] split sleep study 05/02/14 AHI = 27 [facility] diagnostic sleep study 04/16/17 AHI = 25, PLMI = 10 [facility] diagnostic sleep study 06/12/21 AI = 2 [...] challenge testing and [facility] Not available 06/30/2024 10:59:50 08/23/2024 08/23/2024 Assessment: Multiple environmental allergies High IgE 680 IU/mL Methacholine (+) mild persistent asthma LVH Intermittent atrial fibrillation Early REM onset Moderate OSAHS, AHI = 18 Iron deficiency CKD Plan: The following were reviewed and explained to the patient: [facility] split sleep study 05/02/14 AHI = 27 [facility] diagnostic sleep study 04/16/17 AHI = 25, PLMI = 10 [facility] diagnostic sleep study 06/12/21 AI = 2 [facility] split night sleep study 08/18/24 sleep onset [...] carrier. Patient will setup an appointment with [facility] for supplies and pressure adjustments. A [...] to the patient. Not available 08/23/2024 11:31:49 11/22/2024 11/22/2024 Assessment: Multiple environmental allergies High IgE 680 IU/mL Methacholine (+) mild persistent asthma LVH Intermittent atrial fibrillation Early REM onset Moderate OSAHS, AHI = 18 Iron deficiency CKD Plan: The following were reviewed and explained to the patient: [facility] split sleep study 05/02/14 AHI = 27 [facility] diagnostic sleep study 04/16/17 AHI = 25, PLMI = 10 [facility] diagnostic sleep study 06/12/21 AI = 2 [facility] split night sleep study 08/18/24 sleep onset [...] General information on bronchial asthma was covered. Patient will monitor peak flow daily at [...] immediately. Advised to continue not to smoke. Continue Flovent HFA 44 mcg 2 puffs BID. [...] intake. Her PCP is monitoring her CKD. PAP compliance downloaded and interpreted x 20 minutes. Data reviewed and explained to the patient. Average apnea/hypopnea index (AHI) is 0.6. Patient used PAP > 4 hours 67% of the time. PAP is set at 10 cmH2O. PAP will remain at 10 cmH2O. Oxygen supplementation: none Keep ramp start at 5 cmH2O. Keep ramp duration at 20 minutes. Keep EPR +1 ramp only. Keep humidifier level at automatic mode. Keep tube temperature at automatic mode. Patient is benefiting from PAP therapy. Encouraged patient to maintain PAP use more than 70% of the time. Statement of PAP use and benefits will be sent to the home care store. Educated the patient on problems and solutions [...] is an important part of PAP therapy. Provided the patient with a list of local home care stores where positive airway pressure (PAP) units, accoutrement, and services are available. Home care store selection is based on patient's insurance carrier. Patient will setup an appointment with [facility] for supplies and pressure adjustments. A [...] records to PCP for further management. Follow-up: 2 months, January 2025 Not available 11/22/2024 11:03:28 Plan of Treatment Reminders Order Date Submit Date Provider Last Modified By Organization Details Last Modified Time Details Appointments Any 15 2024 10:30A Shanda Ortiz MD Not available Not available Not available Lab glycohemo globin, total, blood 2022 023 [facility] (Lab), [address] [place], [address], 07/04/2023 13:19:43 CMP, serum or plasma [address] (Lab), [address] [place], [address], 07/04/2023 13:02:32 lipid panel, serum [address] (Lab), [address] [place], [address], 07/04/2023 13:02:32 CBC w/ auto diff [address] (Lab), [address] [place], [address], 07/04/2023 13:02:32 T3, free, serum or plasma [address] (Lab), [address] [place], [address], 07/04/2023 13:02:32 T4, free, serum [address] (Lab), [address] [place], [address], 07/04/2023 13:02:32 TSH, serum or plasma 2022 023 [facility] (Lab), [address] [place], [address], 07/04/2023 13:23:28 BNP (B-type natriuret ic peptide), blood 2022 023 [facility] (Lab), [address] [place], [address], 07/04/2023 13:09:42 Referral cardiolog ist referral - Please call patient to schedule. 2023 024 SANDRINE Paz MD, [address] [place], [address], 08/23/2024 13:42:43 Procedures None recorded. Surgeries None recorded. Imaging polysomno gram, split night - Please call patient to schedule. 2023 024 [email or web address] [facility], [address] [place], [address], 07/07/2024 14:34:18 polysomno gram, split night - Please call patient to schedule. 2023 024 [email or web address] [facility], [address] [place], [address], 07/27/2024 10:32:23 US, echocardi ogram, transthor acic, complete, w/ color flow - Please call patient to schedule. 2023 024 [facility] ([facility] Sched[facility]), [address] [place], [address], 06/25/2024 10:38:22 Medication Orders albuterol sulfate HFA 90 mcg/actua tion aerosol inhaler 2024 025 [facility], [address] [place] [address], [address], 11/22/2024 11:04:25 Flovent HFA 44 mcg/actua tion aerosol inhaler 2024 025 [facility], [address] [place] [address], [address], 11/22/2024 11:04:23 albuterol sulfate HFA 90 mcg/actua tion aerosol inhaler 2024 025 [facility], [address] [place] [address], [address], 08/23/2024 11:06:14 Flovent HFA 44 mcg/actua tion aerosol inhaler 2024 025 [facility], [address] [place] [address], [address], 08/23/2024 11:06:12 albuterol sulfate HFA 90 mcg/actua tion aerosol inhaler [address], [place], [place], [id number], 06/30/2024 10:19:33 Patient TargetsNo targets recorded. Patient Instructions Encounter Date Encounter Id Patient Instructions Last Modified By Organization Details Last Modified Time 07/04/2023 [id number] Thank you for your visit to our [...] Not available 07/04/2023 11:00:21 Homebound Status : Required Home Health Services: Durable Medical Equipment needed: Billing Guidelines CPT code 85398- Transitional Care Management services with moderate medical decision complexity (gutv-zm-ofyj visit within 14 days of discharge). CPT code 76453- Transitional Care Management services with high medical decision complexity (zsfu-wc-deuj visit within 7 days of discharge). Not available 07/04/2023 11:00:21 06/15/2024 [id number] methacholine challenge* - Please call patient to schedule. [facility] CPT_95070 w/ traditional MCR/BISMARK. Not available 07/27/2024 10:31:59 06/30/2024 [id number] methacholine challenge* - Please call patient to schedule. [facility] CPT_95070 w/ traditional MCR/BISMARK. 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 Referring Physician: Cory Ortiz, Pulmonary Disease, Encounter Date: 06/30/2024 Results Created Date Observation Date Name Description Value Unit Range Abnormal Flag Note LastModifiedBy Organization Detail LastModifiedTime 07/04/20 23 07/04/2023 CBC/C OMPLE TE BLD COUNT W/DIF F white blood cells 11.4 x10'3 /uL 4.2-10 .8 high Not Available [facility] (Lab) [address] [facility] [place], [address], 07/04/2023 12:37:28 07/04/20 23 07/04/2023 CBC/C OMPLE TE BLD COUNT W/DIF F red blood cells 4.69 x10'6 /uL 3.80-5 .20 Not Available [facility] (Lab) [address] [place], [address], 07/04/2023 12:37:28 07/04/20 23 07/04/2023 CBC/C OMPLE TE BLD COUNT W/DIF F hemoglobin 16.0 g/dL 12.0-1 5.6 high Not Available [facility] (Lab) [address] [place], [address], 07/04/2023 12:37:28 07/04/20 23 07/04/2023 CBC/C OMPLE TE BLD COUNT W/DIF F hematocrit 48.0 % 35.7-4 5.7 high Not Available [facility] (Lab) [address] [place], [address], 07/04/2023 12:37:28 07/04/20 23 07/04/2023 CBC/C OMPLE TE BLD COUNT W/DIF F mean red cell volume 102.3 fL 82.0-9 9.0 high Not Available [facility] (Lab) [address] [place], [address], 07/04/2023 12:37:28 07/04/20 23 07/04/2023 CBC/C OMPLE TE BLD COUNT W/DIF F mean red cell hemoglobin 34.1 pg 27.0-3 3.0 high Not Available [facility] (Lab) [address] [place], [address], 07/04/2023 12:37:28 12/07/04/2023 CBC/C OMPLE TE BLD COUNT W/DIF F mean RBC HGB concentratio n 33.3 g/dL 31.0-3 6.0 Not Available [facility] (Lab) [address] [place], [address], 07/04/2023 12:37:28 07/04/20 23 07/04/2023 CBC/C OMPLE TE BLD COUNT W/DIF F red cell distribution width 13.2 % 11.8-1 5.5 Not Available [facility] (Lab) [address] [place], [address], 07/04/2023 12:37:28 07/04/20 23 07/04/2023 CBC/C OMPLE TE BLD COUNT W/DIF F platelets 288 x10'3 /uL 150-40 0 Not Available [facility] (Lab) [address] [place], [address], 07/04/2023 12:37:28 07/04/20 23 07/04/2023 CBC/C OMPLE TE BLD COUNT W/DIF F mean platelet volume 8.7 fL 9.0-12 .4 low Not Available [facility] (Lab) [address] [place], [address], 07/04/2023 12:37:28 07/04/20 23 07/04/2023 CBC/C OMPLE TE BLD COUNT W/DIF F neutrophils 72.7 % 39.0-7 2.0 high Not Available [facility] (Lab) [address] [place], [address], 07/04/2023 12:37:28 07/04/20 23 07/04/2023 CBC/C OMPLE TE BLD COUNT W/DIF F lymphocytes 19.8 % 16.0-4 7.0 Not Available [facility] (Lab) [address] [place], [address], 07/04/2023 12:37:28 07/04/20 23 07/04/2023 CBC/C OMPLE TE BLD COUNT W/DIF F monocytes 4.2 % 5.0-12 .0 low Not Available [facility] (Lab) [address] [place], [address], 07/04/2023 12:37:28 07/04/20 23 07/04/2023 CBC/C OMPLE TE BLD COUNT W/DIF F eosinophils 1.9 % 1.0-7. 0 Not Available [facility] (Lab) [address] [place], [address], 07/04/2023 12:37:28 07/04/20 23 07/04/2023 CBC/C OMPLE TE BLD COUNT W/DIF F basophils 0.6 % 0.0-2. 0 Not Available [facility] (Lab) [address] [place], [address], 07/04/2023 12:37:28 07/04/20 23 07/04/2023 CBC/C OMPLE TE BLD COUNT W/DIF F immature granulocytes 0.8 % 0.00-0 .50 high Not Available [facility] (Lab) [address] [place], [address], 07/04/2023 12:37:28 07/04/20 23 07/04/2023 CBC/C OMPLE TE BLD COUNT W/DIF F neutrophils, absolute count 8.31 x10'3 /uL 1.5-8. 0 high Not Available [facility] (Lab) [address] [place], [address], 07/04/2023 12:37:28 07/04/20 23 07/04/2023 CBC/C OMPLE TE BLD COUNT W/DIF F lymphocytes, absolute count 2.27 x10'3 /uL 1.07-3 .43 Not Available [facility] (Lab) [address] [place], [address], 07/04/2023 12:37:28 07/04/20 23 07/04/2023 CBC/C OMPLE TE BLD COUNT W/DIF F monocytes, absolute count 0.48 x10'3 /uL 0.29-0 .99 Not Available [facility] (Lab) [address] [place], [address], 07/04/2023 12:37:28 07/04/20 23 07/04/2023 CBC/C OMPLE TE BLD COUNT W/DIF F eosinophils, absolute count 0.22 x10'3 /uL 0.02-0 .53 Not Available [facility] (Lab) [address] [place], [address], 07/04/2023 12:37:28 07/04/20 23 07/04/2023 CBC/C OMPLE TE BLD COUNT W/DIF F basophils, absolute count 0.07 x10'3 /uL 0.01-0 .08 Not Available [facility] (Lab) [address] [place], [address], 07/04/2023 12:37:28 07/04/20 23 07/04/2023 CBC/C OMPLE TE BLD COUNT W/DIF F immature granulocytes ,absolute 0.09 x10'3 /uL 0.00-0 .05 high Not Available [facility] (Lab) [address] [place], [address], 07/04/2023 12:37:28 07/04/20 23 07/04/2023 CBC/C OMPLE TE BLD COUNT W/DIF F nucleated red blood cells 0.0 % -0 Not Available [facility] (Lab) [address] [place], [address], 07/04/2023 12:37:28 07/04/20 23 07/04/2023 CBC/C OMPLE TE BLD COUNT W/DIF F NRBC# 0.00 x10'3 /uL Not Available [facility] (Lab) [address] [place], [address], 07/04/2023 12:37:28 07/04/20 23 07/04/2023 COMPR EHENS ANDRIY METAB OLIC PANEL sodium 139 mmol/ L 137-14 5 Not Available [facility] (Lab) [address] [place], [address], 07/04/2023 12:50:43 07/04/20 23 07/04/2023 COMPR EHENS ANDRIY METAB OLIC PANEL potassium 4.7 mmol/ L 3.5-5. 1 Not Available [facility] (Lab) [address] [place], [address], 07/04/2023 12:50:43 07/04/20 23 07/04/2023 COMPR EHENS ANDRIY METAB OLIC PANEL chloride 100 mmol/ L 98-107 Not Available [facility] (Lab) [address] [place], [address], 07/04/2023 12:50:43 07/04/20 23 07/04/2023 COMPR EHENS ANDRIY METAB OLIC PANEL carbon dioxide 30 mmol/ L 22-30 Not Available [facility] (Lab) [address] [place], [address], 07/04/2023 12:50:43 07/04/20 23 07/04/2023 COMPR EHENS ANDRIY METAB OLIC PANEL anion gap 13.7 mmol/ L 14-22 low Not Available [facility] (Lab) [address] [place], [address], 07/04/2023 12:50:43 07/04/20 23 07/04/2023 COMPR EHENS ANDRIY METAB OLIC PANEL glucose 215 mg/dL 70-99 high Not Available [facility] (Lab) [address] [place], [address], 07/04/2023 12:50:43 07/04/20 07/04/2023 COMPR EHENS ANDRIY METAB OLIC PANEL BUN 24 mg/dL 8-19 high Not Available [facility] (Lab) [address] [place], [address], 07/04/2023 12:50:43 07/04/20 23 07/04/2023 COMPR EHENS ANDRIY METAB OLIC PANEL creatinine 1.49 mg/dL 0.66-1 .25 high Not Available [facility] (Lab) [address] [place], [address], 07/04/2023 12:50:43 07/04/20 23 07/04/2023 COMPR EHENS ANDRIY METAB OLIC PANEL GFR 36 Refer ence Range : Law[place] ge GFR Healt hy Adult : >60 [...] or ethni c subgr oups, such as de nics. Outsi de the valid ated aaliyah [...] calcu lator is avail able on the [facility] websi te: https :[email or web address] looney.o rg/pr ofess ional s/kdo qi/gf r_cal culat or Not Available [facility] (Lab) [address] [place], [address], 07/04/2023 12:50:43 07/04/20 23 07/04/2023 COMPR EHENS ANDRIY METAB OLIC PANEL alkaline phosphatase 129 U/L 38-126 high Not Available [facility] (Lab) [address] [place], [address], 07/04/2023 12:50:43 07/04/20 23 07/04/2023 COMPR EHENS ANDRIY METAB OLIC PANEL alanine aminotransfe rase 23 U/L 0-35 Not Available [facility] (Lab) [address] [place], [address], 07/04/2023 12:50:43 07/04/20 23 07/04/2023 COMPR EHENS ANDRIY METAB OLIC PANEL aspartate aminotransfe rase 22 U/L 15-37 Not Available [facility] (Lab) [address] [place], [address], 07/04/2023 12:50:43 07/04/20 23 07/04/2023 COMPR EHENS ANDRIY METAB OLIC PANEL bilirubin, total 0.60 mg/dL 0.20-1 .30 Not Available [facility] (Lab) [address] [place], [address], 07/04/2023 12:50:43 07/04/20 23 07/04/2023 COMPR EHENS ANDRIY METAB OLIC PANEL calcium 9.3 mg/dL 8.4-10 .2 Not Available [facility] (Lab) [address] [place], [address], 07/04/2023 12:50:43 07/04/20 23 07/04/2023 COMPR EHENS ANDRIY METAB OLIC PANEL total protein 7.7 g/dL 6.3-8. 2 Not Available [facility] (Lab) [address] [place], [address], 07/04/2023 12:50:43 07/04/20 23 07/04/2023 COMPR EHENS ANDRIY METAB OLIC PANEL albumin 4.0 g/dL 3.4-5. 0 Not Available [facility] (Lab) [address] [place], [address], 07/04/2023 12:50:43 07/04/20 23 07/04/2023 COMPR EHENS ANDRIY METAB OLIC PANEL globulin 3.7 g/dL 2.6-4. 2 Not Available [facility] (Lab) [address] [place], [address], 07/04/2023 12:50:43 07/04/2007/04/2023 COMPR EHENS ANDRIY METAB OLIC PANEL A/G ratio 1.1 ratio 1.0-2. 0 Not Available [facility] (Lab) [address] [place], [address], 07/04/2023 12:50:43 07/04/20 23 07/04/2023 LIPID PANEL cholesterol 145 mg/dL 140-19 9 NIH TY NSUS RECOM MENDA TION FOR CACHORRO STERO L: ADULT CHILD LOW RISK: <200 <170 BORDE RLINE : <200- 239 ----- HIGH RISK: >240 >200 Not Available [facility] (Lab) [address] [place], [address], 07/04/2023 12:51:12 07/04/20 23 07/04/2023 LIPID PANEL triglyceride s 409 mg/dL 0-150 high NIH TY NSUS REPOR T RECOM MENDA TION FOR TRIGL YCERI BREN: ADULT CHILD LOW RISK: <150 ----- BODER LINE: 150-1 99 ----- HIGH RISK: >200 ----- Not Available [facility] (Lab) [address] [place], [address], 07/04/2023 12:51:12 07/04/20 23 07/04/2023 LIPID PANEL HDL cholesterol 42 mg/dL 40- Not Available [facility] (Lab) [address] [place], [address], 07/04/2023 12:51:12 07/04/20 23 07/04/2023 T3 FREE free T3 3.8 pg/mL 2.77-5 .27 Not Available [facility] (Lab) [address] [place], [address], 07/04/2023 12:59:15 07/04/20 23 07/04/2023 T4 FREE free T4 0.90 NG/dL 0.78-2 .19 Not Available [facility] (Lab) [address] [place], [address], 07/04/2023 12:59:20 07/04/20 23 07/04/2023 BNP/B -NATR IURET IC PEPTI DE BNP 24 pg/mL 4-125 Not Available [facility] (Lab) [address] [place], [address], 07/04/2023 13:09:42 07/04/20 23 07/04/2023 HEMOG LOBIN A1C HA1C 6.4 % 4.0-6. 0 high Diabe laureano Scree emile Crite fela: <5.7% Consi stent with absen ce of diabe laureano 5.7-6 .4% Consi stent with incre ased risk for diabe laureano (pred iabet es) >OR=6 .5% Consi stent with diabe laureano REFER ENCE: Diabe laureano Care 2016, 39(Delgadillo ppl.1 ):s13 -s22 Not Available [facility] (Lab) [address] [place], [address], 07/04/2023 13:19:43 07/04/20 23 07/04/2023 TSH thyroid-stim ulating hormone 1.060 uIU/m L 0.465- 4.680 Not Available [facility] (Lab) [address] [place], [address], 07/04/2023 13:23:28 06/25/20 24 06/24/2024 US, echoc ardio gram, trans thora cic, compl ete, w/ color flow No observ ation record ed. [facility] [address] [place], [address], 06/27/2024 11:55:37 08/18/19 25 08/18/2024 metha choli ne chall enge* No observ ation record ed. [facility] ([facility] Sched[facility]) [address] [place], [address], 08/18/2024 17:25:06 08/20/19 25 08/18/2024 polys omnog marie, split night No observ ation record ed. [facility] [address] [place], [address], 08/20/2024 10:30:55 Result Notes None recorded. Problems Name Problem SNOMED Code Status Onset Date Resolution Date Notes Provider Name and Address Organization Details Recorded Time Disorder of lower limb 303728663 Completed Not Available [facility] 3 03:20:43 Rectal hemorrhag e 70937081 Active 2021 Not Available [facility] 3 05:19:55 Plantar fasciitis of left foot 83033376586 120529 Active 2020 Not Available [facility] 3 05:19:55 Celluliti s of skin 823874014 Completed Not Available [facility] 3 03:20:43 Open wound of finger 034657350 Completed Not Available [facility] 3 03:20:43 Hearing loss 21066486 Completed Not Available [facility] 3 03:20:43 Subarachn oid hemorrhag e 18450326 Active Not Available [facility] 3 05:19:56 Incisiona l hernia 822792156 Active Not Available [facility] 3 05:19:56 Morbid obesity 341693932 Active Not Available [facility] 3 05:19:56 Osteoarth ritis of knee 621292340 Active Not Available [facility] 3 05:19:56 Lesion of external ear 712043001 Completed Not Available [facility] 3 03:20:44 Type 2 diabetes mellitus without complicat ion 212426296 Active Not Available [facility] 3 05:19:56 Nausea 520875802 Completed Not Available [facility] 3 03:20:44 Type 2 diabetes mellitus 43334539 Completed Not Available [facility] 3 03:20:45 Wheezing 80489958 Completed Not Available [facility] 3 03:20:45 Essential hypertens ion 10486013 Active 2016 Not Available [facility] 3 05:19:56 Allergic rhinitis 02186533 Active 2016 Not Available [facility] 3 05:19:56 Diarrhea 47217346 Completed Not Available [facility] 3 03:20:45 Venous stasis 00922210 Active Not Available [facility] 3 05:19:56 Diabetes mellitus 56687698 Completed 202004/11/2021 Not Available [facility] 3 03:20:45 Obstructi ve sleep apnea syndrome 98880939 Active 2016 Not Available [facility] 3 05:19:56 Nocturnal enuresis 4695149 Active Not Available [facility] 3 05:19:56 Skin lesion 48960858 Completed Not Available [facility] 3 03:20:46 Periodic limb movement disorder 787998541 Active 2023 Cory Ortiz MD [address], [address], [place], [address] , [employer] [facility] [employer] [facility] 4 16:38:06 Chronic kidney disease 323604999 Active 2023 Cory Ortiz MD [address], [address], [place], [address] , [facility] [employer] [facility] 4 16:38:11 Atrial fibrillat ion 72580646 Active 2023 Cory Ortiz MD [address] [facility], [address], [place], [address] , [employer] 4 10:35:41 Mild persisten t asthma 257128365 Active 2024 Cory Ortiz MD [address] [facility], [address], [place], [address] , [employer] 5 10:49:06 Notes:Medical History: Subar achnoid hemorrhage [...] osteoarthritis Left plantar fasciitis Procedure History: T&A 1972 Laparoscopic cholecystectomy 1999 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 Procedures Surgical History Date Name Laterality Status Provider Name and Address Organization Details Recorded Time 07/04/20 23 Transitional_Care_ Management completed Tran Cooper MA [employer] 07/04/2023 11:00:21 11/12/19 23 Medicare Wellness CPT Code, subsequent completed Naomi Sanches RN [place] [employer] [employer] 11/11/2022 14:58:28 09/05/19 22 Date of Last Colonoscopy completed Naomi Sanches RN [place] [employer] 11/11/2022 15:17:34 01/16/20 21 Date of Last Mammogram completed Naomi Sanches RN [facility] [employer] 11/11/2022 15:18:10 Colonoscopy completed Not Available [facility] 09/18/2022 03:12:34 Cholecystectomy completed Not Available [facility] 09/18/2022 03:12:34 Carpal tunnel completed Not Available [facility] 09/18/2022 03:12:34 Imaging Results None recorded. Procedure Notes None recorded. Medical Equipment None Reported. Allergies Allergen ID Allergen Name Allergen Category Reaction Reaction Severity Criticality Documentation Date Start Date Code Code System Note Provider Name and Address Organization Details Recorded Time 5980 vancomyci n medicatio n angioedem a severe Not available 09/18/2022 48023 RxNorm Not Available [facility] 3 03:31:31 5981 Substance with sulfonami de structure and antibacte rial mechanism of action (substanc e) medicatio n hives Not available Not available 09/18/2022 09202 8003 SNOMED Not Available [facility] 3 03:31:32 5982 morphine medicatio n itching Not available Not available 09/18/2022 7052 RxNorm mood duval es Not Available [facility] 3 03:31:32 5983 latex environme nt,medica tion rash Not available Not available 09/18/2022 83776 91 RxNorm Not Available [facility] 3 03:31:32 5984 clindamyc in Not available Not available Not available Not available 09/18/2022 2582 RxNorm Not Available [facility] 3 03:31:32 5985 Augmentin medicatio n hives severe Not available 09/18/2022 19618 2 RxNorm Not Available [facility] 3 03:31:32 Medications Name Sig Start Date Stop [...] TAKE 1 TABLET BY MOUTH TWICE DAILY active Not Available Not Available No t Available esomepraz ole magnesium 40 mg capsule,d [...] Available Not Available Not Available brimonidi ne 0.2 % eye drops [...] No t Available Nasonex 50 mcg/actua tion [place] USE 2 SPRAYS IN EACH NOSTRIL ONCE DAILY 10/08 completed Not Available Not Available Not Available methylpre dnisolone 4 mg tablets in a dose pack take decreasi ng doses as directed 06/02 completed Not Available Not Available Not Available albuterol sulfate HFA 90 mcg/actua tion aerosol inhaler Inhale 1 puff every 4 hours by inhalati on route as needed. 2024 active Not Available Not Available Not Avai lable celecoxib 100 mg capsule 03/26 completed Not [...] active Not Available Not Available Not Available Flovent HFA 44 mcg/actua tion aerosol inhaler Inhale 2 puffs twice a day by inhalati on route. 2024 active Not Available Not Available Not Avai lable Asmanex Twisthale r 220 mcg/actua tion(60 doses) [...] Available Not Available No t Available OneTouch Delica Lancets 33 gauge TEST ONCE DAILY 04/11 [...] Not Available Not Available Vitals Date Recorded Heart rate Respiratory rate Body temperature Provider Name and Address Organization Details Last Updated DateTime 08/23/2024 82 /min 15 /min 98.3 [degF] Cory Ortiz MD [address], [place], [address], [facility] [employer] 08/23/2024 11:13:01 Date Recorded Body height Body mass index (BMI) Body weight Heart rate Oxygen saturation Oxygen saturation in Arterial blood by Pulse oximetry Systolic blood pressure Diastolic blood pressure Provider Name and Address Organization Details Last Updated DateTime 160.02 cm 59.3 kg/m2 861026. 44 g 82 /min 96 % 96 % 118 mm[Hg] 80 mm[Hg] Tran Cooper MA [employer] [facility] [employer] 10:57:15 Date Recorded Heart rate Heart rate Respiratory rate Provider Name and Address Organization Details Last Updated DateTime 11/22/2024 79 /min 79 /min 14 /min Cory Ortiz MD [address] [place], [address] [employer] [facility] 11/22/2024 11:03:58 Date Recorded Body height Body mass index (BMI) Body weight Body temperature Oxygen saturation Oxygen saturation in Arterial blood by Pulse oximetry Systolic blood pressure Diastolic blood pressure Provider Name and Address Organization Details Last Updated DateTime 5 160.02 cm 59.3 kg/m2 372043. 44 g 97.9 [degF] 96 % 96 % 128 mm[Hg] 84 mm[Hg] Tran Cooper MA [facility] [employer] [facility] 5 10:45:24 Date Recorded Heart rate Respiratory rate Provider N noel and Address Organization Details Last Updated DateTime 06/15/2024 80 /min 15 /min Cory Ortiz MD [address] [facility] [address], [place], [address] [employer] [facility] 06/15/2024 16:45:48 Date Recorded Body height Body mass index (BMI) Body weight Body temperature Heart rate Oxygen saturation Oxygen saturation in Arterial blood by Pulse oximetry Systolic blood pressure Diastolic blood pressure Provider Name and Address Organization Details Last Updated DateTime 4 160.02 cm 59.7 kg/m2 985339. 63 g 97.7 [degF] 80 /min 96 % 96 % 118 mm[Hg] 86 mm[Hg] Tran Cooper MA [facility] [employer] 4 16:24:21 Date Recorded Heart rate Respiratory rate Provider N noel and Address Organization Details Last Updated DateTime 06/30/2024 72 /min 14 /min Cory Ortiz MD [address] [address], [place], [address] [employer] [facility] 06/30/2024 11:00:49 Date Recorded Body height Body mass index (BMI) Body weight Body temperature Heart rate Oxygen saturation Oxygen saturation in Arterial blood by Pulse oximetry Systolic blood pressure Diastolic blood pressure Provider Name and Address Organization Details Last Updated DateTime 4 160.02 cm 59.7 kg/m2 832512. 63 g 98.1 [degF] 72 /min 97 % 97 % 120 mm[Hg] 82 mm[Hg] Brittany Marcano MA [place] [facility] [employer] 4 10:12:46 Date Recorded Body height Body mass index (BMI) Body weight Body temperature Heart rate Oxygen saturation Oxygen saturation in Arterial blood by Pulse oximetry Systolic blood pressure Diastolic blood pressure Provider Name and Address Organization Details Last Updated DateTime 3 160.02 cm 58.5 kg/m2 756807. 48 g 96.5 [degF] 86 /min 98 % 98 % 132 mm[Hg] 84 mm[Hg] Tran Cooper MA [place] [employer] [facility] 3 11:07:35 Social History Question Answer Notes LastModified by Organization Details LastModified Time Tobacco Smoking Status Former Smoker quit 2018 Not Available [employer] 09/18/2022 03:05:15 Do You Have An Advance Directive? No MIGRATION.030 088849 Information not available 09/18/2022 Are You Blind Or Do You Have Difficulty Seeing? No MIGRATION.030 749373 Information not available 09/18/2022 What Is Your Level Of Caffeine Consumption? Moderate MIGRATION.030 594849 Information not available 09/18/2022 How Much Tobacco Do You Chew? None MIGRATION.030 269829 Information not available 09/18/2022 In The 14 Days Before Symptom Onset, Have You Had Close Contact With A Laboratory-confi rmed COVID-19 While That Case Was Ill? No Information not available 11/22/2024 In The 14 Days Before Symptom Onset, Have You Had Close Contact With A Person Who Is Under Investigation For COVID-19 While That Person Was Ill? No MIGRATION.0301 [id number] Information not available 09/18/2022 Are You Deaf Or Do You Have Serious Difficulty Hearing? No MIGRATION.0301 786201 Information not available 09/18/2022 What Type Of Diet Are You Following? REGULAR MIGRATION.030 583937 Information not available 09/18/2022 What Is The Highest Grade Or Level Of School You Have Completed Or The Highest Degree You Have Received? VT23187-6 MIGRATION.030 592450 Information not available 09/18/2022 Do You Have An Electrostatic Air Filter? No MIGRATION.030 508840 Information not available 09/18/2022 Have There Been Any Changes To Your Family Or Social Situation? No MIGRATION.030 911285 Information not available 09/18/2022 What Is The Fluoride Status Of Your Home? Unknown MIGRATION.0301 848030 Information not available 09/18/2022 When Did You Quit Smoking? 1-5yearssincelastci jud MIGRATION.0301 546528 Information not available 09/18/2022 Are There Any Guns Present In Your Home? No MIGRATION.0301 740134 Information not available 09/18/2022 Do You Have A Humidifier? No MIGRATION.0301 263427 Information not available 09/18/2022 Do You Use Insect Repellent Routinely? No MIGRATION.0301 775131 Information not available 09/18/2022 Where Do You Live? SingleLevelHouse MIGRATION.0301 861083 Information not available 09/18/2022 Do You Have A Medical Power Of Manager Acquisition? Yes MIGRATION.0301 029121 Information not available 09/18/2022 Do You Have Moisture Problems In Your Home? No MIGRATION.0301 362399 Information not available 09/18/2022 What Was The Date Of Your Most Recent Tobacco Screening? 11/22/2024 Information not available 11/22/2024 What Is Your Current Pack Years? 10-19packyears [email or web address] Information not available 11/11/2022 Do You Have Any Pets? Yes MIGRATION.0301 748940 Information not available 09/18/2022 What Is Your Relationship Status? MIGRATION.0301 472702 Information not available 09/18/2022 Do You Use Your Seat Belt Or Car Seat Routinely? Yes MIGRATION.0301 644632 Information not available 09/18/2022 Do You Have Smoke And Carbon Monoxide Detectors In Your Home? Yes MIGRATION.0301 097085 Information not available 09/18/2022 Are You Passively Exposed To Smoke? No MIGRATION.0301 632612 Information not available 09/18/2022 Are There Any Smokers In Your House? No MIGRATION.0301 593449 Information not available 09/18/2022 How Much Tobacco Do You Smoke? No MIGRATION.0301 560892 Information not available 09/18/2022 What Types Of Sporting Activities Do You Participate In? None MIGRATION.0301 438493 Information not available 09/18/2022 Do You Use Sunscreen Routinely? No MIGRATION.0301 902481 Information not available 09/18/2022 Has Tobacco Cessation Counseling Been Provided? No MIGRATION.0301 362010 Information not available 09/18/2022 Have You Recently Traveled Abroad? No MIGRATION.0301 170311 Information not available 09/18/2022 Have You Used IV Drugs? No MIGRATION.0301 557002 Information not available 09/18/2022 Do You Have Difficulty Walking Or Climbing Stairs? Yes MIGRATION.0301 506432 Information not available 09/18/2022 Do You Have Any Dietary Restrictions? No MIGRATION.0301 946612 Information not available 09/18/2022 Sex: Female Functional Status Question Answer Note LastModified by Organizat ion Details LastModified Time Do you use any illicit or recreational drugs? Yes MIGRATION.340768 5299 Information not available 09/18/2022 Do you or have you ever used any other forms of tobacco or nicotine? No MIGRATION.456686 1609 Information not available 09/18/2022 What is your level of alcohol consumption? None MIGRATION.358022 2995 Information not available 09/18/2022 Do you or have you ever used smokeless tobacco? Never used smokeless tobacco MIGRATION.520365 6807 Information not available 09/18/2022 Are you currently employed? No Information not available 11/22/2024 Have you been exposed to chemicals or toxins? not that aware of Information not available 06/15/2024 Do you have difficulty doing errands alone? 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 No MIGRATION.898773 1609 Information not available 09/18/2022 Do you or have you ever used e-cigarettes or vape? Never used electronic cigarettes MIGRATION.769093 4365 Information not available 09/18/2022 What is your exercise level? None MIGRATION.068254 2317 Information not available 09/18/2022 Mental Status Question Answer Note LastModified by Organizat ion Details LastModified Time Do you feel stressed (tense, restless, nervous, or anxious, or unable to sleep at night)? [id number] MIGRATION.42293970 26 Information not available 09/18/2022 Do you have difficulty concentrating, remembering or making decisions? No MIGRATION.77154812 26 Information not available 09/18/2022 Family History Relationship Description Onset Age of this Age Resolved Age Notes LastModified by Organization Details LastModified Time Mother Heart disease MIGRATION.436 [id number] Not available 09/18/2022 03:12:38 Mother Diabetes mellitus MIGRATION.355 3619741 Not available 09/18/2022 03:12:38 Mother Cerebrovascu lar accident MIGRATION.991 5404889 Not available 09/18/2022 03:12:38 Mother Pulmonary embolism 70 MIGRATION.243 3795961 Not available 09/18/2022 03:12:38 Father Heart disease MIGRATION.810 1735617 Not available 09/18/2022 03:12:38 Father Diabetes mellitus MIGRATION.950 2310221 Not available 09/18/2022 03:12:38 Father Kidney disease MIGRATION.157 0143651 Not available 09/18/2022 03:12:38 Maternal Aunt Malignant tumor of breast MIGRATION.804 6733237 Not available 09/18/2022 03:12:38 Medical History Condition [...] HAVE YOU BEEN HOSPITALIZED OR SEEN IN [facility] IN THE PAST YEAR ? N [...] Immunizations Vaccine Type Date Status Note Provider Tramaine barragan and Address Organization Details Recorded Time COVID-19, mRNA, LNP-S, PF, 100 mcg/0.5mL dose or 50 mcg/0.25mL dose 12/16/2020 completed Not Available [facility] 3 05:19:59 COVID-19, mRNA, LNP-S, PF, 100 mcg/0.5mL dose or 50 mcg/0.25mL dose 11/17/2020 completed Not Available [facility] 3 05:19:59 Influenza, split virus, quadrivalent, PF 06/07/2020 completed Not Available [facility] 3 05:19:59 Influenza, MDCK, quadrivalent, PF 08/07/2018 completed Not Available [facility] 3 05:19:59 Influenza, split virus, quadrivalent, PF 06/02/2017 completed Not Available [facility] 3 05:19:59 Past Encounters Encounter ID Performer Location Encounter Start Date Encounter Closed Date Diagnosis/Indication Diagnosis SNOMED-CT Code Diagnosis ICD10 Code Diagnosis Note [id number] Maykel Lindsay MD [facility] Internal Med [facility] [address] [address] 10/04/2020 00:00:00 10/15/2020 18:50:39 [id number] Maykel Lindsay MD [facility] Internal Med [facility] 15 [address]43 [facility] [address] 01/10/2021 00:00:00 01/12/2021 15:52:07 [id number] [facility] [place] [address] [place] [address] 02/15/2021 00:00:00 02/15/2021 13:29:53 [id number] [facility] [place] [address] [place] [address] 03/19/2021 00:00:00 03/19/2021 11:03:18 [id number] Maykel Lindsay MD [facility] Internal Med [address] [address] 04/11/2021 00:00:00 05/06/2021 12:43:52 [id number] MD TING [facility] [address] [address] 04/16/2021 00:00:00 04/16/2021 10:48:58 [id number] Cory Ortiz MD [facility] [address] 04/24/2021 00:00:00 04/24/2021 11:49:59 [id number] Cory Ortiz MD [facility]mon[address] [address] 06/26/2021 00:00:00 06/26/2021 14:39:09 [id number] Maykel Lindsay MD [facility] Internal Med [address] [address] 07/04/2021 00:00:00 07/21/2021 15:56:56 [id number] Maykel Lindsay MD [facility] [address] [address] 10/10/2021 00:00:00 10/22/2021 21:46:49 [id number] Maykel Lindsay MD [facility] Internal Med Delia aleman [address] [place] [address] , [facility] [place] [address] 11/08/2021 00:00:00 11/08/2021 20:57:35 [id number] Cory Ortiz MD [facility] [address] [place] [address] 04/17/2022 00:00:00 04/17/2022 12:36:26 [id number] Cory Ortiz MD [facility] [address] [place] [address] 05/07/2022 00:00:00 05/07/2022 15:43:14 [id number] Maykel Lindsay MD [facility] Internal Med [facility] [address] [place] [address] 06/24/2022 00:00:00 06/24/2022 22:34:12 [id number] Maykel Lindsay MD [facility] Internal Med [facility] [address] [place] [address] 10/14/2022 14:09:16 10/14/2022 15:01:13 Pain of left hip joint 3333675796 80878 M25.552 [id number] Maykel Lindsay MD [facility] Internal Med [facility] [address] [place] [address] 11/11/2022 14:15:44 11/11/2022 15:05:09 Adult health examination 208293807 Z00.00 Screening for disorder 272232063 Z13.9 Essential hypertension 83731088 I10 Type 2 cecilio betes mellitus without complication 644703143 E11.9 Urinary tr act infectious disease 70450905 N39.0 Pain of bi lateral knee joints 0809879814 79326 M25.561 [id number] Maykel Lindsay MD [facility] Internal Med [facility] [address] [place] [address] 03/10/2023 14:39:07 03/10/2023 15:08:58 Essential hypertension 10965631 I10 Type 2 cecilio betes mellitus without complication 887051324 E11.9 Pain of le ft knee joint 8757193394 80261 M25.562 Body mass index 40+ - severely obese 668834595 Z68.41 Asthma 021672366 J45.90 9 Venous stasis 85166401 I 87.8 [id number] Maykel Lindsay MD [facility] Internal Med [address] [address] 07/04/2023 10:37:33 07/04/2023 11:13:52 Essential hypertension 02231837 I10 Type 2 cecilio betes mellitus without complication 199418294 E11.9 Asthma 023094928 J45.90 9 Body mass index 40+ - severely obese 558142064 Z68.41 Hypocholesterolemia 6133 6008 E78.6 Morbid obesity 613445987 E66.01 Venous stasis 55153315 I 87.8 [id number] Cory Ortiz MD [place] [address] 06/15/2024 15:59:05 07/19/2024 11:29:06 Chronic kidney disease 085823374 N18.9 Dyspnea on exertion 6084 5006 R06.09 Obstructiv e sleep apnea syndrome 47119825 G47.33 G47.30 G47.61 G47.36 [id number] Cory Ortiz MD [place] [address] 06/30/2024 09:58:26 06/30/2024 16:32:53 Chronic kidney disease 477610465 N18.9 Dyspnea on exertion 6084 5006 R06.09 Obstructiv e sleep apnea syndrome 12373165 G47.33 G47.30 G47.61 G47.36 Atrial fibrillation 4943 6004 I48.91 [id number] Cory Ortiz MD [place] [id number] 08/23/2024 10:37:00 08/23/2024 12:07:37 Obstructive sleep apnea syndrome 78869376 G47.33 Mild persi stent asthma 328478023 J45.30 [id number] Cory Ortiz MD [facility] [address] [address] 11/22/2024 10:17:08 11/23/2024 15:53:42 Obstructive sleep apnea syndrome 63730051 G47.33 Mild persi stent asthma 248976913 J45.30 Health Concerns Section Related Observation LastModified by Organization Detai ls LastModified Time None Recorded Concern Status LastModified by Organization Details LastModified Time None Recorded Advance Directives Directive N: Payers Encounter Date Sequence Insurance Name Policy Number Policy Walden Covered Member ID Walden Member ID Guarantor Name 07/04/2023 1 [place] Kathleen Oreilly [id number] Kathleen Sevilla Oreilly 07/04/2023 2 [place] [facility] Kathleen Oreilly [id number] Kathleen Sevilla Oreilly 06/15/2024 1 [place] Kathleen Oreilly [id number] Kathleen Sevilla Oreilly 06/15/2024 2 [facility] (MEDICAID HMO) [id number] Kathleen Oreilly [id number] Kathleen Sevilla Oreilly 06/30/2024 1 [place] Kathleen Sevilla Oreilly [id number] Kathleen Sevilla Oreilly 06/30/2024 2 [place] WHEN MED[place]ARE OR MEDICARE REPLACEMENT PRIMARY) Kathleen Oreilly [id number] Kathleen Sevilla Oreilly 08/23/2024 1 [place] Kathleen Oreilly [id number] Kathleen Sevilla Oreilly 08/23/2024 2 [place] OR MEDIC[place] REPLACEMENT PRIMARY) Kathleen Oreilly [id number] Kathleen Sevilla Oreilly 11/22/2024 1 [place] Kathleen Oreilly [id number] Kathleen Oreilly Notes Date Note Type Note Provider Name and Address Organization Details Recorded Time 07/04/2023 text/html 1. She was going to [...] evaluation for this Maykel Lindsay MD [address], [address], [place], [address], [place] [facility] [employer] 07/05/2023 15:24:46 06/15/2024 text/html Primary care/Ref erring provider: Evens Crowell, MDPatient is here to go over her shortness of breath evaluation/management.I nitial development of shortness of breath: 2012Duration of shortness of breath: 12 yearsCondition of shortness of breath: stableTiming of shortness of breath: night timeFrequency: up to 4 times a dayLimits activities: yesAggravating factors: walkingAlleviating factors: restModified [employer] (mMRC) Dyspnea Scale - Grade 2Grade 0 [...] swallowing: noPalpitations: noHeartburn: noEdema: yesEnvironmental exposures:Nicotine smoke: / ppd 5713-7017 = 5 pack yearsPaint: noDye: noDust mites: yesMold: yesDamp basement: noWood burning stove: noAnimal dander: dogs and catsCockroaches: noPollen: yesArsenic: noAsbestos: noBeryllium: noCadmium: noChromium: noCoal smoke: noDiesel fumes: noNickel: noSilica: noSoot: benjaHer [facility] diagnostic sleep study on 04/16/17 showed a [...] high chance of dozing. Cory Ortiz MD [address] [place] [address], [address], [place] [facility] [employer] 06/15/2024 16:59:09 06/30/2024 text/html Primary care/Ref erring [...] yesAggravating factors: walkingAlleviating factors: restModified [employer] (mMRC) Dyspnea Scale - Grade 2Grade 0 [...] swallowing: noPalpitations: noHeartburn: noEdema: yesEnvironmental exposures:Nicotine smoke: / ppd 4024-4659 = 5 pack yearsPaint: noDye: noDust mites: yesMold: yesDamp basement: noWood burning stove: noAnimal dander: dogs and catsCockroaches: noPollen: yesArsenic: noAsbestos: noBeryllium: noCadmium: noChromium: noCoal smoke: noDiesel fumes: noNickel: noSilica: noSoot: noHer [facility] diagnostic sleep study on 04/16/17 showed a [...] high chance of dozing. Cory Ortiz MD [address] [place] [address], [address], [place] [facility] [employer] 06/30/2024 11:01:13 08/23/2024 text/html Primary care/Ref erring [...] yesAggravating factors: walkingAlleviating factors: restModified [employer] (mMRC) Dyspnea Scale - Grade 2Grade 0 [...] noHeartburn: noEdema: yesEnvironmental exposures:Nicotine smoke: 07/23 ppd 8120-4954 = 5 pack yearsPaint: noDye: noDust mites: yesMold: yesDamp basement: noWood burning stove: noAnimal dander: dogs and catsCockroaches: noPollen: yesArsenic: noAsbestos: noBeryllium: noCadmium: noChromium: noCoal smoke: noDiesel fumes: noNickel: noSilica: noSoot: noDuring the [facility] diagnostic sleep study on 04/16/17, PLMI = 10. She has CKD. During the [facility] split night sleep study on 08/18/24, sleep [...] high chance of dozing. Cory Ortiz MD [address] [place] [address], [place], [address], [facility] [employer] [facility] 08/23/2024 11:32:44 11/22/2024 text/html Primary care/Ref erring provider: Evens Crowell, MDPatient is here to go over her asthma management.Initial development of shortness of breath: 2012Duration of shortness of breath: 13 yearsCondition of shortness of breath: stableTiming of shortness of breath: night timeFrequency: up to 1 time a dayLimits activities: yesAggravating factors: walkingAlleviating factors: restModified [employer] (mMRC) Dyspnea Scale - Grade 2Grade 0 [...] house or I am breathless when dressing . Patient's personal best peak flow remains at 330 L/min.Treatment history:albuterol HFA as needed since lbuterol nebs as needed since Flovent HFA 44 mcg 2 puffs BID since 08/2024Other symptoms:Drooling: noDysarthria: noDysphagia: noWeak mastication: noFacial weakness: noNasal speech: noProtruding tongue: noProductive cough: noWheezing: noChest tightness: yesOrthopnea: noFrequent throat clearing or swallowing: noPalpitations: noHeartburn: noEdema: yesEnvironmental exposures:Nicotine smoke: 07/23 ppd 2965-1020 = 5 pack yearsPaint: noDye: noDust mites: yesMold: yesDamp basement: noWood burning stove: noAnimal dander: dogs and catsCockroaches: noPollen: yesArsenic: noAsbestos: noBeryllium: noCadmium: noChromium: noCoal smoke: noDiesel fumes: noNickel: noSilica: noSoot: noDuring the [facility] diagnostic sleep study on 04/16/17, PLMI = 10. She has CKD. During the [facility] split night sleep study on 08/18/24, sleep onset = 3.5 minutes, REM onset = 79.5 minutes, AHI = 18, REM AHI = 47, PLMI = 0.0. At home since 11/16/24, the patient uses a ResMed AirSense 11 autoset unit with heated humidification. The patient does not need the ramp to start low and go up slowly on the pressure. There is some xerostomia in a.m. There is no hose/mask condensation with water. The patient switched from a ResMed small AirFit F30 full face mask to a ResMed medium AirFit F20 full face mask without chin strap. There [...] AND CHANCE OF DOZINGSitting and reading - 2Watching television - 2Sitting inactive in a public place (e.g. a theater or meeting) - 2As a passenger in a car for an hour without a break - 2Lying down to rest in the afternoon when circumstances permit - 2Sitting and talking to someone - 1Sitting quietly after lunch without alcohol - 2In a car, while stopped for a few minutes in the traffic - 2TOTAL SCORE 15Subjectively, patient has a moderate chance of dozing. Cory Ortiz MD [address] [place] [address], [place], [address], [place] - [facility] [employer] 11/22/2024 11:04:17 OBGyn Episode No OBEpisode recorded.
--- OUTSIDE RECORDS SUMMARY | 2024-12-18 10:48 | XMS_ITS | Encounter Summary ---
Author Organization [facility] Address [address] [place] [address] Care Team Providers Care Steam Pressure Chamber Operator Name Role Phone Massiel Munoz MD Primary Care Provider + Encounter Details Date Type Department Care Team (Late st Contact Info) Description 09/25/1998 Outpatient Historical [facility] Internal Medicine [address] [address] Massiel Munoz MD [facility] [address] Social History Tobacco Use Types Packs/Day Years Used Date Smoking Tobacco: Never Assessed Comments Unknown Sex and Gender Information Value Date Recorded Sex Assigned at Not on file 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
--- OUTSIDE RECORDS SUMMARY | 2024-12-18 10:48 | XMS_ITS | Encounter Summary ---
Author Organization [facility] Address 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
--- OUTSIDE RECORDS SUMMARY | 2024-12-18 10:48 | XMS_ITS | Encounter Summary ---
Author Organization [facility] Address 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
--- OUTSIDE RECORDS SUMMARY | 2024-12-18 10:48 | XMS_ITS | CONTINUITY OF CARE DOCUMENT ---
Author Name [facility] Address Unknown Organization [facility] Address [address] [place] [address] Phone [phone] Care Team Providers Care Supervisor Electronics Inspection Name Role Phone Jackson ZABALA, Shad [place] Unavailable [phone] TERESITA LOPEZ MD Unavailable [phone] DARLING HAN MD Unavailable PROBLEMS Condition Status Date Provider Notes Cardiology examination active Carlie Neff Shortness of breath active Craig Nacht Leg edema, bilateral active Craig Nacht Palpitations active Craig Nacht Hyperlipidemia active Craig Nacht Diabetes mellitus, type 2 active Craig Nach t ENCOUNTERS Date Type Provider Location Encounter Diag nosis - In-person encounter Office Visit Shad Paz MD [facility] Office - In-person encounter Office Visit Shad Paz MD [facility] Shortness of breathLeg edema, bilateralPalpitationsHyperlipidemiaDiabetes mellitus, [...] blood pressure, diastolic 74 mm[Hg] Da vid [facility] blood pressure, systolic 107 mm[Hg] Bandar id [facility] respiratory rate E&M 14 /min Joe Mcpherson sheeba pulse rate 72 /min Joe [facility] oxygen saturation, oximetry 94 % Joe [facility] weight E&M 336 [lb_av] Joe [facility] height E&M 64 [in_i] Joe [facility] blood pressure, diastolic 74 mm[Hg] Li nkLogic [...] Payer name Policy type / Coverage type [place] [employer] [place] party [place] PART B Medicare [id number] [place] Medicaid [id number] ADVANCE DIRECTIVES Name Date DISCUSSED - NO DECISION MADE TREATMENT PLAN Date Name Performer Cardiology: D id not get NT ProBNP lab. Her lodge officer will get it. H er updated medication [...]
--- OUTSIDE RECORDS SUMMARY | 2024-12-18 10:48 | XMS_ITS | Encounter Summary ---
Author Organization [facility] Address [address] [place] [address] Care Team Providers Care Bonding Machine Operator Name Role Phone Massiel Munoz MD Primary Care Provider + Encounter Details Date Type Department Care Team (Late st Contact Info) Description 08/13/1999 Outpatient Historical [facility] Internal Medicine [address] [address] Massiel Munoz MD [facility] [address] [address] Social History Tobacco Use Types Packs/Day Years Used Date Smoking Tobacco: Never Assessed Comments Unknown Sex and Gender Information Value Date Recorded Sex Assigned at Not on file Legal Sex Female 4: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
--- OUTSIDE RECORDS SUMMARY | 2024-12-18 10:48 | XMS_ITS | Encounter Summary ---
Author Organization [facility] Address 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
--- OUTSIDE RECORDS SUMMARY | 2024-12-18 10:48 | XMS_ITS | Encounter Summary ---
Author Organization [facility] Address 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
--- OUTSIDE RECORDS SUMMARY | 2024-12-18 10:48 | XMS_ITS | Encounter Summary ---
Author Organization [facility] Address 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
--- OUTSIDE RECORDS SUMMARY | 2024-12-18 10:48 | XMS_ITS | Encounter Summary ---
Author Organization [facility] Address 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
--- OUTSIDE RECORDS SUMMARY | 2024-12-18 10:48 | XMS_ITS | Encounter Summary ---
Author Organization [facility] Address [address] [place] [address] Care Team Providers Care Floor Installation Mechanic Name Role Phone Massiel Munoz MD Primary Care Provider + Encounter Details Date Type Department Care Team (Late st Contact Info) Description 06/16/2000 Outpatient Historical [facility] Internal Medicine [facility] and [address] [place] [address] Fabiola Knight MD [address] [facility] [address] [place] [address] Social History Tobacco Use Types Packs/Day Years Used Date Smoking Tobacco: Never Assessed Comments Unknown Sex and Gender Information Value Date Recorded Sex Assigned at Not on file Legal Sex Female 4: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
[2024-12-18 10:51] VITALS: BP 132/86; PULSE 94; RESP 20; TEMP 36.7; O2SAT 97
--- OUTSIDE RECORDS SUMMARY | 2024-12-18 12:43 | XMS_ITS | Encounter Summary ---
Author Organization [facility] Address [address] [place] [address] Care Team Providers Care Music Educator Name Role Phone Massiel Munoz MD Primary Care Provider + Encounter Details Date Type Department Care Team (Late st Contact Info) Description 05/13/2000 Outpatient Historical [facility] Internal Medicine [address] [phone] John Parry Social History Tobacco Use Types [...] on filedocumented in this encounter Care Teams Music Educator Relationship Specialty Start Date End Date Massiel Munoz MD [address] [phone] PCP - General 09/30/00 documented as of this encounter
--- OUTSIDE RECORDS SUMMARY | 2024-12-18 12:43 | XMS_ITS | Encounter Summary ---
Author Organization [facility] Address [address] [place] [address] Care Team Providers Care Embedded Systems Software Developer Name Role Phone Massiel Munoz MD Primary [...] on file Legal Sex Female 4:00 AM BILLPOSTER Gender Identity Not on file Sexual Orientation Not on file documented as of this encounter Plan of Treatment Not on file documented as of this encounter Visit Diagnoses Diagnosis Other disorder of menstruation and other abnormal bleeding from female genital tract- Primary documented in this encounter Care Teams Embedded Systems Software Developer Relationship Specialty Start Date End Date Massiel Munoz MD [address] [phone] PCP - General 09/30/00 documented as of this encounter
--- OUTSIDE RECORDS SUMMARY | 2024-12-18 12:43 | XMS_ITS | Encounter Summary ---
Author Organization [facility] Address 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
--- OUTSIDE RECORDS SUMMARY | 2024-12-18 12:43 | XMS_ITS | Encounter Summary ---
Author Organization [facility] Address [address] [place] [address] Care Team Providers Care Spanish Speaking Nanny Name Role Phone Massiel Munoz MD Primary Care Provider + Encounter Details Date Type Department Care Team (Late st Contact Info) Description 01/06/2001 Outpatient Historical [address] [address] Mandy Aguilar MD NO ADDRESS ON FILE Social History Tobacco Use Types Packs/Day Years Used Date Smoking Tobacco: Never Assessed Comments Unknown Sex and Gender Information Value Date Recorded Sex Assigned at Not on file Legal Sex Female 4:00 AM CRUCIBLE PACKER Gender Identity Not on file Sexual Orientation Not on file documented as of this encounter Plan of Treatment Not on file documented as of this encounter Visit Diagnoses Not on filedocumented in this encounter Care Teams Spanish Speaking Nanny Relationship Specialty Start Date End Date Massiel Munoz MD [address] [phone] PCP - General 09/30/00 documented as of this encounter
--- OUTSIDE RECORDS SUMMARY | 2024-12-18 12:43 | XMS_ITS | Encounter Summary ---
Author Organization [facility] Address [address] [place] [address] Care Team Providers Care Identifier Horse Name Role Phone Massiel Munoz MD Primary Care Provider + Encounter Details Date Type Department Care Team (Late st Contact Info) Description 03/01/1999 Outpatient Historical [address] [address] Mandy Aguilar MD NO ADDRESS ON FILE Social History Tobacco Use Types Packs/Day Years Used Date Smoking Tobacco: Never Assessed Comments Unknown Sex and Gender Information Value Date Recorded Sex Assigned at Not on file Legal Sex Female 4:00 AM HEALTH CARE RECRUITER Gender Identity Not on file Sexual Orientation Not on file documented as of this encounter Plan of Treatment Not on file documented as of this encounter Visit Diagnoses Not on filedocumented in this encounter Care Teams Identifier Horse Relationship Specialty Start Date End Date Massiel Munoz MD [address] [phone] PCP - General 09/30/00 documented as of this encounter
--- OUTSIDE RECORDS SUMMARY | 2024-12-18 12:43 | XMS_ITS | Encounter Summary ---
Author Organization [facility] Address [address] [place] [address] Care Team Providers Care Shop Fitter Name Role Phone Massiel Munoz MD Primary Care Provider + Encounter Details Date Type Department Care Team (Late st Contact Info) Description 10/05/1998 Outpatient Historical [facility] Internal Medicine [address] [address] Massiel Munoz MD [facility] [address] [address] Social History Tobacco Use Types Packs/Day Years Used Date Smoking Tobacco: Never Assessed Comments Unknown Sex and Gender Information Value Date Recorded Sex Assigned at Not on file Legal Sex Female 4: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
--- OUTSIDE RECORDS SUMMARY | 2024-12-18 12:43 | XMS_ITS | Encounter Summary ---
Author Organization [facility] Address [address] [place] [address] Care Team Providers Care Superintendent Oil Field Drilling Name Role Phone Massiel Munoz MD Primary Care Provider + Encounter Details Date Type Department Care Team (Late st Contact Info) Description 03/01/1999 Outpatient Historical [facility] Internal Medicine [address] [address] Massiel Munoz MD [facility] [address] [address] Social History Tobacco Use Types Packs/Day Years Used Date Smoking Tobacco: Never Assessed Comments Unknown Sex and Gender Information Value Date Recorded Sex Assigned at Not on file 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
--- OUTSIDE RECORDS SUMMARY | 2024-12-18 12:43 | XMS_ITS | Encounter Summary ---
Author Organization [facility] Address [address] [place] [address] Care Team Providers Care Carpet Layer Name Role Phone Massiel Munoz MD Primary Care Provider + Encounter Details Date Type Department Care Team (Late st Contact Info) Description 06/18/1999 Outpatient Historical [address] [address] Mandy Aguilar MD NO ADDRESS ON FILE Social History Tobacco Use Types Packs/Day Years Used Date Smoking Tobacco: Never Assessed Comments Unknown Sex and Gender Information Value Date Recorded Sex Assigned at Not on file Legal Sex Female 4:00 AM PUBLIC HEALTH SERVICE OFFICER Gender Identity Not on file Sexual Orientation Not on file documented as of this encounter Plan of Treatment Not on file documented as of this encounter Visit Diagnoses Not on filedocumented in this encounter Care Teams Carpet Layer Relationship Specialty Start Date End Date Massiel Munoz MD [address] [phone] PCP - General 09/30/00 documented as of this encounter
--- OUTSIDE RECORDS SUMMARY | 2024-12-18 12:43 | XMS_ITS | Encounter Summary ---
Author Organization [facility] Address [address] [place] [address] Care Team Providers Care Slot Floorperson Name Role Phone Massiel Munoz MD Primary Care Provider + Encounter Details Date Type Department Care Team (Late st Contact Info) Description 01/12/2001 Outpatient Historical [facility] Internal Medicine [address] [phone] John Parry Social History Tobacco Use Types Packs/Day Years Used Date Smoking Tobacco: Never Assessed Comments Unknown Sex and Gender Information Value Date Recorded Sex Assigned at Not on file Legal Sex Female 4:00 AM CLINICAL RN LIAISON Gender Identity Not on file Sexual Orientation Not on file documented as of this encounter Plan of Treatment Not on file documented as of this encounter Visit Diagnoses Not on filedocumented in this encounter Care Teams Slot Floorperson Relationship Specialty Start Date End Date Massiel Munoz MD [address] [phone] PCP - General 09/30/00 documented as of this encounter
--- OUTSIDE RECORDS SUMMARY | 2024-12-18 12:43 | XMS_ITS | Encounter Summary ---
Author Organization [facility] Address 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
--- OUTSIDE RECORDS SUMMARY | 2024-12-18 12:43 | XMS_ITS | Encounter Summary ---
Author Organization [facility] Address 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
--- OUTSIDE RECORDS SUMMARY | 2024-12-18 12:43 | XMS_ITS | Encounter Summary ---
Author Organization [facility] Address [address] [place] [address] Care Team Providers Care Ophthalmology Technician Name Role Phone Massiel Munoz MD Primary Care Provider + Encounter Details Date Type Department Care Team (Late st Contact Info) Description 12/26/1998 Outpatient Historical [facility] Internal Medicine [address] [address] Massiel Munoz MD [facility] [address] Social History Tobacco Use Types Packs/Day Years Used Date Smoking Tobacco: Never Assessed Comments Unknown Sex and Gender Information Value Date Recorded Sex Assigned at Not on file 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
--- OUTSIDE RECORDS SUMMARY | 2024-12-18 12:43 | XMS_ITS | Encounter Summary ---
Author Organization [facility] Address 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
--- OUTSIDE RECORDS SUMMARY | 2024-12-18 12:43 | XMS_ITS | Encounter Summary ---
Author Organization [facility] Address [address] [place] [address] Care Team Providers Care Health Care Recruiter Name Role Phone Massiel Munoz MD Primary Care Provider + Encounter Details Date Type Department Care Team (Late st Contact Info) Description 09/25/1998 Outpatient Historical [facility] Internal Medicine [address] [address] Massiel Munoz MD [facility] [address] [address] Social History Tobacco Use Types Packs/Day Years Used Date Smoking Tobacco: Never Assessed Comments Unknown Sex and Gender Information Value Date Recorded Sex Assigned at Not on file Legal Sex Female 4:00 AM BYPRODUCTS OPERATOR Gender Identity Not on file Sexual Orientation Not on file documented as of this encounter Plan of Treatment Not on file documented as of this encounter Visit Diagnoses Not on filedocumented in this encounter Care Teams Health Care Recruiter Relationship Specialty Start Date End Date Massiel Munoz MD [address] [phone] PCP - General 09/30/00 documented as of this encounter
--- OUTSIDE RECORDS SUMMARY | 2024-12-18 12:43 | XMS_ITS | Encounter Summary ---
Author Organization [facility] Address [address] [place] [address] Care Team Providers Care Soubrette Name Role Phone Massiel Munoz MD Primary Care Provider + Encounter Details Date Type Department Care Team (Late st Contact Info) Description 06/18/1999 Outpatient Historical [facility] Internal Medicine [address] [address] Massiel Munoz MD [facility] [address] [address] Social History Tobacco Use Types Packs/Day Years Used Date Smoking Tobacco: Never Assessed Comments Unknown Sex and Gender Information Value Date Recorded Sex Assigned at Not on file Legal Sex Female 4:00 AM LAST PUTTER AWAY Gender Identity Not on file Sexual Orientation Not on file documented as of this encounter Plan of Treatment Not on file documented as of this encounter Visit Diagnoses Not on filedocumented in this encounter Care Teams Soubrette Relationship Specialty Start Date End Date Massiel Munoz MD [address] [phone] PCP - General 09/30/00 documented as of this encounter
--- OUTSIDE RECORDS SUMMARY | 2024-12-18 12:43 | XMS_ITS | Clinical Summary ---
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
--- OUTSIDE RECORDS SUMMARY | 2024-12-18 12:43 | XMS_ITS | CONTINUITY OF CARE DOCUMENT ---
Author Name [facility] Address Unknown Organization [facility] Address [address] [place] [address] Phone [phone] Care Team Providers Care Movement Therapist Name Role Phone Jackson ZABALA, Shad Land Unavailable [phone] TERESITA LOPEZ MD Unavailable [phone] DARLING HAN MD Unavailable PROBLEMS Condition Status Date Provider Notes Cardiology examination active Carlie Neff Shortness of breath active Craig Nacht Leg edema, bilateral active Craig Nacht Palpitations active Craig Nacht Hyperlipidemia active Craig Nacht Diabetes mellitus, type 2 active Craig Nach t ENCOUNTERS Date Type Provider Location Encounter Diag nosis - In-person encounter Office Visit Shad Paz MD [facility] Office - In-person encounter Office Visit Shad aPz MD [facility] Shortness of breathLeg edema, bilateralPalpitationsHyperlipidemiaDiabetes mellitus, [...] blood pressure, diastolic 74 mm[Hg] Da vid [facility] blood pressure, systolic 107 mm[Hg] Bandar id [facility] respiratory rate E&M 14 /min Joe Mcpherson sheeba pulse rate 72 /min Joe [facility] oxygen saturation, oximetry 94 % Joe [facility] weight E&M 336 [lb_av] Joe [facility] height E&M 64 [in_i] Joe [facility] blood pressure, diastolic 74 mm[Hg] Li nkLogic [...] Payer name Policy type / Coverage type [place] red libertarian [place] PART B Medicare [id number] [place] Medicaid [id number] ADVANCE DIRECTIVES Name Date DISCUSSED - NO DECISION MADE TREATMENT PLAN Date Name Performer Cardiology: D id not get NT ProBNP lab. Her head loft worker will get it. H er updated medication [...]
--- OUTSIDE RECORDS SUMMARY | 2024-12-18 12:43 | XMS_ITS | Encounter Summary ---
Author Organization [facility] Address [address] [place] [address] Care Team Providers Care Rn Surgical Name Role Phone Massiel Munoz MD Primary Care Provider + Encounter Details Date Type Department Care Team (Late st Contact Info) Description 09/30/2000 Outpatient Historical [address] [address] Mandy Aguilar MD NO ADDRESS ON FILE Social History Tobacco Use Types Packs/Day Years Used Date Smoking Tobacco: Never Assessed Comments Unknown Sex and Gender Information Value Date Recorded Sex Assigned at Not on file Legal Sex Female 4:00 AM NUT ROASTER Gender Identity Not on file Sexual Orientation Not on file documented as of this encounter Plan of Treatment Not on file documented as of this encounter Visit Diagnoses Not on filedocumented in this encounter Care Teams Rn Surgical Relationship Specialty Start Date End Date Massiel Munoz MD [address] [phone] PCP - General 09/30/00 documented as of this encounter
--- OUTSIDE RECORDS SUMMARY | 2024-12-18 12:43 | XMS_ITS | Encounter Summary ---
Author Organization [facility] Address [address] [place] [address] Care Team Providers Care Stars Specialist Name Role Phone Massiel Munoz MD Primary Care Provider + Encounter Details Date Type Department Care Team (Late st Contact Info) Description 06/16/2000 Outpatient Historical [facility] Internal Medicine [facility] and [address] [place] [address] Fabiola Knight MD [address] [facility] [address] [place] [address] Social History Tobacco Use Types Packs/Day Years Used Date Smoking Tobacco: Never Assessed Comments Unknown Sex and Gender Information Value Date Recorded Sex Assigned at Not on file 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
--- OUTSIDE RECORDS SUMMARY | 2024-12-18 12:43 | XMS_ITS | Encounter Summary ---
Author Organization [facility] Address 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
--- OUTSIDE RECORDS SUMMARY | 2024-12-18 12:43 | XMS_ITS | Encounter Summary ---
Author Organization [facility] Address [address] [place] [address] Care Team Providers Care Agent Based Modeler Name Role Phone Massiel Munoz MD Primary Care Provider + Encounter Details Date Type Department Care Team (Late st Contact Info) Description 09/24/1999 Outpatient Historical [address] [address] Mandy Aguilar MD NO ADDRESS ON FILE Social History Tobacco Use Types Packs/Day Years Used Date Smoking Tobacco: Never Assessed Comments Unknown Sex and Gender Information Value Date Recorded Sex Assigned at Not on file Legal Sex Female 4:00 AM FISHER CLAM Gender Identity Not on file Sexual Orientation Not on file documented as of this encounter Plan of Treatment Not on file documented as of this encounter Visit Diagnoses Not on filedocumented in this encounter Care Teams Agent Based Modeler Relationship Specialty Start Date End Date Massiel Munoz MD [address] [phone] PCP - General 09/30/00 documented as of this encounter
--- OUTSIDE RECORDS SUMMARY | 2024-12-18 12:43 | XMS_ITS | Encounter Summary ---
Author Organization [facility] Address 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
--- OUTSIDE RECORDS SUMMARY | 2024-12-18 12:43 | XMS_ITS | Encounter Summary ---
Author Organization [facility] Address [address] [place] [address] Care Team Providers Care Nursery Teacher Name Role Phone Massiel Munoz MD Primary Care Provider + Encounter Details Date Type Department Care Team (Late st Contact Info) Description 08/13/1999 Outpatient Historical [facility] Internal Medicine [address] [address] Massiel Munoz MD [facility] [address] [address] Social History Tobacco Use Types Packs/Day Years Used Date Smoking Tobacco: Never Assessed Comments Unknown Sex and Gender Information Value Date Recorded Sex Assigned at Not on file Legal Sex Female 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
--- OUTSIDE RECORDS SUMMARY | 2024-12-18 12:43 | XMS_ITS | Encounter Summary ---
Author Organization [facility] Address [address] [place] [address] Care Team Providers Care Pilot Plant Operator Name Role Phone Massiel Munoz MD Primary Care Provider + Encounter Details Date Type Department Care Team (Late st Contact Info) Description 01/07/2001 Outpatient Historical [address] [address] Mandy Aguilar MD NO ADDRESS ON FILE Social History Tobacco Use Types Packs/Day Years Used Date Smoking Tobacco: Never Assessed Comments Unknown Sex and Gender Information Value Date Recorded Sex Assigned at Not on file Legal Sex Female 4:00 AM PEELED POTATO INSPECTOR Gender Identity Not on file Sexual Orientation Not on file documented as of this encounter Plan of Treatment Not on file documented as of this encounter Visit Diagnoses Not on filedocumented in this encounter Care Teams Pilot Plant Operator Relationship Specialty Start Date End Date Massiel Munoz MD [address] [phone] PCP - General 09/30/00 documented as of this encounter
--- OUTSIDE RECORDS SUMMARY | 2024-12-18 12:43 | XMS_ITS | Encounter Summary ---
Author Organization [facility] Address [address] [place] [address] Care Team Providers Care Attendant Child Activity Name Role Phone Massiel Munoz MD Primary Care Provider + Encounter Details Date Type Department Care Team (Late st Contact Info) Description 04/15/2000 Outpatient Historical [facility] Internal Medicine [address] [phone] John Parry Social History Tobacco Use Types Packs/Day Years Used Date Smoking Tobacco: Never Assessed Comments Unknown Sex and Gender Information Value Date Recorded Sex Assigned at Not on file Legal Sex Female 4:00 AM PATENTED HOGSHEAD ASSEMBLER Gender Identity Not on file Sexual Orientation Not on file documented as of this encounter Plan of Treatment Not on file documented as of this encounter Visit Diagnoses Not on filedocumented in this encounter Care Teams Attendant Child Activity Relationship Specialty Start Date End Date Massiel Munoz MD [address] [phone] PCP - General 09/30/00 documented as of this encounter
--- OUTSIDE RECORDS SUMMARY | 2024-12-18 12:43 | XMS_ITS | Encounter Summary ---
Author Organization [facility] Address [address] [place] [address] Care Team Providers Care Fuel Cell Engineer Name Role Phone Massiel Munoz MD Primary Care Provider + Encounter Details Date Type Department Care Team (Late st Contact Info) Description 09/30/2000 Outpatient Historical [address] [address] Mandy Agiular MD NO ADDRESS ON FILE Social History Tobacco Use Types Packs/Day Years Used Date Smoking Tobacco: Never Assessed Comments Unknown Sex and Gender Information Value Date Recorded Sex Assigned at Not on file Legal Sex Female 4:00 AM SUPERINTENDENT LANDFILL OPERATIONS Gender Identity Not on file Sexual Orientation Not on file documented as of this encounter Plan of Treatment Not on file documented as of this encounter Visit Diagnoses Not on filedocumented in this encounter Care Teams Fuel Cell Engineer Relationship Specialty Start Date End Date Massiel Munoz MD [address] [phone] PCP - General 09/30/00 documented as of this encounter
--- OUTSIDE RECORDS SUMMARY | 2024-12-18 12:43 | XMS_ITS | Encounter Summary ---
Author Organization [facility] Address 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
--- OUTSIDE RECORDS SUMMARY | 2024-12-18 12:43 | XMS_ITS | Encounter Summary ---
Author Organization [facility] Address [address] [place] [address] Care Team Providers Care Electronic Security Technician Name Role Phone Massiel Munoz MD Primary Care Provider + Encounter Details Date Type Department Care Team (Late st Contact Info) Description 06/11/2000 Outpatient Historical [address] [address] Mandy Aguilar MD NO ADDRESS ON FILE Social History Tobacco Use Types Packs/Day Years Used Date Smoking Tobacco: Never Assessed Comments Unknown Sex and Gender Information Value Date Recorded Sex Assigned at Not on file Legal Sex Female 4:00 AM JAVA XML DEVELOPER Gender Identity Not on file Sexual Orientation Not on file documented as of this encounter Plan of Treatment Not on file documented as of this encounter Visit Diagnoses Not on filedocumented in this encounter Care Teams Electronic Security Technician Relationship Specialty Start Date End Date Massiel Munoz MD [address] [phone] PCP - General 09/30/00 documented as of this encounter
--- OUTSIDE RECORDS SUMMARY | 2024-12-18 12:43 | XMS_ITS | Encounter Summary ---
Author Organization [facility] Address [address] [place] [address] Care Team Providers Care Silk Top Hat Body Maker Name Role Phone Massiel Munoz MD Primary Care Provider + Encounter Details Date Type Department Care Team (Late st Contact Info) Description 09/24/1999 Outpatient Historical [address] [address] Mandy Aguilar MD NO ADDRESS ON FILE Social History Tobacco Use Types Packs/Day Years Used Date Smoking Tobacco: Never Assessed Comments Unknown Sex and Gender Information Value Date Recorded Sex Assigned at Not on file Legal Sex Female 4:00 AM MOTOR AND CHASSIS INSPECTOR Gender Identity Not on file Sexual Orientation Not on file documented as of this encounter Plan of Treatment Not on file documented as of this encounter Visit Diagnoses Not on filedocumented in this encounter Care Teams Silk Top Hat Body Maker Relationship Specialty Start Date End Date Massiel Munoz MD [address] [phone] PCP - General 09/30/00 documented as of this encounter
--- OUTSIDE RECORDS SUMMARY | 2024-12-18 12:43 | XMS_ITS | Encounter Summary ---
Author Organization [facility] Address [address] [place] [address] Care Team Providers Care Men'S Locker Room Attendant Name Role Phone Massiel Munoz MD Primary Care Provider + Encounter Details Date Type Department Care Team (Late st Contact Info) Description 09/25/1998 Outpatient Historical [address] [address] Mandy Aguilar MD NO ADDRESS ON FILE Social History Tobacco Use Types Packs/Day Years Used Date Smoking Tobacco: Never Assessed Comments Unknown Sex and Gender Information Value Date Recorded Sex Assigned at Not on file Legal Sex Female 4:00 AM PROGRAM MANAGER Gender Identity Not on file Sexual Orientation Not on file documented as of this encounter Plan of Treatment Not on file documented as of this encounter Visit Diagnoses Not on filedocumented in this encounter Care Teams Men'S Locker Room Attendant Relationship Specialty Start Date End Date Massiel Munoz MD [address] [phone] PCP - General 09/30/00 documented as of this encounter
--- OUTSIDE RECORDS SUMMARY | 2024-12-18 12:43 | XMS_ITS | Encounter Summary ---
Author Organization [facility] Address [address] [place] [address] Care Team Providers Care Loan And Credit Manager Name Role Phone Massiel Munoz MD [...] on file Legal Sex Female 4:00 AM DRESSMAKER OR TAILOR Gender Identity Not on file Sexual Orientation Not on file documented as of this encounter Plan of Treatment Not on file documented as of this encounter Visit Diagnoses Diagnosis Gynecological examination- Primary documented in this encounter Care Teams Loan And Credit Manager Relationship Specialty Start Date End Date Massiel Munoz MD [address] [phone] PCP - General 09/30/00 documented as of this encounter
--- OUTSIDE RECORDS SUMMARY | 2024-12-18 12:43 | XMS_ITS | Encounter Summary ---
Author Organization [facility] Address [address] [place] [address] Care Team Providers Care Gradall Operator Name Role Phone Massiel Munoz MD Primary Care Provider + Encounter Details Date Type Department Care Team (Late st Contact Info) Description 06/30/1998 Outpatient Historical [address] [address] Mandy Aguilar MD NO ADDRESS ON FILE Social History Tobacco Use Types Packs/Day Years Used Date Smoking Tobacco: Never Assessed Comments Unknown Sex and Gender Information Value Date Recorded Sex Assigned at Not on file Legal Sex Female 4:00 AM SUPERVISOR INTERMEDIATES Gender Identity Not on file Sexual Orientation Not on file documented as of this encounter Plan of Treatment Not on file documented as of this encounter Visit Diagnoses Not on filedocumented in this encounter Care Teams Gradall Operator Relationship Specialty Start Date End Date Massiel Munoz MD [address] [phone] PCP - General 09/30/00 documented as of this encounter
--- OUTSIDE RECORDS SUMMARY | 2024-12-18 12:43 | XMS_ITS | Encounter Summary ---
Author Organization [facility] Address [address] [place] [address] Care Team Providers Care Tape Control Skin Or Spar Mill Operator Name Role Phone Massiel Munoz MD Primary Care Provider + Encounter Details Date Type Department Care Team (Late st Contact Info) Description 07/11/1998 Outpatient Historical [address] [address] Mandy Aguilar MD NO ADDRESS ON FILE Social History Tobacco Use Types Packs/Day Years Used Date Smoking Tobacco: Never Assessed Comments Unknown Sex and Gender Information Value Date Recorded Sex Assigned at Not on file Legal Sex Female 4:00 AM SPLIT LEATHER DEPARTMENT SUPERVISOR Gender Identity Not on file Sexual Orientation Not on file documented as of this encounter Plan of Treatment Not on file documented as of this encounter Visit Diagnoses Not on filedocumented in this encounter Care Teams Tape Control Skin Or Spar Mill Operator Relationship Specialty Start Date End Date Massiel Munoz MD [address] [phone] PCP - General 09/30/00 documented as of this encounter
--- OUTSIDE RECORDS SUMMARY | 2024-12-18 12:43 | XMS_ITS | Encounter Summary ---
Author Organization [facility] Address [address] [place] [address] Care Team Providers Care Rollout Manager Name Role Phone Massiel Munoz MD Primary Care Provider + Encounter Details Date Type Department Care Team (Late st Contact Info) Description 03/17/2000 Outpatient Historical [address] [address] Mandy Aguilar MD NO ADDRESS ON FILE Social History Tobacco Use Types Packs/Day Years Used Date Smoking Tobacco: Never Assessed Comments Unknown Sex and Gender Information Value Date Recorded Sex Assigned at Not on file Legal Sex Female 4:00 AM DEPARTMENT HEAD JUNIOR COLLEGE Gender Identity Not on file Sexual Orientation Not on file documented as of this encounter Plan of Treatment Not on file documented as of this encounter Visit Diagnoses Not on filedocumented in this encounter Care Teams Rollout Manager Relationship Specialty Start Date End Date Massiel Munoz MD [address] [phone] PCP - General 09/30/00 documented as of this encounter
--- OUTSIDE RECORDS SUMMARY | 2024-12-18 12:43 | XMS_ITS | Encounter Summary ---
Author Organization [facility] Address [address] [place] [address] Care Team Providers Care Wood Carving Machine Operator Name Role Phone Massiel Munoz MD Primary Care Provider + Encounter Details Date Type Department Care Team (Late st Contact Info) Description 05/07/1999 Outpatient Historical [facility] [address] [address] Massiel Munoz MD [facility] [address] [address] Social History Tobacco Use Types Packs/Day Years Used Date Smoking Tobacco: Never Assessed Comments Unknown Sex and Gender Information Value Date Recorded Sex Assigned at Not on file Legal Sex Female 4:00 AM SAMPLE PREP TECHNICIAN Gender Identity Not on file Sexual Orientation Not on file documented as of this encounter Plan of Treatment Not on file documented as of this encounter Visit Diagnoses Not on filedocumented in this encounter Care Teams Wood Carving Machine Operator Relationship Specialty Start Date End Date Massiel Munoz MD [address] [phone] PCP - General 09/30/00 documented as of this encounter
--- OUTSIDE RECORDS SUMMARY | 2024-12-18 12:44 | XMS_ITS | Encounter Summary ---
Author Organization [facility] Address [address] [place] [address] Care Team Providers Care Extension Forester Name Role Phone Massiel Munoz MD Primary Care Provider + Encounter Details Date Type Department Care Team (Late st Contact Info) Description 06/26/1998 Outpatient Historical [facility] Internal Medicine [address] [address] Massiel Munoz MD [facility] [address] [address] Social History Tobacco Use Types Packs/Day Years Used Date Smoking Tobacco: Never Assessed Comments Unknown Sex and Gender Information Value Date Recorded Sex Assigned at Not on file Legal Sex Female 4:00 AM MANAGER SOURCING Gender Identity Not on file Sexual Orientation Not on file documented as of this encounter Plan of Treatment Not on file documented as of this encounter Visit Diagnoses Not on filedocumented in this encounter Care Teams Extension Forester Relationship Specialty Start Date End Date Massiel Munoz MD [address] [phone] PCP - General 09/30/00 documented as of this encounter
--- OUTSIDE RECORDS SUMMARY | 2024-12-18 12:44 | XMS_ITS | Encounter Summary ---
Author Organization [facility] Address [address] [place] [address] Care Team Providers Care Job Lithographer Name Role Phone Massiel Munoz MD Primary Care Provider + Encounter Details Date Type Department Care Team (Late st Contact Info) Description 06/28/1998 Outpatient Historical [address] [address] Mandy Aguilar MD NO ADDRESS ON FILE Social History Tobacco Use Types Packs/Day Years Used Date Smoking Tobacco: Never Assessed Comments Unknown Sex and Gender Information Value Date Recorded Sex Assigned at Not on file Legal Sex Female 4:00 AM CYBER LEGAL ADVISOR Gender Identity Not on file Sexual Orientation Not on file documented as of this encounter Plan of Treatment Not on file documented as of this encounter Visit Diagnoses Not on filedocumented in this encounter Care Teams Job Lithographer Relationship Specialty Start Date End Date Massiel Munoz MD [address] [phone] PCP - General 09/30/00 documented as of this encounter
--- NOTE | 2024-12-18 13:44 | ED_ITS ---
HPI - Extremity Injury (Lower) General Chief Complaint: Extremity Injury, Lower Stated Complaint: left ankle injury Time Seen by Provider: 12/18/24 12:33 History of Present Illness HPI Narrative: Patient is a 54-year-old female who presents ER with left ankle pain. Says for to inversion ankle injury while walking but has pain over the medial malleolus. She is able to walk. Mild tingling. Did not strike her head or lose consciousness. No additional concerns. Has an ice pack applied to the area. Related Data Home Medications ?Medication ?Instructions ?Recorded ?Confirmed ?Last Taken ?Type atorvastatin 10 mg tablet 10 mg PO DAILY 07/21/23 07/21/23 Unknown History bupropion HCl 150 mg 24 hr tablet, 150 mg PO DAILY 07/21/23 07/21/23 Unknown History extended release buspirone 10 mg tablet 20 mg PO TID 07/21/23 07/21/23 Unknown History cariprazine 1.5 mg capsule 1.5 mg PO DAILY 07/21/23 07/21/23 Unknown History (Vraylar) cyclobenzaprine 10 mg tablet 10 mg PO Q4-8H PRN muscle spasms 07/21/23 07/21/23 Unknown History deutetrabenazine 6 mg tablet 6 mg PO BID 07/21/23 07/21/23 Unknown History (Austedo) deutetrabenazine 9 mg tablet 9 mg PO BID 07/21/23 07/21/23 Unknown History (Austedo) gabapentin 600 mg tablet 600 mg PO TID 07/21/23 07/21/23 Unknown History glimepiride 1 mg tablet 1 mg PO DAILY 07/21/23 07/21/23 Unknown History hydroxyzine HCl 10 mg tablet 10 mg PO DAILY 07/21/23 07/21/23 Unknown History lamotrigine 100 mg tablet 100 mg PO DAILY 07/21/23 07/21/23 Unknown History metoprolol tartrate 25 mg PO BID 07/21/23 07/21/23 Unknown History Allergies Allergy/AdvReac Type Severity Reaction Status Date / Time latex Allergy Mild Rash Verified 12/18/24 12:28 Sulfa (Sulfonamide Allergy Redness of Verified 12/18/24 12:28 Antibiotics) Skin vancomycin Allergy Redness of Verified 12/18/24 12:28 Skin morphine AdvReac Redness of Verified 12/18/24 12:28 Skin Review of Systems Constitutional: Constitutional: Reports no additional constitutional complaints Musculoskeletal: Musculoskeletal: Reports no additional musculoskeletal complaints Integumentary/Breasts: Skin/Breast: Reports system reviewed and no additional complaints, except as docu [facility] Past Medical History Medical History Bipolar disorder, unspecified COPD (chronic obstructive pulmonary disease) Diabetes Hypertension Family History Family History Mother Pulmonary embolism History of quadruple bypass Father Heart attack Social History Social History Smoking packs per day: 2 Smoking cigarettes per day: 40.0 Years smoked: 6 Smoking pack-years: 12.00 Smoking status: Former smoker Tobacco type: cigarettes Alcohol intake: never Substance use type: marijuana Do You Feel Safe in your Home?: Yes Lack of Transportation: No Lack of Food: Sometimes True Current Housing: I Have Housing Concerned About Future Housing: YES Difficulty Paying Gas/Electric Bills: No Difficulty Paying for Meds: No Currently Unemployed: No Education: Associate Degree Difficulty w/ Childcare or Family Care: No Spiritual care concerns: No Exam Narrative: GENERAL: Well-appearing, morbidly obese, and in no acute distress. HEAD: Normocephalic, atraumatic. ENT: Mucous membranes moist. HEART: Regular rate and rhythm. Normal peripheral pulses. EXTREMITIES: Normal range of motion. No edema. Mild tenderness over the medial malleolus of the left ankle without significant swelling. SKIN: Warm, dry, no rash. NEURO: Alert and oriented x3. PSYCH: Normal mood and affect. Course Vital Signs Vital signs: Vital Signs Temperature 98.1 F 12/18/24 10:51 Pulse Rate 94 12/18/24 10:51 Respiratory Rate 20 12/18/24 10:51 Blood Pressure 132/86 12/18/24 10:51 Pulse Oximetry 97 12/18/24 10:51 Oxygen Delivery Room Air 12/18/24 10:51 Temperature 98.1 F 12/18/24 10:51 Pulse Rate 94 12/18/24 10:51 Respiratory Rate 20 12/18/24 10:51 Blood Pressure 132/86 12/18/24 10:51 Pulse Oximetry 97 12/18/24 10:51 Oxygen Delivery Room Air 12/18/24 10:51 Discharge Plan Discharge Clinical Impression: Ankle sprain Patient Disposition: Home Condition: Stable Instructions: Ankle Sprain (ED), P.R.I.C.E. Treatment (ED) Additional Instructions: Return ER if you suffered a new injury, you have increased pain, you develop chest pain shortness of breath, or have additional concerns. Patient Language: Taiwanese Prescriptions: New naproxen 375 mg tablet 375 mg PO BID Qty: 14 0RF No Action cyclobenzaprine 10 mg Tablet 10 mg PO Q4-8H PRN (Reason: muscle spasms) gabapentin 600 mg Tablet 600 mg PO TID atorvastatin 10 mg Tablet 10 mg PO DAILY glimepiride 1 mg Tablet 1 mg PO DAILY buspirone 10 mg Tablet 20 mg PO TID hydroxyzine HCl 10 mg Tablet 10 mg PO DAILY lamotrigine 100 mg Tablet 100 mg PO DAILY Vraylar 1.5 mg Capsule 1.5 mg PO DAILY Austedo 6 mg Tablet 6 mg PO BID Austedo 9 mg Tablet 9 mg PO BID metoprolol tartrate 25 mg PO BID bupropion HCl 150 mg Tablet Extended Release 24 Hr 150 mg PO DAILY miconazole nitrate [Antifungal (miconazole)] 2 % powder 1 applic topical BID Qty: 85 0RF Tussin DM Cough and Chest 5-100 mg/5 mL liquid 10 ml PO Q4-8H PRN (Reason: cough) Qty: 237 0RF Follow-up/Referrals: Socrates,MD Evens [Primary Care Provider] - 1 Week
[2024-12-18] MEDS: HYDROcodone/acetaminophen (*CRX) 5-325 MG TABLET 1 TAB PO (14:06)
[2024-12-18 14:10] VITALS: BP 116/81; PULSE 86; RESP 18; TEMP 36.6; O2SAT 98
== END 2024-12-18 17:39 | disposition home or self-care (01) ==
PROVIDERS: Emergency Provider Emergency Medicine; PCP Internal Medicine
DX: S93.402A Sprain of unspecified ligament of left ankle, initial encounter (principal); X50.0XXA Overexertion from strenuous movement or load, initial encounter
CPT/HCPCS: 73610; 99283; A9270